=== PATIENT | male | born 1990 | race Caucasian/White ===

== ENCOUNTER 2020-03-03 08:33 | Inpatient (IN) | payer MEDICARE, MEDICAID, SELFPAY ==
[2020-03-03 09:06] VITALS: BP 152/102; PULSE 130; RESP 16; TEMP 37.6; O2SAT 99; BMI 26.5
--- NOTE | 2020-03-03 09:30 | ECG_ITS ---
Test Reason : TACHICARDIA Blood Pressure : / mmHG Vent. Rate : 134 BPM Atrial Rate : 134 BPM P-R Int : 120 ms QRS Dur : 084 ms QT Int : 294 ms P-R-T Axes : 057 082 031 degrees QTc Int : 439 ms Sinus tachycardia Otherwise normal ECG No previous ECGs available Referred By: Ivana Moa Electronically Signed By:JESSIE MOLINA
--- NOTE | 2020-03-03 09:30 | XR_ITS ---
EXAMINATION: XR CHEST CLINICAL INFORMATION: Short of breath COMPARISON: None TECHNIQUE: Frontal view of the chest was obtained. FINDINGS: No significant abnormality is noted involving the heart, lungs, mediastinum, bony thorax or soft tissues. XR/XR chest 1V IMPRESSION: Unremarkable chest examination.
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
[2020-03-03 09:53] VITALS: PULSE 122
[2020-03-03 10:19] LABS: MANUAL DIFF FLAG NO
[2020-03-03 10:20] LABS: Basophils Percent Auto 0.3 % (0-2); Eosinophils Percent Auto 0.1 % (0-4); Hematocrit 51.1 % (42-52); Hemoglobin 18.2 g/dl (14.0-18.0); Imm Gran Abs Auto 0.03 X10*3/uL (0.00-0.03); Imm Gran Pct Auto 0.2 % (0.0-0.4); Lymphocytes Absolute Auto 1.5 X10*3/uL (1.2-4.9); Lymphocytes Percent Auto 11.1 % (20-40); Mean Corpuscular HGB Conc 35.6 g/dl (31.0-36.0); Mean Corpuscular Hemoglobin 32.2 pg (27.0-33.0); Mean Corpuscular Volume 90.4 fL (80-98); Mean Platelet Volume 9.4 fL (9.4-12.4); Monocytes Absolute Auto 1.3 X10*3/uL (0.1-1.2); Monocytes Percent Auto 9.6 % (2-11); Neutrophils Absolute Auto 10.8 X10*3/uL (2.0-8.3); Neutrophils Percent Auto 78.7 % (45-73); Platelet Count 287 X10*3/uL (160-400); Red Blood Count 5.65 X10*6/uL (4.60-5.80); Red Cell Distribution Width 11.8 % (11.0-16.0); White Blood Count 13.7 X10*3/uL (4.8-10.8)
[2020-03-03] MEDS: LORazepam 1 MG TABLET PO (10:21)
[2020-03-03 10:34] LABS: Glucose Urine UA NEG (NEG); Leukocyte Esterase Urine NEG (NEG); Nitrite Urine NEG (NEG); Specific Gravity - Urine 1.015 (1.005-1.025); Urine Blood NEG (NEG); Urine Ketones NEG (NEG); Urine Protein NEG (NEG-TRACE)
[2020-03-03 10:36] LABS: Appearance Urine CLEAR; Color Urine YELLOW
[2020-03-03 10:45] LABS: Ethanol < 10 mg/dL
[2020-03-03 10:47] LABS: Acetaminophen LAB < 1 mcg/mL (<30); Alanine Aminotransferase 85 U/L (0-40); Albumin Level 5.3 g/dL (3.5-5.0); Alkaline Phosphatase 132 U/L (39-117); Anion Gap 15 (12-20); Aspartate Amino Transferase 22 U/L (5-37); Bilirubin Direct 0.5 mg/dL (0.0-0.5); Bilirubin Total 1.2 mg/dL (0.0-1.0); Blood Urea Nitrogen 3 mg/dL (9-16); Calcium 11.8 mg/dL (8.4-10.2); Carbon Dioxide 24 mmol/L (22-29); Chloride 104 mmol/L (96-108); Creatinine Clr Calc Pharmacy 107.5; Estimated Glomerular Filt Rate > 60; Glucose Random 121 mg/dL (60-115); Lipase 17 U/L (8-78); Magnesium 2.2 mg/dL (1.6-2.6); Potassium 3.6 mmol/l (3.3-5.1); Salicylate < 5.0 mg/dL (15-30); Sodium 139 mmol/L (135-145); Total Protein 8.5 g/dL (6.5-8.0)
[2020-03-03 10:48] LABS: Amphetamine Screen Urine Not Detected (Not Detect); Barbiturates, Urine Not Detected (Not Detect); Benzodiazepines Screen Urine Not Detected (Not Detect); Cannabinoid Screen Urine POSITIVE (Not Detect); Cocaine Screen Urine Not Detected (Not Detect); Opiate Screen Urine Not Detected (Not Detect); Phencyclidine Screen Urine Not Detected (Not Detect)
[2020-03-03 12:07] VITALS: BP 147/95; PULSE 119; RESP 18; O2SAT 100
[2020-03-03 15:55] VITALS: BP 130/82; PULSE 103; RESP 16; TEMP 36.4; O2SAT 98
[2020-03-03 18:00] VITALS: BP 151/94; PULSE 123; RESP 16; TEMP 37.1; O2SAT 99
[2020-03-03] MEDS: LORazepam 1 MG TABLET 2 MG PO (18:38)
[2020-03-04] VITALS: BP 132/84; PULSE 82; RESP 18; TEMP 37.2; O2SAT 98
--- NOTE | 2020-03-04 02:09 | PC.NURSE ---
PATIENT RESTING COMFORTABLY AT THIS TIME. RESPIRATIONS EVEN/UNLABORED, CALM/COOPERATIVE. AWAKE, BUT HAS NO NEEDS/COMPLAINTS AT THIS TIME. WILL CONTINUE TO MONITOR. SITTER REMAINS PRESENT.
--- NOTE | 2020-03-04 07:18 | PC.NURSE ---
Report received. PT is eating breakfast. Calm and cooperative. PT is inpatient bed search.
--- NOTE | 2020-03-04 13:31 | PC.NURSE ---
PT is pacing around, wants to be smoke a cigarette. PT is refusing to eat and has not had anything all day today.
[2020-03-04 15:23] VITALS: BP 139/86; PULSE 100; RESP 18; O2SAT 98
--- NOTE | 2020-03-04 15:39 | PC.NURSE ---
Report received from Chaim HERRERA. Patient is resting comfortably in room at this time. Appears anxious at times and stands at edge of room. Shows no sign of attempting to leave. Remains calm and cooperative. Respirations regular and even. SKin PWD. VSS. Awaiting inpatient bed search per N. Evaluates 30 minutes prior. Will continue to monitor.
--- NOTE | 2020-03-04 17:25 | PC.NURSE ---
Patient continues to stand at entry way of room, but remains calm and cooperative, no ditress noted. Will continue to monitor.
--- NOTE | 2020-03-04 18:15 | PC.NURSE ---
Per [facility] bed search is exhausted for today.
--- NOTE | 2020-03-04 19:07 | PC.NURSE ---
Patient just got transferred from main ED, calm and cooperative, ambulated without gait deficit, poor eye contact, currently in shower, per report patient has been assessed by the [facility], disposition in-patient bed search section 12, denied distress at this time, will continue to monitor
[2020-03-04 22:34] LABS: COVID-19 Test Negative (Negative)
[2020-03-04] MEDS: LORazepam 1 MG TABLET 2 MG PO (23:34)
--- NOTE | 2020-03-04 23:44 | PC.NURSE ---
Patient wandering i the POD, requested Olanzapine 20 mg by saying he used to take in the past was off for years, provider notified/decided not order Olanzapine instead offered Ativan 2 mg, patient agreed and accepted/pending effect.
[2020-03-05 00:39] VITALS: BP 140/88; PULSE 111; RESP 18; TEMP 37.2; O2SAT 97
[2020-03-05 06:00] VITALS: BP 137/84; PULSE 112; RESP 20; TEMP 36.8; O2SAT 100
--- NOTE | 2020-03-05 07:34 | PC.NURSE ---
Report received from SHARON White. Patient awake and ate breakfast independently. Calm and cooperative. Walking about POD and interacting with staff. Respirations regular and even. Skin PWD. Remains inpatient bed search at this time. Will continue to monitor.
[2020-03-05] MEDS: Acetaminophen 325 MG TABLET 975 MG PO (08:20)
--- NOTE | 2020-03-05 08:22 | PC.NURSE ---
Patient reporting a headache and requesting Tylenol. Made Elizabeth DOMINGUEZ aware and Tylenol given to patient.
[2020-03-05 09:55] VITALS: BP 118/68; PULSE 110; RESP 16; TEMP 37.1; O2SAT 98
--- NOTE | 2020-03-05 11:28 | PC.NURSE ---
Report received. Pt currently sleeping, no signs of distress, respirations even and unlabored.
--- NOTE | 2020-03-05 13:45 | PC.NURSE ---
Awake at current, drinking a coffee in the common area, calm and cooperative at this time.
--- NOTE | 2020-03-05 15:50 | PC.NURSE ---
Pt on phone at current, no complaints at this time, calm and cooperative
[2020-03-05 15:56] VITALS: BP 117/71; PULSE 93; RESP 18; TEMP 37.1; O2SAT 99
--- NOTE | 2020-03-05 18:44 | PC.NURSE ---
Pt currently resting in bed, no complaints at this time, calm and cooperative.
--- NOTE | 2020-03-05 19:32 | PC.NURSE ---
Report received. PT is walking around the unit. Calm and cooperative. PT is inpatient bed search.
[2020-03-05 21:48] VITALS: BP 130/70; PULSE 94; RESP 18; TEMP 36.8; O2SAT 97
[2020-03-05 23:53] VITALS: BP 136/81; PULSE 102; RESP 20; TEMP 36.4; O2SAT 97
--- NOTE | 2020-03-06 01:21 | PC.NURSE ---
PT is up and pacing around the unit. Asked this nurse for caffeine, this nurse suggested that he try to get some rest in bed, PT was given katelyn shelby to drink and went and sat in the common area to watch TV.
--- NOTE | 2020-03-06 02:03 | PC.NURSE ---
PT laying down in bed. Respirations even and unlabored.
[2020-03-06 04:56] VITALS: RESP 18
[2020-03-06 06:08] VITALS: BP 120/75; PULSE 99; RESP 18; TEMP 36.1; O2SAT 99
--- NOTE | 2020-03-06 06:58 | PC.NURSE ---
Report recieved. PT currently resting, calm and cooperative, denies complaints. PT is inpatient bedsearch.
[2020-03-06 09:56] VITALS: RESP 16
[2020-03-06 16:36] VITALS: BP 123/80; PULSE 96; RESP 18; TEMP 36.6; O2SAT 97
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
[2020-03-07] MEDS: traZODone HCL 50 MG TABLET PO (02:08)
[2020-03-07] MEDS: hydrOXYzine HCL 25 MG TABLET PO (02:08)
[2020-03-07 06:00] VITALS: BP 128/83; PULSE 75; RESP 18; TEMP 36.6; O2SAT 100
[2020-03-07 06:45] VITALS: BP 128/83; PULSE 75; RESP 18; TEMP 36.6; O2SAT 100
[2020-03-07] MEDS: Thiamine HCL 100 MG TABLET PO (08:44)
[2020-03-07 09:09] LABS: Estimated Average Glucose 111 mg/dL; Hemoglobin A1C 151.2579 umol/L; Hemoglobin A1c % 5.5 %
[2020-03-07 09:12] LABS: Amylase 36 U/L (28-100); Cholesterol 157 mg/dL; HDL Cholesterol 40 mg/dL; Iron 187 mcg/dL (45-160); LDL Cholesterol Calculated 99 mg/dl; Lipase 25 U/L (8-78); Magnesium 2.3 mg/dL (1.6-2.6); Percent Iron Saturation 62 % (15-50); Total Iron Binding Capacity 303 mcg/dL (228-428); Triglycerides 93 mg/dL; Unsaturated Iron Binding 116 ug/dL
[2020-03-07 09:35] LABS: TSH reflex Free T4 1.18 mIU/mL (0.32-4.0); Vitamin D 25-OH Total 48.6 ng/mL (>30)
[2020-03-07 09:47] LABS: Folate 10.6 ng/mL (> or = 4.0); Vitamin B12 319 pg/mL (200-900)
[2020-03-07 12:08] VITALS: BMI 26.2
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
[2020-03-07 18:00] VITALS: BP 135/90; PULSE 96; TEMP 35.6
[2020-03-07] MEDS: LORazepam 0.5 MG TABLET PO (19:23)
[2020-03-07] MEDS: OLANZapine 2.5 MG TABLET 7.5 MG PO (20:47)
[2020-03-08 06:00] VITALS: BP 133/98; PULSE 93; TEMP 36.4; O2SAT 100
[2020-03-08] MEDS: Thiamine HCL 100 MG TABLET PO (09:05)
[2020-03-08] MEDS: OLANZapine 5 MG TABLET PO (09:06)
--- NOTE | 2020-03-08 15:33 | HO.PSYCHPN ---
Subjective Subjective Date of Service: 03/08/20 Reason For Visit: Paranoia Subjective Notes: Conditional Voluntary Interim History: took olanzapine - can't tell if it is working yet he slept he discussed not wanting to stay scared of everything Medication Compliance: Yes Side effects from medications: No Attending Groups: Intermittent Review of Systems Comments: no xs sedation Mental Status Exam Mental Status Exam Patient Appearance: Fatigued Patient Orientation: Person, Place and Time Level of Consciousness: Awake Patient Behavior: Guarded Mood Description: Constricted Affect Description: Suspicious Patient Cognition Impaired: No Ability to Follow Directions: Good Speech Pattern: Clear Delusions: Paranoid Ideation Thought Process: Intact and Goal Oriented Thought Content: positive for Intact and positive for Thought Blocking Depressive Symptoms: Diff. Making Decisions Judgement: Fair Diagnostics Vital Signs (24Hr): Vital Signs - 24 hr 03/07/20 18:00 03/08/20 06:00 Temperature 96.0 F L 97.5 F Pulse Rate 96 93 Blood Pressure 135/90 H 133/98 H Pulse Oximetry 100 Body Mass Index 26.2 Labs Results: 03/03/20 10:10 03/03/20 10:10 Labs: Laboratory Results - last 48 hr 03/07/20 03/07/20 03/07/20 08:30 08:30 08:30 Estimat Average Glucose 111 Hemoglobin A1c % 5.5 Magnesium 2.3 Iron 187 H TIBC 303 % Saturation 62 H Unsat Iron Binding 116 Triglycerides 93 Cholesterol 157 LDL Cholesterol, Calc 99 HDL Cholesterol 40 Amylase 36 Lipase 25 Vitamin B12 319 25-OH Vitamin D Total 48.6 Folate 10.6 TSH 1.18 Imaging Radiology Impressions: ITS Impressions Chest X-Ray 03/03/20 09:30 IMPRESSION: Unremarkable chest examination. Medications Medications Current Medications Generic Name Dose Route Start Last Admin Trade Name Freq PRN Reason Stop Dose Admin Acetaminophen 650 mg 03/06/20 16:58 Acetaminophen 325 Mg Tablet PO Q6H PRN Headache/Pain Mild Scale (1-3) Al Hydroxide/Mg Hydroxide 30 ml 03/06/20 16:58 Magnesium Hydrox/Alum Hydrox 30 Ml Oral.Susp PO Q6H PRN Heartburn/Nausea Hydroxyzine HCl 25 mg 03/06/20 16:58 03/07/20 02:08 Hydroxyzine Hcl 25 Mg Tablet PO 25 mg BEDTIME PRN Administration Anxiety Lorazepam 0.5 mg 03/06/20 16:58 03/07/20 19:23 Lorazepam 0.5 Mg Tablet PO 0.5 mg Q4H PRN Administration Anxiety, withdrawal sx Magnesium Hydroxide 30 ml 03/06/20 16:58 Milk Of Magnesia 30 Ml Oral.Susp PO DAILY PRN Constipation Multivitamins/Minerals 1 tab 03/07/20 09:00 03/08/20 09:05 Multivitamin With Minerals Tablet PO 1 tab DAILY KIANA Administration Olanzapine 5 mg 03/06/20 16:58 03/08/20 09:06 Olanzapine 5 Mg Tablet PO 5 mg TID PRN Administration psychosis Olanzapine 10 mg 03/08/20 21:00 Olanzapine 2.5 Mg Tablet PO BEDTIME KIANA Thiamine HCl 100 mg 03/07/20 09:00 03/08/20 09:05 Thiamine Hcl 100 Mg Tablet PO 100 mg DAILY KIANA Administration Trazodone HCl 50 mg 03/06/20 16:58 03/07/20 02:08 Trazodone Hcl 50 Mg Tablet PO 50 mg BEDTIME PRN Administration Insomnia Allergies Allergies Allergy/AdvReac Type Severity Reaction Status Date / Time No Known Allergies Allergy Verified 03/03/20 09:30 Assessment & Plan Assessment & Plan (1) Paranoia: Status: Acute Code(s): F22 - Delusional disorders Assessment and Plan: taking antipsychotic not completely withdrawn sitting in kitchen , sometimes engaging with other patients Greater than 50% of the session was spent on counseling and/or coordination of care
[2020-03-08 16:36] VITALS: BP 132/86; PULSE 117; TEMP 36.9
[2020-03-08] MEDS: OLANZapine 2.5 MG TABLET 10 MG PO (20:31)
[2020-03-08] MEDS: traZODone HCL 50 MG TABLET PO (20:34)
[2020-03-08] MEDS: hydrOXYzine HCL 25 MG TABLET PO (20:34)
[2020-03-09] MEDS: Thiamine HCL 100 MG TABLET PO (08:32)
[2020-03-09] MEDS: OLANZapine 5 MG TABLET PO (08:33)
[2020-03-09 08:44] VITALS: BP 137/67; PULSE 92; TEMP 36.2; O2SAT 97
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
[2020-03-09 18:00] VITALS: BP 136/87; PULSE 120; TEMP 36.9
[2020-03-09] MEDS: traZODone HCL 50 MG TABLET PO (20:03)
[2020-03-09] MEDS: OLANZapine 2.5 MG TABLET 10 MG PO (20:03)
[2020-03-09] MEDS: hydrOXYzine HCL 25 MG TABLET PO (20:03)
[2020-03-10] MEDS: traZODone HCL 50 MG TABLET PO (00:41)
[2020-03-10 06:30] VITALS: BP 149/92; PULSE 100; RESP 18; TEMP 35.9; O2SAT 100
[2020-03-10] MEDS: Thiamine HCL 100 MG TABLET PO (08:26)
[2020-03-10] MEDS: OLANZapine 2.5 MG TABLET PO (08:26)
--- NOTE | 2020-03-10 10:03 | HO.PSYCHPN ---
Subjective Subjective Date of Service: 03/11/20 Reason For Visit: Paranoia Subjective Notes: Conditional Voluntary and 3 Day Interim History: Pt depressed withdrawn denies active si he is paranoid fearful withdrawn Medication Compliance: Yes Mental Status Exam Mental Status Exam Patient Appearance: Appropriate Patient Orientation: Person, Place, Time and Situation Level of Consciousness: Awake Patient Behavior: Guarded Mood Description: Anxious Affect Description: Apathetic Ability to Follow Directions: Good Speech Pattern: Clear Thought Process: Intact Thought Content: positive for Poverty of Content Depressive Symptoms: Diff. Making Decisions and Isolating-Friends/Family Abnormal Motor Activity Signs and Symptoms: Psychomotor Retardation Judgement: Fair Diagnostics Vital Signs (24Hr): Vital Signs - 24 hr 03/09/20 18:00 03/10/20 06:30 Temperature 98.4 F 96.6 F L Pulse Rate 120 H 100 Respiratory Rate 18 Blood Pressure 136/87 149/92 H Pulse Oximetry 100 Body Mass Index 26.2 Labs Results: 03/03/20 10:10 03/03/20 10:10 Imaging Radiology Impressions: ITS Impressions Chest X-Ray 03/03/20 09:30 IMPRESSION: Unremarkable chest examination. Medications Medications Current Medications Generic Name Dose Route Start Last Admin Trade Name Freq PRN Reason Stop Dose Admin Acetaminophen 650 mg 03/06/20 16:58 Acetaminophen 325 Mg Tablet PO Q6H PRN Headache/Pain Mild Scale (1-3) Al Hydroxide/Mg Hydroxide 30 ml 03/06/20 16:58 Magnesium Hydrox/Alum Hydrox 30 Ml Oral.Susp PO Q6H PRN Heartburn/Nausea Hydroxyzine HCl 25 mg 03/06/20 16:58 03/09/20 20:03 Hydroxyzine Hcl 25 Mg Tablet PO 25 mg BEDTIME PRN Administration Anxiety Lorazepam 0.5 mg 03/06/20 16:58 03/07/20 19:23 Lorazepam 0.5 Mg Tablet PO 0.5 mg Q4H PRN Administration Anxiety, withdrawal sx Magnesium Hydroxide 30 ml 03/06/20 16:58 Milk Of Magnesia 30 Ml Oral.Susp PO DAILY PRN Constipation Multivitamins/Minerals 1 tab 03/07/20 09:00 03/10/20 08:26 Multivitamin With Minerals Tablet PO 1 tab DAILY KIANA Administration Olanzapine 10 mg 03/08/20 21:00 03/09/20 20:03 Olanzapine 2.5 Mg Tablet PO 10 mg BEDTIME KIANA Administration Olanzapine 2.5 mg 03/10/20 09:00 03/10/20 08:26 Olanzapine 2.5 Mg Tablet PO 2.5 mg DAILY KIANA Administration Thiamine HCl 100 mg 03/07/20 09:00 03/10/20 08:26 Thiamine Hcl 100 Mg Tablet PO 100 mg DAILY KIANA Administration Trazodone HCl 50 mg 03/06/20 16:58 03/10/20 00:41 Trazodone Hcl 50 Mg Tablet PO 50 mg BEDTIME PRN Administration Insomnia Allergies Allergies Allergy/AdvReac Type Severity Reaction Status Date / Time No Known Allergies Allergy Verified 03/03/20 09:30 Assessment & Plan Assessment & Plan (1) Paranoia: Status: Acute Code(s): F22 - Delusional disorders Assessment and Plan: feliz warning cont zyprexa Greater than 50% of the session was spent on counseling and/or coordination of care
[2020-03-10 17:05] VITALS: BP 135/83; PULSE 106; TEMP 36.8
[2020-03-10] MEDS: OLANZapine 2.5 MG TABLET 10 MG PO (20:26)
[2020-03-11 06:05] VITALS: BP 145/94; PULSE 79; RESP 18; TEMP 36.7; O2SAT 100
[2020-03-11] MEDS: Thiamine HCL 100 MG TABLET PO (08:56)
[2020-03-11] MEDS: OLANZapine 2.5 MG TABLET PO (08:56)
--- NOTE | 2020-03-11 14:14 | P.PNPSI_ITS ---
Subjective Subjective Date of Service: 03/11/20 Reason For Visit: Paranoia Subjective Notes: Martin Warning and 3 Day Interim History: patient somewhat flat dysphoric states he had been cooperative with taking olanzapine up until about a month ago. He had increased the dose of olanzapine on his own to 20 mg and ran out quickly was unable to refill. He had been quite paranoid he is denying hallucinations he is agreeable to outpatient treatment and is asking for olanzapine 20 mg at bedtime Medication Compliance: Yes Mental Status Exam Mental Status Exam Patient Appearance: Appropriate Patient Orientation: Person, Place, Time and Situation Level of Consciousness: Awake Patient Behavior: Guarded and Passive Mood Description: Anxious and Blunted Affect Description: Apathetic Ability to Follow Directions: Good Speech Pattern: Clear and Coherent Thought Process: Intact Thought Content: positive for Poverty of Content, positive for Preoccupation, negative for Suicidal Ideation and negative for Homicidal Ideation Depressive Symptoms: Diff. Making Decisions, Isolating-Friends/Family and Difficulty Concentrating Abnormal Motor Activity Signs and Symptoms: Psychomotor Retardation Judgement: Fair Judgement and Insight: improving judgment agreeable to how crazy patient treatment denies any current suicidal thoughts agreeable to continue medication and states he was stable when taking Diagnostics Vital Signs (24Hr): Vital Signs - 24 hr 03/10/20 17:05 03/11/20 06:05 Temperature 98.2 F 98.1 F Pulse Rate 106 H 79 Respiratory Rate 18 Blood Pressure 135/83 145/94 H Pulse Oximetry 100 Body Mass Index 26.2 Labs Results: 03/03/20 10:10 03/03/20 10:10 Imaging Radiology Impressions: ITS Impressions Chest X-Ray 03/03/20 09:30 IMPRESSION: Unremarkable chest examination. Medications Medications Current Medications Generic Name Dose Route Start Last Admin Trade Name Freq PRN Reason Stop Dose Admin Acetaminophen 650 mg 03/06/20 16:58 Acetaminophen 325 Mg Tablet PO Q6H PRN Headache/Pain Mild Scale (1-3) Al Hydroxide/Mg Hydroxide 30 ml 03/06/20 16:58 Magnesium Hydrox/Alum Hydrox 30 Ml Oral.Susp PO Q6H PRN Heartburn/Nausea Ergocalciferol 1,250 mcg 03/14/20 09:00 Ergocalciferol (Vitamin D2) 1,250 Mcg Capsule PO Fr@0900 [facility] Hydroxyzine HCl 25 mg 03/06/20 16:58 03/09/20 20:03 Hydroxyzine Hcl 25 Mg Tablet PO 25 mg BEDTIME PRN Administration Anxiety Lorazepam 0.5 mg 03/06/20 16:58 03/07/20 19:23 Lorazepam 0.5 Mg Tablet PO 0.5 mg Q4H PRN Administration Anxiety, withdrawal sx Magnesium Hydroxide 30 ml 03/06/20 16:58 Milk Of Magnesia 30 Ml Oral.Susp PO DAILY PRN Constipation Multivitamins/Minerals 1 tab 03/07/20 09:00 03/11/20 08:56 Multivitamin With Minerals Tablet PO 1 tab DAILY KIANA Administration Olanzapine 10 mg 03/08/20 21:00 03/10/20 20:26 Olanzapine 2.5 Mg Tablet PO 10 mg BEDTIME KIANA Administration Olanzapine 2.5 mg 03/10/20 09:00 03/11/20 08:56 Olanzapine 2.5 Mg Tablet PO 2.5 mg DAILY KIANA Administration Thiamine HCl 100 mg 03/07/20 09:00 03/11/20 08:56 Thiamine Hcl 100 Mg Tablet PO 100 mg DAILY KIANA Administration Trazodone HCl 50 mg 03/06/20 16:58 03/10/20 00:41 Trazodone Hcl 50 Mg Tablet PO 50 mg BEDTIME PRN Administration Insomnia Allergies Allergies Allergy/AdvReac Type Severity Reaction Status Date / Time No Known Allergies Allergy Verified 03/03/20 09:30 Assessment & Plan Assessment & Plan (1) Paranoid type delusional disorder: Status: Acute Code(s): F22 - Delusional disorders Assessment and Plan: increase olanzapine to 20 mg at bedtime will not retract 3 day agreeable to outpatient treatment (2) Depression: Status: Acute Code(s): F32.9 - Major depressive disorder, single episode, unspecified Greater than 50% of the session was spent on counseling and/or coordination of care
[2020-03-11 17:20] VITALS: BP 127/93; PULSE 112; TEMP 36.7
[2020-03-11] MEDS: OLANZapine 10 MG TABLET 20 MG PO (20:08)
[2020-03-12 06:00] VITALS: BP 130/86; PULSE 95; TEMP 36.1
[2020-03-12] MEDS: Thiamine HCL 100 MG TABLET PO (08:19)
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
== END 2020-03-12 13:55 | disposition home or self-care (01) | DRG 885 ==
LOC: HO.ED 03-04 18:37 → HO.PM5 03-06 17:22
PROVIDERS: Physician Assistant; Admitting Provider Clinical Nurse Specialist Psychiatric/Mental Health, Adult; Emergency Provider Emergency Medicine Emergency Medical Services; Visit Provider Psychiatry & Neurology Psychiatry
DX: F22 Delusional disorders (principal); F32.9 Major depressive disorder, single episode, unspecified; F17.210 Nicotine dependence, cigarettes, uncomplicated; Z71.6 Tobacco abuse counseling; Z20.828 Contact with and (suspected) exposure to other viral communicable diseases; Z91.14 Patient's other noncompliance with medication regimen; Z79.899 Other long term (current) drug therapy
CPT/HCPCS: 36415; 71045; 80048; 80061; 80076; 80307; 80320; 81003; 82150; 82306; 82607; 82746; 83036; 83540; 83690; 83735; 84443; 85025; 87635; 90792; 93005; 99232; 99239; 99285; G0480

== ENCOUNTER 2020-08-20 09:51 | Inpatient (IN) | payer MEDICARE, MEDICAID, SELFPAY ==
--- NOTE | ~2020-08-20 | XR_ITS ---
EXAMINATION: XR ANKLE, RIGHT CLINICAL INFORMATION: Pain. Trauma. COMPARISON: None TECHNIQUE: 3 views of the right ankle of the right ankle. FINDINGS: There is a transverse nondisplaced fracture of the lateral malleolus. Best appreciated on the lateral view is a questionable vertical fracture of the posterior talus. The ankle mortise is normal. There is diffuse soft tissue swelling. XR/XR ankle RT min 3V IMPRESSION: Transverse nondisplaced fracture of the lateral malleolus and question vertical fracture of the posterior talus. Follow-up CT scan of the foot/ankle recommended.
--- NOTE | ~2020-08-20 | XR_ITS ---
EXAMINATION: XR CHEST CLINICAL INFORMATION: Tachycardia COMPARISON: None TECHNIQUE: Frontal portable view of the chest was obtained. 10:44 PM FINDINGS: Lung volume is low. No acute abnormality. Lungs are normally aerated. No pulmonary vascular congestion. No pleural effusion or pneumothorax. Cardiac and mediastinal contours are normal. XR/XR chest 1V IMPRESSION: Unremarkable examination.
[2020-08-20 10:08] VITALS: BP 151/105; PULSE 120; RESP 18; O2SAT 99; BMI 29.1
--- NOTE | 2020-08-20 10:16 | ECG_ITS ---
Test Reason : TACHYCARDIA Blood Pressure : / mmHG Vent. Rate : 115 BPM Atrial Rate : 115 BPM P-R Int : 140 ms QRS Dur : 084 ms QT Int : 326 ms P-R-T Axes : 045 063 020 degrees QTc Int : 450 ms Artifact in tracing Sinus tachycardia Otherwise normal ECG When compared with ECG of 03-MAR-2020 10:02, No significant change was found Referred By: Elizabeth Escamilla Electronically Signed By:JESSIE MOLINA
--- NOTE | 2020-08-20 10:17 | ED_ITS ---
HPI - Psych General Chief Complaint: Psychiatric Symptoms Stated Complaint: SI ATTEMPT BY JUMPING FROM 2ND FL,R ANK PAIN,SEC12 Time Seen by Provider: 08/20/20 09:57 Source: patient and EMS Mode of arrival: EMS Limitations: other (Vague historian) History of Present Illness HPI Narrative: 29-year-old male with a past medical history of depression and paranoid type delusional disorder presenting to the ED via EMS after he jumped off his 2nd floor balcony. Patient was placed on a Section 12 out in the community for inpt bedsearch. Patient is very vague and does not really answer questions although reports to me that he was arguing with ?Kathy , his girlfriend and the people who were around then did not like the way he was treating her therefore they started to aidan him ?to kill me this is why I had to jump off the 2nd story balcony?. Although patient will not state who he was trying to get away from. Patient appears very depressed. Although at this time patient denies any SI or thoughts of hurting the people who were trying to hurt him or HI. He denies any auditory visual hallucinations. He did not answer me when I asked him if he did any drugs or alcohol he does look down to the floor. Complaining of right ankle pain. Denies head injury or loss of consciousness or any other injuries complaints or concerns at this time. MD complaint: suicidal ideation and feels depressed Onset (ago): minute(s) (Prior to arrival) Duration: constant History of same: Yes Relieving factors: none Exacerbating factors: other (Argument with his girlfriend Kathy) Context: significant life stressor (Patient and his girlfriend Kathy per patient were arguing and she broke up with him) Associated psychiatric symptoms: depression, suicidal ideation and racing thoughts Associated symptoms: other (Right ankle pain/swelling/bruising) Treatments prior to arrival: other (Ice pack placed to right ankle) Related Data Home Medications Medication Instructions Recorded Confirmed cinacalcet 1 tab PO DAILY 08/20/20 08/20/20 fluoxetine 1 cap PO DAILY 08/20/20 08/20/20 hydroxyzine pamoate 1 cap PO BID PRN 08/20/20 08/20/20 olanzapine 10 mg PO BID 08/20/20 08/20/20 trazodone 50 mg PO BEDTIME PRN 08/20/20 08/20/20 Allergies Allergy/AdvReac Type Severity Reaction Status Date / Time No Known Allergies Allergy Verified 03/03/20 09:30 Review of Systems Review of Systems: Constitutional : No Fever, No Chills ENT/Mouth : No Ear Pain, No Nasal Congestion, No sore throat Eyes: No Eye Pain, No Swelling, No Redness Cardiovascular : No Chest Pain, No SOB Respiratory : No Cough, No Sputum, No Dyspnea Gastrointestinal : No ingestions, No Nausea, No Vomiting, No Diarrhea, No He matochezia, No Melena Genitourinary : No Dysuria, No Urinary Frequency, No Hematuria Musculoskeletal : Positive right ankle-foot/joint pain, No Myalgias Skin : No Skin Lesions, No rash Neuro : No Weakness, No Numbness, No Paresthesias, No Dizziness, No Headache, no head injury, no LOC Psych : + Anxiety, + Depression, + SI, + thoughts of self injury, No HI, No AVH, Heme/Lymph: No Lymphadenopathy Endocrine : No Polyuria, No Polydipsia Yes all other systems are reviewed and are negative COUNTS INCLUDE 234 BEDS AT THE [facility] Past Medical History Attestation statement: The following information was validated with the patient. Medical History Noncompliance with medication regimen Vitamin D deficiency Social History Social History Household Members: Significant Other Housing: Apartment Do you presently have visiting nurse or other home services: No Unable to assess alcohol history related to: Unknown Alcohol intake: current Alcohol intake frequency: 3 or more drinks per day Alcohol type: hard liquor Patient Tobacco Use Status: Current everyday Tobacco user Cigarettes Per Day: 3 Years Smoked: 1 month Second Hand Smoke Exposure: No Use of substances other than those prescribed or required for medical reasons: No Substance Use Type: Marijuana Advance Directives: No Advance Directives Information Provided: No service: No Sexual orientation: Straight/Heterosexual Physical Exam Vital Signs: Vital Signs: Last Vital Signs Pulse 120 H 08/20/20 10:08 Resp 18 08/20/20 10:08 BP 151/105 H 08/20/20 10:08 Pulse Ox 99 08/20/20 10:08 Body Mass Index 29.1 vital signs have been reviewed as normal and appeared to be correct. Blood pressure hypertensive 151/105. Heart rate tachycardic at 120. Respiration rate normal. Temperature normal. Oxygen saturation normal. Appearance: Alert. Raghav ented X3. No acute distress. Head: Normal external exam. Normocephalic. Atraumatic. No Ferrera signs noted. No raccoon eyes noted Eyes: PERRLA. EOMI. Conjunctiva and sclera normal. Eyelids normal. ENT: EAC normal. TM's Normal. Pharynx normal. Uvula midline. Moist mucous membranes. No trismus noted. No drooling noted. No muffled voice noted. Neck: Normal inspection. Neck supple. FROM. No adenopathy. Thyroid Normal. No meningeal signs. No neck mass noted. CVS: Normal heart rate and rhythm. Heart sound normal. No murmurs noted. Pulses normal throughout. Respiratory: No respiratory distress. Painless inspiration. Breath sounds normal. No wheezes/rales/rhonchi noted. Chest nontender. No accessory muscle usage noted or decreased air movement noted. Abdomen: Soft and nontender. Bowel sounds normal in all 4 quadrants. No distention noted. No organomegaly noted. No visible injury noted. Back: Full range of motion noted. Nontender. No signs of infection. Skin: Skin warm and dry. Normal skin color. Normal skin turgor. No rashes/lesions/lacerations noted. Extremities: Patient with tenderness to palpation to right foot at the 5th metatarsal. Patient will also tenderness to palpation with soft tissue swelling to right ankle at the lateral and medial malleolus. No laxity or obvious deformities noted. No lower extremity edema. Otherwise all other Extremities exhibit normal range of motion and nontender. Neuro: Oriented X 3. No motor deficit. No sensory deficit. Reflexes normal. Psych: Appearance grossly normal, disheveled, mental status normal, speech and movement normal, speech clear, patient appears very sad and anxious along with depressed. Is cooperative. Does not have a normal thought process/thought content. Does not have good insight or good judgment. Course Course Course Narrative: 10:35am - 29-year-old male presenting to the ED via EMS after he jumped off his 2nd floor [email or web address]. Was seen by N the community and placed on a Section 12 for inpatient bed search. Per patient he reports he was in argument with his girlfriend Kathy and there were people around he does not state who, who did not like the way he was treating her therefore they started to aidan him to kill him therefore he jumped off the 2nd story april injured his right ankle. He denies any SI/HI/auditory visual hallucinations or thoughts of self injury at this time. Reports that he was trying to get away from people not trying to injure himself. Plan: Labs, EKG for medical clearance, UA, drug urine screen, x-ray of right ankle/foot provide 600 mg of Tylenol for the patient's right foot/ankle pain and re-evaluate. Reevaluation(s) Reevaluation #1: - [place] [id number] - random glucose 144. - ALT/alkaline phosphate 51/147 otherwise all other labs are within normal limits. - Patient is negative for all drugs. Negative for EtOH. Negative for COVID. - EKG sinus tachycardia no acute ischemic changes noted. - x-ray of right ankle revealed transverse nondisplaced fracture of lateral malleolus and question vertical fracture of the posterior talus. Therefore I consulted with Riki orthopedic PA and she reported that the patient can be i n a walking boot with weight-bearing as tolerated due to he will be in a psych unit and a splint with an Azar wrap will not be safe for this patient. - therefore patient is medically cleared at this time and placed in Physician observation because the patient will be admitted on a Section 12 for inpatient bed search due to he was sectioned out in the community. At this time patient denies any complaints or concerns at this time. No focal neuro deficits are noted. Lungs clear to auscultation CV RRR. Abdomen is soft and nontender. Will continue to monitor. Time: 12:35 [facility] - Psych Medical Records Attestation: I reviewed the patient's medical records. Lab Data Attestation: I reviewed the patient's lab results. Result diagrams: 08/20/20 11:07 08/20/20 11:07 Labs: Lab Results 08/20/20 08/20/20 08/20/20 Range/Units 10:56 11:07 11:07 WBC 16.3 H (4.8-10.8) X10*3/uL RBC 4.85 (4.60-5.80) X10*6/uL Hgb 15.6 (14.0-18.0) g/dl Hct 43.5 (42-52) % MCV 89.7 (80-98) fL MCH 32.2 (27.0-33.0) pg MCHC 35.9 (31.0-36.0) g/dl RDW 12.7 (11.0-16.0) % Plt Count 352 (160-400) X10*3/uL MPV 8.9 L (9.4-12.4) fL Immature Gran % (Auto) 0.4 (0.0-0.4) % Neut % (Auto) 80.1 H (45-73) % Lymph % (Auto) 10.8 L (20-40) % [place] % (Auto) 8.0 (2-11) % Eos % (Auto) 0.5 (0-4) % Baso % (Auto) 0.2 (0-2) % Lymph # (Auto) 1.8 (1.2-4.9) X10*3/uL [place] # (Auto) 1.3 H (0.1-1.2) X10*3/uL Eos # (Auto) 0.1 (0.0-0.4) X10*3/uL Baso # (Auto) 0.0 (0.0-0.2) X10*3/uL Abs Immat Gran (auto) 0.07 H (0.00-0.03) X10*3/uL Absolute Neuts (auto) 13.0 H (2.0-8.3) X10*3/uL Absolute Nucleated RBC 0.000 (0.0-0.012) X10*3/uL Nucleated RBC % (auto) 0.0 (0.0-0.2) /100WBC PT 11.6 (10.8-13.0) SEC INR 1.0 (0.9-1.1) Sodium (135-145) mmol/L Potassium (3.3-5.1) mmol/L Chloride (96-108) mmol/L Carbon Dioxide (22-29) mmol/L Anion Gap (12-20) BUN (9-16) mg/dL Creatinine (0.5-1.4) mg/dL Estim Creat Clear Calc Estimated GFR Random Glucose (60-115) mg/dL Calcium (8.4-10.2) mg/dL Magnesium (1.6-2.6) mg/dL Total Bilirubin (0.0-1.0) mg/dL AST (5-37) U/L ALT (0-40) U/L Alkaline Phosphatase (39-117) U/L Total Protein (6.5-8.0) g/dL Albumin (3.5-5.0) g/dL Urine Opiates Screen Not Detected (Not Detect) Ur Barbiturates Screen Not Detected (Not Detect) Ur Phencyclidine Scrn Not Detected (Not Detect) Ur Amphetamines Screen Not Detected (Not Detect) U Benzodiazepines Scrn Not Detected (Not Detect) Urine Cocaine Screen Not Detected (Not Detect) U Marijuana (THC) Screen Not Detected (Not Detect) Ethyl Alcohol mg/dL COVID-19 (JARAD) (Negative) COVID-19 Clin Com 08/20/20 08/20/20 08/20/20 Range/Units 11:07 11:07 11:28 WBC (4.8-10.8) X10*3/uL RBC (4.60-5.80) X10*6/uL Hgb (14.0-18.0) g/dl Hct (42-52) % MCV (80-98) fL MCH (27.0-33.0) pg MCHC (31.0-36.0) g/dl RDW (11.0-16.0) % Plt Count (160-400) X10*3/uL MPV (9.4-12.4) fL Immature Gran % (Auto) (0.0-0.4) % Neut % (Auto) (45-73) % Lymph % (Auto) (20-40) % [place] % (Auto) (2-11) % Eos % (Auto) (0-4) % Baso % (Auto) (0-2) % Lymph # (Auto) (1.2-4.9) X10*3/uL [place] # (Auto) (0.1-1.2) X10*3/uL Eos # (Auto) (0.0-0.4) X10*3/uL Baso # (Auto) (0.0-0.2) X10*3/uL Abs Immat Gran (auto) (0.00-0.03) X10*3/uL Absolute Neuts (auto) (2.0-8.3) X10*3/uL Absolute Nucleated RBC (0.0-0.012) X10*3/uL Nucleated RBC % (auto) (0.0-0.2) /100WBC PT (10.8-13.0) SEC INR (0.9-1.1) Sodium 135 (135-145) mmol/L Potassium 3.4 (3.3-5.1) mmol/L Chloride 104 (96-108) mmol/L Carbon Dioxide 22 (22-29) mmol/L Anion Gap 12 (12-20) BUN 3 L (9-16) mg/dL Creatinine 0.81 (0.5-1.4) mg/dL Estim Creat Clear Calc 133.0 Estimated GFR > 60 Random Glucose 144 H (60-115) mg/dL Calcium 10.7 H D (8.4-10.2) mg/dL Magnesium 2.0 (1.6-2.6) mg/dL Total Bilirubin 1.0 (0.0-1.0) mg/dL AST 24 (5-37) U/L ALT 51 H (0-40) U/L Alkaline Phosphatase 147 H (39-117) U/L Total Protein 7.5 (6.5-8.0) g/dL Albumin 4.7 (3.5-5.0) g/dL Urine Opiates Screen (Not Detect) Ur Barbiturates Screen (Not Detect) Ur Phencyclidine Scrn (Not Detect) Ur Amphetamines Screen (Not Detect) U Benzodiazepines Scrn (Not Detect) Urine Cocaine Screen (Not Detect) U Marijuana (THC) Screen (Not Detect) Ethyl Alcohol < 10 mg/dL COVID-19 (JARAD) Negative (Negative) COVID-19 Clin Com See Note Imaging Data Right ankle/foot x-ray: Attestation: I personally reviewed and interpreted this imaging study as follows: Radiologist's impression: FINDINGS: There is a transverse nondisplaced fracture of the lateral malleolus. Best appreciated on the lateral view is a questionable vertical fracture of the posterior talus. The ankle mortise is normal. There is diffuse soft tissue swelling. XR/XR ankle RT min 3V IMPRESSION: Transverse nondisplaced fracture of the lateral malleolus and question vertical fracture of the posterior talus. Follow-up CT scan of the foot/ankle recommended. ECG Data Attestation: I personally reviewed and interpreted this ECG as follows: ECG interpretation date: 08/20/20 ECG interpretation time: 10:29 Interpretation: Sinus tachycardia ventricular rate of 115 with a normal [place] i nterval normal QRS duration normal QT/QTC interval. No acute ischemic change noted. Similar when compared to prior EKG March [id number] Critical Care Time Critical Care Time Critical Care Time: Yes Total Critical Care Time: 60 Attestation: I personally attest to this time spent taking care of the patient Discharge Plan Discharge Clinical Impression: Paranoia, Acute psychosis, Suicidal ideation, Delusion, Ankle fracture, lateral malleolus, closed Instructions: Ankle Fracture (ED), Walking Boot (ED) Prescriptions: No Action fluoxetine 40 mg capsule 1 cap PO DAILY RF: 0 trazodone 50 mg tablet 50 mg PO BEDTIME PRN (Reason: Sleep) RF: 0 hydroxyzine pamoate 50 mg capsule 1 cap PO BID PRN (Reason: anxiety) RF: 0 olanzapine 20 mg tablet 10 mg PO BID RF: 0 cinacalcet 30 mg tablet 1 tab PO DAILY RF: 0 Referrals: Adry Dalal MD [Physician] - 1 week
--- NOTE | 2020-08-20 10:50 | PC.NURSE ---
Rita CervantesAccident, aunt for patient, called to give information about what happened prior to patient arrival. Patients girlfriend is with the aunt and the girlfriend was with patient. Girlfriend states patient was hallucinating and hearing voices prior to jumping out the window. Girlfriend denies patient trying to hurt her in any way.
[2020-08-20 11:11] LABS: MANUAL DIFF FLAG NO
[2020-08-20 11:13] LABS: Basophils Percent Auto 0.2 % (0-2); Eosinophils Absolute Auto 0.1 X10*3/uL (0.0-0.4); Eosinophils Percent Auto 0.5 % (0-4); Hematocrit 43.5 % (42-52); Hemoglobin 15.6 g/dl (14.0-18.0); Imm Gran Abs Auto 0.07 X10*3/uL (0.00-0.03); Imm Gran Pct Auto 0.4 % (0.0-0.4); Lymphocytes Absolute Auto 1.8 X10*3/uL (1.2-4.9); Lymphocytes Percent Auto 10.8 % (20-40); Mean Corpuscular HGB Conc 35.9 g/dl (31.0-36.0); Mean Corpuscular Hemoglobin 32.2 pg (27.0-33.0); Mean Corpuscular Volume 89.7 fL (80-98); Mean Platelet Volume 8.9 fL (9.4-12.4); Monocytes Absolute Auto 1.3 X10*3/uL (0.1-1.2); Neutrophils Percent Auto 80.1 % (45-73); Platelet Count 352 X10*3/uL (160-400); Red Blood Count 4.85 X10*6/uL (4.60-5.80); Red Cell Distribution Width 12.7 % (11.0-16.0); White Blood Count 16.3 X10*3/uL (4.8-10.8)
[2020-08-20 11:18] LABS: Prothrombin Time 11.6 SEC (10.8-13.0)
[2020-08-20] MEDS: Ibuprofen 600 MG TABLET PO (11:30)
[2020-08-20 11:33] LABS: Amphetamine Screen Urine Not Detected (Not Detect); Barbiturates, Urine Not Detected (Not Detect); Benzodiazepines Screen Urine Not Detected (Not Detect); Cannabinoid Screen Urine Not Detected (Not Detect); Cocaine Screen Urine Not Detected (Not Detect); Opiate Screen Urine Not Detected (Not Detect); Phencyclidine Screen Urine Not Detected (Not Detect)
[2020-08-20 11:43] LABS: Ethanol < 10 mg/dL
[2020-08-20 11:53] LABS: Alanine Aminotransferase 51 U/L (0-40); Albumin Level 4.7 g/dL (3.5-5.0); Alkaline Phosphatase 147 U/L (39-117); Anion Gap 12 (12-20); Aspartate Amino Transferase 24 U/L (5-37); Carbon Dioxide 22 mmol/L (22-29); Chloride 104 mmol/L (96-108); Estimated Glomerular Filt Rate > 60; Glucose Random 144 mg/dL (60-115); Potassium 3.4 mmol/L (3.3-5.1); Sodium 135 mmol/L (135-145); Total Protein 7.5 g/dL (6.5-8.0)
[2020-08-20 12:01] LABS: COVID-19 Test Negative (Negative); IDNOW Serial# 9DD0AD1C
[2020-08-20 12:12] LABS: Blood Urea Nitrogen 3 mg/dL (9-16)
[2020-08-20 12:13] LABS: Calcium 10.7 mg/dL (8.4-10.2)
--- NOTE | 2020-08-20 13:33 | PC.NURSE ---
Patient served a meal tray. Pt refusing to eat and just sits in bed looking down. Pt is calm and cooperative with staff.
[2020-08-20] MEDS: FLUoxetine HCl 20 MG CAPSULE 40 MG PO (13:35)
[2020-08-20] MEDS: OLANZapine 10 MG TABLET PO ×2 (13:35→20:16)
--- NOTE | 2020-08-20 14:36 | PHA.MEDREC ---
Pharmacy Consult ? Medication Reconciliation Pharmacy has completed the medication reconciliation.
[2020-08-20] MEDS: Acetaminophen 325 MG TABLET 975 MG PO (17:24)
[2020-08-20 18:38] VITALS: BP 126/93; PULSE 134; RESP 18; TEMP 35.9; O2SAT 96
[2020-08-20] MEDS: traZODone HCL 50 MG TABLET PO (20:16)
[2020-08-20] MEDS: hydrOXYzine HCL 50 MG TABLET PO (20:16)
[2020-08-20] MEDS: Ibuprofen 800 MG TABLET PO (20:17)
[2020-08-20 22:05] VITALS: BP 124/85; PULSE 117; RESP 18; TEMP 36.2; O2SAT 98
--- NOTE | 2020-08-20 22:20 | PC.NURSE ---
Late entry: pt referred to main ed for concerns regarding further work up for sepsis. rn field case manager notified.
[2020-08-20 22:27] VITALS: BP 126/89; PULSE 120; RESP 16; O2SAT 97
[2020-08-20] MEDS: 0.9 % Sodium Chloride 1,000 ML 999 ML IVCONT (22:27)
--- NOTE | 2020-08-20 22:32 | PC.NURSE ---
Pt transferred from the pod into room 6 due to concern for sepsis r/t tachycardia and feeling unwell. IV established, BCX and lactic obtained. IVF infusing per MAR. VSS at this time, pt ST on the monitor @ 120 bpm. MANAGER ACTUARIAL aware. Continue to monitor.
--- NOTE | 2020-08-20 22:40 | PC.NURSE ---
report given to thierno gaspar. no questions pt is 1;1 with sitter in main er.
[2020-08-20 22:49] LABS: Lactic Acid 1.3 mmol/L (0.5-2.0)
[2020-08-21] VITALS (7 sets, daily range): BP systolic 117–142; BP diastolic 80–96; PULSE 86–120; RESP 16–20; TEMP 36.8–37.7; O2SAT 96–99
--- NOTE | 2020-08-21 01:33 | PC.NURSE ---
Pt resting in bed at this time, wakes easily to voice. Calm/cooperative with care. Sitter at bedside. VSS. Continue to monitor.
[2020-08-21] MEDS: 0.9 % Sodium Chloride 1,000 ML 999 ML IVCONT (02:15)
--- NOTE | 2020-08-21 02:15 | PC.NURSE ---
Per SENIOR INFORMATION DEVELOPER, after second liter of NS, pt medically cleared and can return to the BH pod. IVF infusing per MAR.
--- NOTE | 2020-08-21 03:42 | PC.NURSE ---
Report given to Chaim, plan for pt to return to the pod.
--- NOTE | 2020-08-21 04:26 | PC.NURSE ---
PT was transferred to pod via wheelchair. PT injured his right foot jumping off a balcony yesterday. Foot is in an air cast, PT is able to transfer himself from wheelchair to bed on his own strength.
[2020-08-21] MEDS: FLUoxetine HCl 20 MG CAPSULE 40 MG PO (09:03)
[2020-08-21] MEDS: OLANZapine 10 MG TABLET PO ×2 (09:03→23:03)
--- NOTE | 2020-08-21 13:02 | PC.ADMIT ---
Addendum entered by Maryjo Luque RN 08/21/20 13:34: Rolan is a 29 year old male admitted to [facility] from our ED on CV for treatment of exacerbation of longstanding schizoaffective disorder. Per crisis eval Rolan is off medication , isolating, agitated, jumped off a second floor balcony due to auditory hallucinations and delusional belief that someone is trying to kill him. His right leg was injured as a result of this jump. On admission, Rolan is in hospital garb and hygiene is within normal limits. He is not oriented to day, date, time. He indicates disorientation to situation in that he states he is here for treatment of his leg injury, When asked why he signed CV for inpatient psychiatric treatment he stated, I don't know . Rolan appears to be either guarded or a poor historian. His response to many questions was, I don't know . His participation during the admission assessment was marked by mumbled, soft, frequently inaudible speech. He exhibited delayed responses, perhaps thought blocking. He denies perceptual disturbances. He confirms hearing sounds that others don't hear but attributed this to his ability to hear being better than others. When asked why he jumped off the balcony, he states that he had two choices : either jump off the balcony or be killed by the people knocking on his door with guns. It is not corroborated that this was the actual situation. He was unable to state why someone may want to harm him. He denies ideation, plan or intent to harm himself or anyone else. He denies anxiety. He reports that he has been drinking 32oz of vodka at a time once or twice per month He is not exhibiting signs of withdrawal at present. Rolan is wearing an aircast on right lower leg. He reports 10/10 pain with activity, 8/10 pain at rest. ED states he can ambulate. He states he is unable to walk on the aircast and was observed crawling in his room. He is at high risk for falls. He is currently resting in bed. Rolan signed a release for brother only and declined other releases. Original Note: Rolan is a 29 year old male admitted to M3 from our ED on CV for treatment of exacerbation of longstanding schizoaffective disorder. Per crisis fariba Gongora is off medication , isolating, agitated, jumped off a second floor balcony due to auditory hallucinations and delusional belief that someone is trying to kill him. His right leg was injured as a result of this jump. On admission, Rolan is in hospital garb and hygiene is within normal limits. He is not oriented to day, date, time. He indicates disorientation to situation in that he states he is hear for treatment of his leg injury, When asked why he signed CV for inpatient psychiatric treament he stated, I don't know
[2020-08-21] MEDS: Acetaminophen 325 MG TABLET 975 MG PO (18:41)
[2020-08-21] MEDS: LORazepam 1 MG TABLET 2 MG PO (19:31)
--- NOTE | 2020-08-21 19:47 | PC.NURSE ---
At 1800 Rolan's heart rate, blood pressure and temp were elevated. CIWA erformed. Pt scored 7. Dr Nicolasa Quijano informed. Order for UA, hospitalist consult and order to give ativan prn as ordered after urine obtained. However, patient declined to give urine. He appears paranoid. Despite education about need to assess urine for infection and to obtain accurate history to assess for withdrawal patient remains guarded and declines to give urine or history of substance use. He continues to decline urine. Due to patient presentation, ativan 2mg given po.
[2020-08-21] MEDS: traZODone HCL 50 MG TABLET PO (23:02)
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
[2020-08-22] MEDS: PHENobarbitaL sodium 130 MG/ML VIAL 246 MG IM (01:24)
[2020-08-22 01:34] VITALS: BP 116/61; PULSE 100; TEMP 36.8; O2SAT 95
--- NOTE | 2020-08-22 01:35 | PC.NURSE ---
patient accepted phenobarbital injection as ordered by hospitalist. 116/61, 100, 95% ra. pt is clammy. was sleeping and was easily aroused. pt fell asleep after IM administered and VS taken.
[2020-08-22] MEDS: PHENobarbitaL sodium 130 MG/ML VIAL 185 MG IM ×2 (03:33→06:52)
--- NOTE | 2020-08-22 03:45 | PC.NURSE ---
allowed for second im of phenobarbital. 121/78, 89, 98% RA.
[2020-08-22 03:48] VITALS: BP 121/78; PULSE 89; O2SAT 98
[2020-08-22 06:30] VITALS: BP 119/80; PULSE 99; O2SAT 96
[2020-08-22 08:00] VITALS: BP 125/78; PULSE 93; RESP 18; O2SAT 97
[2020-08-22] MEDS: OLANZapine 10 MG TABLET PO ×2 (09:33→20:21)
[2020-08-22] MEDS: Thiamine HCL 100 MG TABLET PO (09:33)
[2020-08-22] MEDS: FLUoxetine HCl 20 MG CAPSULE 40 MG PO (09:33)
[2020-08-22] MEDS: Folic Acid 1 MG TABLET PO (09:33)
[2020-08-22] MEDS: PHENobarbitaL 15 MG TABLET 45 MG PO ×2 (09:33→20:21)
[2020-08-22 11:05] LABS: Glucose Urine UA NEG (NEG); Leukocyte Esterase Urine NEG (NEG); Nitrite Urine NEG (NEG); Specific Gravity - Urine 1.025 (1.005-1.025); Urine Blood NEG (NEG); Urine Ketones 40 MG/DL (NEG); Urine Protein NEG (NEG-TRACE)
[2020-08-22 11:19] LABS: Appearance Urine CLEAR; Color Urine YELLOW
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
[2020-08-22 16:00] VITALS: BP 132/76; PULSE 110; RESP 18; TEMP 36.9; O2SAT 98
[2020-08-22 20:00] VITALS: BP 133/81; PULSE 90; RESP 22; TEMP 37.1; O2SAT 98
[2020-08-22] MEDS: Acetaminophen 325 MG TABLET 975 MG PO (20:20)
[2020-08-23 08:00] VITALS: BP 136/86; PULSE 90; RESP 16; TEMP 36.2; O2SAT 98
[2020-08-23] MEDS: Folic Acid 1 MG TABLET PO (08:39)
[2020-08-23] MEDS: Thiamine HCL 100 MG TABLET PO (08:40)
[2020-08-23] MEDS: OLANZapine 10 MG TABLET PO ×2 (08:40→20:32)
[2020-08-23] MEDS: PHENobarbitaL 15 MG TABLET 45 MG PO ×2 (08:40→20:32)
[2020-08-23] MEDS: FLUoxetine HCl 20 MG CAPSULE 40 MG PO (08:40)
--- NOTE | 2020-08-23 13:55 | P.PNPSI_ITS ---
Subjective Subjective Date of Service: 08/23/20 Reason For Visit: Depression psychosis SI Interim History: Patient isolative withdrawn and internally preoccupied lethargic Medication Compliance: Yes Mental Status Exam Mental Status Exam Patient Appearance: Appropriate Patient Orientation: Person, Place, Time and Situation Level of Consciousness: Awake Patient Behavior: Guarded and Passive Mood Description: Anxious and Blunted Affect Description: Apathetic and Flat Ability to Follow Directions: Good Speech Pattern: Clear and Coherent Hallucinations: None Delusions: Paranoid Ideation ( Residual trust issues sensitivity to the environment but denied active thoughts that people were conspiring against him or signals in the environment) Thought Process: Intact Thought Content: positive for Poverty of Content, positive for Preoccupation, negative for Suicidal Ideation and negative for Homicidal Ideation Depressive Symptoms: Diff. Making Decisions, Isolating-Friends/Family and Difficulty Concentrating Judgement: Fair Judgement and Insight: improved judgment agreeable to treatment denies any current suicidal thoughts agreeable to continue medication and states he was stable when taking medication outpt Diagnostics Vital Signs (24Hr): Vital Signs - 24 hr 08/22/20 16:00 08/22/20 20:00 08/23/20 08:00 Temperature 98.4 F 98.8 F 97.2 F Pulse Rate 110 H 90 90 Respiratory Rate 18 22 H 16 Blood Pressure 132/76 133/81 136/86 Pulse Oximetry 98 98 98 Body Mass Index 29.1 Labs Results: 08/20/20 11:07 08/20/20 11:07 Labs: Laboratory Results - last 48 hr 08/22/20 10:00 Urine Color YELLOW Urine Appearance CLEAR Urine pH 6.0 Ur Specific [place] 1.025 Urine Protein NEG Urine Glucose (UA) NEG Urine Ketones 40 Urine Blood NEG Urine Nitrite NEG Ur Leukocyte Esterase NEG Imaging Radiology Impressions: ITS Impressions Ankle X-Ray 08/20/20 10:15 IMPRESSION: Transverse nondisplaced fracture of the lateral malleolus and question vertical fracture of the posterior talus. Follow-up CT scan of the foot/ankle recommended. Chest X-Ray 08/20/20 21:51 IMPRESSION: Unremarkable examination. Medications Medications Current Medications Generic Name Dose Route Start Last Admin Trade Name Freq PRN Reason Stop Dose Admin Acetaminophen 975 mg 08/20/20 16:49 08/22/20 20:20 Acetaminophen 325 Mg Tablet PO 975 mg Q6H PRN Administration pain Al Hydroxide/Mg Hydroxide 30 ml 08/21/20 11:22 Magnesium Hydrox/Alum Hydrox 30 Ml Oral.Susp PO Q6H PRN Heartburn/Nausea Fluoxetine HCl 40 mg 08/20/20 12:00 08/23/20 08:40 Fluoxetine Hcl 20 Mg Capsule PO 40 mg DAILY KIANA Administration Folic Acid 1 mg 08/22/20 09:00 08/23/20 08:39 Folic Acid 1 Mg Tablet PO 1 mg DAILY KIANA Administration Hydroxyzine HCl 50 mg 08/20/20 11:57 08/20/20 20:16 Hydroxyzine Hcl 50 Mg Tablet PO 50 mg BID PRN Administration anxiety Ibuprofen 800 mg 08/20/20 16:49 08/20/20 20:17 Ibuprofen 800 Mg Tablet PO 800 mg Q6H PRN Administration pain Magnesium Hydroxide 30 ml 08/21/20 11:22 Milk Of Magnesia 30 Ml Oral.Susp PO DAILY PRN Constipation Medication 1 each 08/22/20 09:00 No Benzodiazepines MISCELLANE DAILY KIANA Nicotine Polacrilex 4 mg 08/22/20 09:20 Nicotine Polacrilex 4 Mg Lozenge BUCCAL Q1H PRN Nicotine Cravings Olanzapine 10 mg 08/20/20 12:00 08/23/20 08:40 Olanzapine 10 Mg Tablet PO 10 mg BID KIANA Administration Phenobarbital 45 mg 08/22/20 09:00 08/23/20 08:40 Phenobarbital 15 Mg Tablet PO 08/23/20 21:01 45 mg BID KIANA Administration Protocol Phenobarbital 30 mg 08/24/20 09:00 Phenobarbital 30 Mg Tablet PO 08/25/20 21:01 BID KIANA Protocol Phenobarbital 30 mg 08/26/20 09:00 Phenobarbital 30 Mg Tablet PO 08/27/20 09:01 DAILY KIANA Protocol Thiamine HCl 100 mg 08/22/20 09:00 08/23/20 08:40 Thiamine Hcl 100 Mg Tablet PO 100 mg DAILY KIANA Administration Trazodone HCl 50 mg 08/20/20 11:57 08/21/20 23:02 Trazodone Hcl 50 Mg Tablet PO 50 mg BEDTIME PRN Administration Sleep Trazodone HCl 50 mg 08/21/20 11:22 Trazodone Hcl 50 Mg Tablet PO BEDTIME PRN Insomnia Allergies Allergies Allergy/AdvReac Type Severity Reaction Status Date / Time No Known Allergies Allergy Verified 03/03/20 09:30 Assessment & Plan Assessment & Plan (1) Acute psychosis: Status: Acute Code(s): F23 - Brief psychotic disorder Assessment and Plan: restart zyprexa 10 BID. also taking prozac 40. Monitor for mood and psychosis (2) Alcohol abuse with withdrawal: Status: Acute Code(s): F10.139 - Alcohol abuse with withdrawal, unspecified Assessment and Plan: phenobarb protocol monitor withdrawal (3) Ankle fracture, lateral malleolus, closed: Qualifiers: Encounter type: sequela Fracture alignment: nondisplaced Laterality: unspecified laterality Qualified Code(s): S82.66XS - Nondisplaced fracture of lateral malleolus of unspecified fibula, sequela Status: Acute Code(s): S82.63XA - Displaced fracture of lateral malleolus of unspecified fibula, initial encounter for closed fracture Assessment and Plan: soft cast Greater than 50% of the session was spent on counseling and/or coordination of care Reason for contiued inpatient stay Substantial Risk for: harm to self and inability to function
[2020-08-23 15:38] VITALS: BP 118/76; PULSE 93; RESP 18; TEMP 37.1; O2SAT 98
[2020-08-23 20:00] VITALS: BP 112/64; PULSE 90; RESP 16; TEMP 36.4; O2SAT 93
[2020-08-24] MEDS: Folic Acid 1 MG TABLET PO (08:19)
[2020-08-24] MEDS: PHENobarbitaL 30 MG TABLET PO ×2 (08:19→20:33)
[2020-08-24] MEDS: Thiamine HCL 100 MG TABLET PO (08:19)
[2020-08-24] MEDS: OLANZapine 10 MG TABLET PO (08:19)
[2020-08-24] MEDS: FLUoxetine HCl 20 MG CAPSULE 40 MG PO (08:19)
[2020-08-24 08:22] VITALS: BP 132/74; PULSE 87; RESP 16; TEMP 36.6; O2SAT 97
[2020-08-24 16:00] VITALS: BP 128/67; PULSE 82; RESP 16; TEMP 37.6; O2SAT 97
[2020-08-24 20:00] VITALS: BP 160/92; PULSE 88; RESP 16; TEMP 38
[2020-08-24] MEDS: OLANZapine 7.5 MG TABLET 15 MG PO (20:33)
[2020-08-25 08:00] VITALS: BP 136/80; PULSE 97; TEMP 36.9; O2SAT 94
[2020-08-25] MEDS: FLUoxetine HCl 20 MG CAPSULE 40 MG PO (08:40)
[2020-08-25] MEDS: Thiamine HCL 100 MG TABLET PO (08:40)
[2020-08-25] MEDS: Folic Acid 1 MG TABLET PO (08:40)
[2020-08-25] MEDS: PHENobarbitaL 30 MG TABLET PO ×2 (08:41→20:33)
--- NOTE | 2020-08-25 12:50 | HO.PSYCHPN ---
Subjective Subjective Date of Service: 08/25/20 Reason For Visit: Depression psychosis SI Subjective Notes: Conditional Voluntary Healthcare Proxy: No Guardianship: No Interim History: pt is found sleeping in his bed; seen initially with validation specialist. his answers to questions indicate he is fluent in kosovan and the vocational trainer is able to leave the interview after a few minutes. he states he would like to discharge [facility]. his 3-day notice is discussed and that it will mature on . pt states he is taking his medications. he ambivalently acknowledges that he has a severe mental illness but then denies having experienced SI recently and minimizes the recent seriousness of his actions. states he takes the medications when he feels like he needs them at home. MD counseled him to take the medications daily to prevent episodes like this from happening again. pt states he just wants to discharge to go home to be with his GF kingsley at their apartment. per staff needs assitance to amublate due to soft cast. denies HI/SI. eating better. sleeping well. med-compliant. Medication Compliance: Yes Mental Status Exam Mental Status Exam Narrative: pt appears tired, lying in bed under covers. appears to be wearing hospital marine. no PMA, possibly PMR. cooperative with interview. speech soft, slowed, sparse, flattened, increased in latency. thoughts linear and logical. affect blunted. mood not assessed. denies SI. no HI/AVH expressed. Diagnostics Vital Signs (24Hr): Vital Signs - 24 hr 08/24/20 16:00 08/24/20 20:00 08/25/20 08:00 Temperature 99.7 F 100.4 F 98.4 F Pulse Rate 82 88 97 Respiratory Rate 16 16 Blood Pressure 128/67 160/92 H 136/80 Pulse Oximetry 97 94 Body Mass Index 29.1 Labs Results: 08/20/20 11:07 08/20/20 11:07 Imaging Radiology Impressions: ITS Impressions Ankle X-Ray 08/20/20 10:15 IMPRESSION: Transverse nondisplaced fracture of the lateral malleolus and question vertical fracture of the posterior talus. Follow-up CT scan of the foot/ankle recommended. Chest X-Ray 08/20/20 21:51 IMPRESSION: Unremarkable examination. Medications Medications Current Medications Generic Name Dose Route Start Last Admin Trade Name Freq PRN Reason Stop Dose Admin Acetaminophen 975 mg 08/20/20 16:49 08/22/20 20:20 Acetaminophen 325 Mg Tablet PO 975 mg Q6H PRN Administration pain Al Hydroxide/Mg Hydroxide 30 ml 08/21/20 11:22 Magnesium Hydrox/Alum Hydrox 30 Ml Oral.Susp PO Q6H PRN Heartburn/Nausea Fluoxetine HCl 40 mg 08/20/20 12:00 08/25/20 08:40 Fluoxetine Hcl 20 Mg Capsule PO 40 mg DAILY KIANA Administration Folic Acid 1 mg 08/22/20 09:00 08/25/20 08:40 Folic Acid 1 Mg Tablet PO 1 mg DAILY KIANA Administration Hydroxyzine HCl 50 mg 08/20/20 11:57 08/20/20 20:16 Hydroxyzine Hcl 50 Mg Tablet PO 50 mg BID PRN Administration anxiety Ibuprofen 800 mg 08/20/20 16:49 08/20/20 20:17 Ibuprofen 800 Mg Tablet PO 800 mg Q6H PRN Administration pain Magnesium Hydroxide 30 ml 08/21/20 11:22 Milk Of Magnesia 30 Ml Oral.Susp PO DAILY PRN Constipation Medication 1 each 08/22/20 09:00 No Benzodiazepines MISCELLANE DAILY KIANA Nicotine Polacrilex 4 mg 08/22/20 09:20 Nicotine Polacrilex 4 Mg Lozenge BUCCAL Q1H PRN Nicotine Cravings Olanzapine 15 mg 08/24/20 21:00 08/24/20 20:33 Olanzapine 7.5 Mg Tablet PO 15 mg BEDTIME KIANA Administration Phenobarbital 30 mg 08/24/20 09:00 08/25/20 08:41 Phenobarbital 30 Mg Tablet PO 08/25/20 21:01 30 mg BID KIANA Administration Protocol Phenobarbital 30 mg 08/26/20 09:00 Phenobarbital 30 Mg Tablet PO 08/27/20 09:01 DAILY KIANA Protocol Thiamine HCl 100 mg 08/22/20 09:00 08/25/20 08:40 Thiamine Hcl 100 Mg Tablet PO 100 mg DAILY KIANA Administration Trazodone HCl 50 mg 08/20/20 11:57 08/21/20 23:02 Trazodone Hcl 50 Mg Tablet PO 50 mg BEDTIME PRN Administration Sleep Trazodone HCl 50 mg 08/21/20 11:22 Trazodone Hcl 50 Mg Tablet PO BEDTIME PRN Insomnia Allergies Allergies Allergy/AdvReac Type Severity Reaction Status Date / Time No Known Allergies Allergy Verified 03/03/20 09:30 Assessment & Plan Assessment & Plan (1) Acute psychosis: Status: Acute Code(s): F23 - Brief psychotic disorder Assessment and Plan: restarted zyprexa 10 BID. also taking prozac 40. Monitor for mood and psychosis (2) Alcohol abuse with withdrawal: Status: Acute Code(s): F10.139 - Alcohol abuse with withdrawal, unspecified Assessment and Plan: phenobarb protocol monitor withdrawal (3) Ankle fracture, lateral malleolus, closed: Qualifiers: Encounter type: sequela Fracture alignment: nondisplaced Laterality: unspecified laterality Qualified Code(s): S82.66XS - Nondisplaced fracture of lateral malleolus of unspecified fibula, sequela Status: Acute Code(s): S82.63XA - Displaced fracture of lateral malleolus of unspecified fibula, initial encounter for closed fracture Assessment and Plan: soft cast Greater than 50% of the session was spent on counseling and/or coordination of care Reason for contiued inpatient stay Substantial Risk for: harm to self, harm to others, inability to function and rapid decompensation
[2020-08-25] MEDS: Acetaminophen 325 MG TABLET 975 MG PO (16:21)
[2020-08-25 20:28] VITALS: BP 139/91; PULSE 88; TEMP 36.4; O2SAT 99
[2020-08-25] MEDS: Ibuprofen 800 MG TABLET PO (20:33)
[2020-08-25] MEDS: OLANZapine 7.5 MG TABLET 15 MG PO (20:33)
[2020-08-26 08:00] VITALS: BP 133/87; PULSE 119; RESP 20; TEMP 36.7; O2SAT 96
[2020-08-26] MEDS: PHENobarbitaL 30 MG TABLET PO (09:15)
[2020-08-26] MEDS: FLUoxetine HCl 20 MG CAPSULE 40 MG PO (09:15)
[2020-08-26] MEDS: Folic Acid 1 MG TABLET PO (09:15)
[2020-08-26] MEDS: Thiamine HCL 100 MG TABLET PO (09:15)
[2020-08-26] MEDS: Acetaminophen 325 MG TABLET 975 MG PO ×2 (09:49→18:04)
[2020-08-26] MEDS: Ibuprofen 800 MG TABLET PO ×2 (12:15→20:07)
[2020-08-26 16:00] VITALS: BP 159/105; PULSE 107; RESP 18; TEMP 36.9; O2SAT 97
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
[2020-08-26] MEDS: OLANZapine 10 MG TABLET 20 MG PO (20:08)
[2020-08-27 08:00] VITALS: BP 140/67; PULSE 87; RESP 16; TEMP 36.6; O2SAT 99
[2020-08-27] MEDS: FLUoxetine HCl 20 MG CAPSULE 40 MG PO (08:04)
[2020-08-27] MEDS: PHENobarbitaL 30 MG TABLET PO (08:04)
[2020-08-27] MEDS: Thiamine HCL 100 MG TABLET PO (08:04)
[2020-08-27] MEDS: Folic Acid 1 MG TABLET PO (08:05)
[2020-08-27] MEDS: Ibuprofen 800 MG TABLET PO (08:13)
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
[2020-08-27 16:00] VITALS: BP 156/97; PULSE 87; RESP 18; TEMP 36.9; O2SAT 98
[2020-08-27] MEDS: Acetaminophen 325 MG TABLET 975 MG PO (19:51)
[2020-08-27 20:00] VITALS: BP 152/100; PULSE 115; RESP 18; TEMP 37.7; O2SAT 96
[2020-08-27] MEDS: OLANZapine 10 MG TABLET 20 MG PO (20:42)
[2020-08-28 07:00] VITALS: BMI 22.0
[2020-08-28 08:00] VITALS: BP 146/84; PULSE 87; RESP 16; TEMP 36.7; O2SAT 96
[2020-08-28] MEDS: FLUoxetine HCl 20 MG CAPSULE 40 MG PO (08:17)
[2020-08-28] MEDS: Folic Acid 1 MG TABLET PO (08:17)
[2020-08-28] MEDS: Thiamine HCL 100 MG TABLET PO (08:17)
[2020-08-28] MEDS: Acetaminophen 325 MG TABLET 975 MG PO ×2 (10:02→19:51)
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
[2020-08-28 16:52] VITALS: BP 146/84; PULSE 87; RESP 16; TEMP 36.7; O2SAT 96
[2020-08-28] MEDS: OLANZapine 10 MG TABLET 20 MG PO (19:51)
[2020-08-29 07:30] VITALS: BP 139/80; PULSE 89; RESP 16; TEMP 36.6; O2SAT 96
[2020-08-29] MEDS: Acetaminophen 325 MG TABLET 975 MG PO ×2 (07:59→20:49)
[2020-08-29] MEDS: Thiamine HCL 100 MG TABLET PO (08:00)
[2020-08-29] MEDS: Folic Acid 1 MG TABLET PO (08:00)
[2020-08-29] MEDS: FLUoxetine HCl 20 MG CAPSULE 40 MG PO (08:00)
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
[2020-08-29 18:00] VITALS: BP 142/84; PULSE 90; RESP 16; TEMP 36.3; O2SAT 97
[2020-08-29] MEDS: OLANZapine 10 MG TABLET 20 MG PO (19:54)
[2020-08-29] MEDS: traZODone HCL 50 MG TABLET PO (22:09)
[2020-08-30 08:25] VITALS: BP 118/59; PULSE 81; RESP 18; TEMP 36.8; O2SAT 98
[2020-08-30] MEDS: Thiamine HCL 100 MG TABLET PO (08:34)
[2020-08-30] MEDS: Folic Acid 1 MG TABLET PO (08:34)
[2020-08-30] MEDS: FLUoxetine HCl 20 MG CAPSULE 40 MG PO (08:34)
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
[2020-08-30 20:30] VITALS: BP 143/86; PULSE 108; TEMP 36.8; O2SAT 97
[2020-08-30] MEDS: OLANZapine 10 MG TABLET 20 MG PO (20:30)
[2020-08-30] MEDS: Ibuprofen 800 MG TABLET PO (22:08)
[2020-08-31 09:04] VITALS: BP 104/55; PULSE 80; RESP 16; TEMP 36.7; O2SAT 96
[2020-08-31] MEDS: Folic Acid 1 MG TABLET PO (09:11)
[2020-08-31] MEDS: FLUoxetine HCl 20 MG CAPSULE 40 MG PO (09:11)
[2020-08-31] MEDS: Thiamine HCL 100 MG TABLET PO (09:11)
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
[2020-08-31 19:51] VITALS: BP 131/80; PULSE 117; RESP 18; TEMP 37.1; O2SAT 95
[2020-08-31] MEDS: OLANZapine 10 MG TABLET 20 MG PO (20:10)
[2020-09-01 08:37] VITALS: BP 129/69; PULSE 75; RESP 16
[2020-09-01] MEDS: FLUoxetine HCl 20 MG CAPSULE 40 MG PO (08:38)
[2020-09-01] MEDS: Folic Acid 1 MG TABLET PO (08:38)
[2020-09-01] MEDS: Thiamine HCL 100 MG TABLET PO (08:38)
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
[2020-09-01 18:00] VITALS: BP 151/89; PULSE 107; RESP 18; TEMP 37.2; O2SAT 95
[2020-09-01] MEDS: OLANZapine 10 MG TABLET 20 MG PO (21:09)
[2020-09-02] MEDS: Thiamine HCL 100 MG TABLET PO (08:08)
[2020-09-02] MEDS: FLUoxetine HCl 20 MG CAPSULE 40 MG PO (08:08)
[2020-09-02] MEDS: Folic Acid 1 MG TABLET PO (08:08)
[2020-09-02 08:40] VITALS: BP 138/88; PULSE 94; RESP 16; TEMP 36.7; O2SAT 97
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
[2020-09-02 17:42] VITALS: BP 130/80; PULSE 90; RESP 16; TEMP 36.7; O2SAT 98
[2020-09-02] MEDS: OLANZapine 10 MG TABLET 20 MG PO (20:01)
[2020-09-02] MEDS: Ibuprofen 800 MG TABLET PO (20:01)
[2020-09-02 22:00] VITALS: BP 137/87; PULSE 120; TEMP 36.6; O2SAT 96
[2020-09-03 06:00] VITALS: BP 111/88; PULSE 85; TEMP 36.4; O2SAT 98
[2020-09-03] MEDS: Folic Acid 1 MG TABLET PO (08:09)
[2020-09-03] MEDS: Thiamine HCL 100 MG TABLET PO (08:09)
[2020-09-03] MEDS: FLUoxetine HCl 20 MG CAPSULE 40 MG PO (08:09)
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
[2020-09-03] MEDS: Acetaminophen 325 MG TABLET 975 MG PO (20:30)
[2020-09-03] MEDS: OLANZapine 10 MG TABLET 20 MG PO (20:30)
[2020-09-03 20:36] VITALS: BP 137/85; PULSE 101; TEMP 36.9; O2SAT 98
[2020-09-04 07:00] VITALS: BMI 22.0
[2020-09-04] MEDS: FLUoxetine HCl 20 MG CAPSULE 40 MG PO (08:38)
[2020-09-04] MEDS: Thiamine HCL 100 MG TABLET PO (08:38)
[2020-09-04] MEDS: Folic Acid 1 MG TABLET PO (08:38)
[2020-09-04 08:56] VITALS: BP 127/94; PULSE 85; RESP 16; TEMP 36.4; O2SAT 100
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
[2020-09-04] MEDS: Acetaminophen 325 MG TABLET 975 MG PO ×2 (16:39→22:32)
[2020-09-04 18:00] VITALS: BP 144/88; PULSE 110; RESP 16; TEMP 37; O2SAT 98
[2020-09-04] MEDS: OLANZapine 10 MG TABLET 20 MG PO (20:03)
[2020-09-05 06:00] VITALS: BP 126/68; PULSE 81; RESP 16; TEMP 36.7; O2SAT 94
[2020-09-05] MEDS: FLUoxetine HCl 20 MG CAPSULE 40 MG PO (08:40)
[2020-09-05] MEDS: Folic Acid 1 MG TABLET PO (08:40)
[2020-09-05] MEDS: Thiamine HCL 100 MG TABLET PO (08:40)
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
[2020-09-05] MEDS: Acetaminophen 325 MG TABLET 975 MG PO (14:35)
[2020-09-05 18:00] VITALS: BP 139/85; PULSE 108; RESP 18; TEMP 36.7; O2SAT 98
[2020-09-05] MEDS: OLANZapine 10 MG TABLET 20 MG PO (20:53)
[2020-09-05] MEDS: Ibuprofen 800 MG TABLET PO (22:16)
[2020-09-06] MEDS: FLUoxetine HCl 20 MG CAPSULE 40 MG PO (08:58)
[2020-09-06] MEDS: Thiamine HCL 100 MG TABLET PO (08:58)
[2020-09-06] MEDS: Folic Acid 1 MG TABLET PO (08:58)
[2020-09-06 09:02] VITALS: BP 136/92; PULSE 98; RESP 18; TEMP 36.9; O2SAT 96
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
[2020-09-06] MEDS: Acetaminophen 325 MG TABLET 975 MG PO (14:56)
[2020-09-06 17:09] VITALS: BP 123/80; PULSE 94; RESP 16; TEMP 37.2; O2SAT 97
[2020-09-06] MEDS: OLANZapine 10 MG TABLET 20 MG PO (20:00)
[2020-09-07 08:21] VITALS: BP 119/66; PULSE 74; RESP 16; TEMP 37.2; O2SAT 94
[2020-09-07] MEDS: Folic Acid 1 MG TABLET PO (08:52)
[2020-09-07] MEDS: FLUoxetine HCl 20 MG CAPSULE 40 MG PO (08:52)
[2020-09-07] MEDS: Thiamine HCL 100 MG TABLET PO (08:52)
[2020-09-07] MEDS: Acetaminophen 325 MG TABLET 975 MG PO ×2 (15:39→21:14)
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
[2020-09-07 18:00] VITALS: BP 123/71; PULSE 112; RESP 16; TEMP 36.9; O2SAT 97
[2020-09-07] MEDS: OLANZapine 10 MG TABLET 20 MG PO (20:24)
[2020-09-08] MEDS: Acetaminophen 325 MG TABLET 975 MG PO ×3 (07:59→22:53)
[2020-09-08 08:11] VITALS: BP 145/81; PULSE 106; RESP 17; TEMP 36.4; O2SAT 98
[2020-09-08] MEDS: FLUoxetine HCl 20 MG CAPSULE 40 MG PO (08:20)
[2020-09-08] MEDS: Folic Acid 1 MG TABLET PO (08:20)
[2020-09-08] MEDS: Thiamine HCL 100 MG TABLET PO (08:20)
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
[2020-09-08] MEDS: Ibuprofen 800 MG TABLET PO (20:18)
[2020-09-08] MEDS: Paliperidone ER 6 MG TAB.ER.24 PO (20:46)
[2020-09-08 20:47] VITALS: BP 140/88; PULSE 113; TEMP 36.8
[2020-09-08] MEDS: hydrOXYzine HCL 50 MG TABLET PO (23:33)
[2020-09-09] MEDS: traZODone HCL 50 MG TABLET PO (01:39)
[2020-09-09 09:08] VITALS: BP 138/97; PULSE 99; RESP 17; TEMP 36.8; O2SAT 97
[2020-09-09] MEDS: Folic Acid 1 MG TABLET PO (09:21)
[2020-09-09] MEDS: Thiamine HCL 100 MG TABLET PO (09:21)
[2020-09-09] MEDS: FLUoxetine HCl 20 MG CAPSULE 40 MG PO (09:21)
[2020-09-09] MEDS: Ibuprofen 800 MG TABLET PO ×2 (10:06→20:28)
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
[2020-09-09] MEDS: Acetaminophen 325 MG TABLET 975 MG PO (16:03)
[2020-09-09 18:00] VITALS: BP 144/92; PULSE 124; RESP 16; TEMP 36.6; O2SAT 97
[2020-09-09] MEDS: Paliperidone ER 6 MG TAB.ER.24 PO (20:28)
[2020-09-09] MEDS: hydrOXYzine HCL 50 MG TABLET PO (22:52)
[2020-09-10] MEDS: Acetaminophen 325 MG TABLET 975 MG PO ×2 (00:42→19:01)
[2020-09-10] MEDS: Ibuprofen 800 MG TABLET PO ×2 (04:06→14:13)
[2020-09-10 06:00] VITALS: BP 130/67; PULSE 108; RESP 16; TEMP 36.2; O2SAT 97
[2020-09-10] MEDS: Fluticasone Propionate Nasal 16 GM SPRAY 1 SPRAY NOSTRIL-B (07:58)
[2020-09-10] MEDS: Folic Acid 1 MG TABLET PO (07:59)
[2020-09-10] MEDS: FLUoxetine HCl 20 MG CAPSULE 40 MG PO (07:59)
[2020-09-10] MEDS: Thiamine HCL 100 MG TABLET PO (07:59)
[2020-09-10] MEDS: Paliperidone Palmitate 234 MG/1.5 ML SYRINGE IM (10:15)
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
[2020-09-10 18:00] VITALS: BP 146/86; PULSE 86; RESP 18; TEMP 37.1; O2SAT 96
[2020-09-10] MEDS: hydrOXYzine HCL 50 MG TABLET PO (20:41)
[2020-09-11] MEDS: Fluticasone Propionate Nasal 16 GM SPRAY 1 SPRAY NOSTRIL-B ×2 (02:05→07:45)
[2020-09-11] MEDS: Ibuprofen 800 MG TABLET PO ×2 (02:05→12:34)
[2020-09-11 06:00] VITALS: BP 131/76; PULSE 114; RESP 20; TEMP 36.6; O2SAT 97
[2020-09-11] MEDS: FLUoxetine HCl 20 MG CAPSULE 40 MG PO (07:45)
[2020-09-11] MEDS: Thiamine HCL 100 MG TABLET PO (07:45)
[2020-09-11] MEDS: Folic Acid 1 MG TABLET PO (07:46)
[2020-09-11] MEDS: Acetaminophen 325 MG TABLET 975 MG PO (09:14)
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
--- NOTE | 2020-09-11 13:44 | PC.NURSE ---
Patient is alert, fully oriented, pleasant and cooperative with discharge process. Patient denies ideation, plan or intent to harm self or others. He agrees to homecare to administer his IM medications. Patient was educated about prescribed medications, coping skills, crisis management and denies questions. He continues to complain of right ankle pin 2-4 out of ten and agrees to see orthopedist next week for follow up appointment regarding fracture. He otherwise denies physical complaint.
== END 2020-09-11 14:15 | disposition home or self-care (01) | DRG 885 ==
LOC: HO.ED 08-21 04:26 → HO.PADLT16 08-21 10:51
PROVIDERS: Nurse Practitioner Family; Physician Assistant Medical; Psychiatry & Neurology Psychiatry; Admitting Provider Psychiatry & Neurology Psychiatry; Emergency Provider Emergency Medicine; Visit Provider Psychiatry & Neurology Psychiatry
DX: F23 Brief psychotic disorder (principal); R45.851 Suicidal ideations; F10.239 Alcohol dependence with withdrawal, unspecified; Z20.822 Contact with and (suspected) exposure to COVID-19; W13.0XXA Fall from, out of or through balcony, initial encounter; S82.64XA Nondisplaced fracture of lateral malleolus of right fibula, initial encounter for closed fracture; D72.829 Elevated white blood cell count, unspecified; R00.0 Tachycardia, unspecified; Y93.9 Activity, unspecified; Y92.9 Unspecified place or not applicable; Y99.9 Unspecified external cause status; F17.210 Nicotine dependence, cigarettes, uncomplicated; Z71.6 Tobacco abuse counseling; Z79.51 Long term (current) use of inhaled steroids; Z79.899 Other long term (current) drug therapy
CPT/HCPCS: 36415; 71045; 73610; 80053; 80307; 81003; 82077; 83605; 83735; 85025; 85610; 87040; 87635; 93005; 97162; 99285; J2426; J2560

== ENCOUNTER 2022-08-30 06:29 | Inpatient (IN) | payer MEDICARE, SELFPAY ==
--- NOTE | ~2022-08-30 | XR_ITS ---
EXAMINATION: XR WRIST, LEFT XR HAND, LEFT CLINICAL INFORMATION: Pain and injury. COMPARISON: None available. TECHNIQUE: PA, lateral, and oblique views of the left wrist and PA, lateral, and oblique views of the left hand FINDINGS: LEFT WRIST: The bones and soft tissues are normal. No fracture. Alignment is anatomic. Joint spaces are maintained. No erosions or soft tissue calcifications. LEFT HAND: There is a nondisplaced boxer's fracture fifth metacarpal with mild volar angulation of distal fragment. Rest of the left hand appears unremarkable with joint spaces preserved. The soft tissues are normal.. XR/XR hand wrist LT IMPRESSION: Nondisplaced fracture distal fifth metacarpal with mild dorsal angulation of distal fragment. No other fracture seen. Unremarkable left wrist exam.
[2022-08-30 06:36] VITALS: BP 142/84; PULSE 97; RESP 12; TEMP 36.6; O2SAT 99; BMI 26.6
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
[2022-08-30 08:26] LABS: MANUAL DIFF FLAG NO
[2022-08-30 08:30] LABS: Basophils Percent Auto 0.2 % (0-2); Eosinophils Percent Auto 0.1 % (0-4); Hemoglobin 16.3 g/dl (14.0-18.0); Imm Gran Abs Auto 0.03 X10*3/uL (0.00-0.03); Imm Gran Pct Auto 0.3 % (0.0-0.4); Lymphocytes Absolute Auto 1.1 X10*3/uL (1.2-4.9); Lymphocytes Percent Auto 10.6 % (20-40); Mean Corpuscular HGB Conc 35.4 g/dl (31.0-36.0); Mean Corpuscular Hemoglobin 32.9 pg (27.0-33.0); Mean Corpuscular Volume 92.7 fL (80.0-98.0); Mean Platelet Volume 9.5 fL (9.4-12.4); Monocytes Absolute Auto 0.4 X10*3/uL (0.1-1.2); Monocytes Percent Auto 4.2 % (2-11); Neutrophils Absolute Auto 8.9 x10*3/uL (2.0-8.3); Neutrophils Percent Auto 84.6 % (45-73); Platelet Count 259 X10*3/uL (160-400); Red Blood Count 4.96 X10*6/uL (4.60-5.80); Red Cell Distribution Width 12.5 % (11.0-16.0); White Blood Count 10.5 X10*3/uL (4.8-10.8)
[2022-08-30 08:40] VITALS: BP 120/78; PULSE 61; RESP 18; TEMP 36.8; O2SAT 99
[2022-08-30 08:43] LABS: Alanine Aminotransferase 26 U/L (0-40); Albumin Level 4.7 g/dL (3.5-5.0); Alkaline Phosphatase 133 U/L (39-117); Anion Gap 15 (12-20); Aspartate Amino Transferase 19 U/L (5-37); Blood Urea Nitrogen 7 mg/dL (9-16); Calcium 10.8 mg/dL (8.4-10.2); Carbon Dioxide 20 mmol/L (22-29); Chloride 111 mmol/L (96-108); Creatinine Clr Calc Pharmacy 125.3; Estimated Glomerular Filt Rate > 60; Ethanol < 10 mg/dL; Glucose Random 118 mg/dL (60-115); Potassium 4.1 mmol/L (3.3-5.1); Sodium 142 mmol/L (135-145); Total Protein 7.5 g/dL (6.5-8.0)
--- NOTE | 2022-08-30 09:01 | MHC.EDTECH ---
this tech with the help of two other techs and a student PA, applied a left ulnar gutter splint. pt tolerated well. provider aware
--- NOTE | 2022-08-30 09:20 | PC.NURSE ---
pt aox4, reporting vague feelings of thoughts of fragments and wanting to talk to someone to get medication . Denies SI/HI. per provider, awaiting lab results for medical clearance to go to pod
--- NOTE | 2022-08-30 09:49 | PC.NURSE ---
pt resting pending CARE team consult
--- NOTE | 2022-08-30 10:17 | PHA.MEDREC ---
Pharmacy Consult ? Medication Reconciliation Pharmacy has completed the medication reconciliation. spoke with patient.
--- NOTE | 2022-08-30 10:44 | MHC.CARE ---
Pt pending CARE team consult, waiting for UTOX to be completed for full medical clearance.
[2022-08-30 11:24] VITALS: BP 119/73; PULSE 83; RESP 18; O2SAT 98
--- NOTE | 2022-08-30 11:33 | PC.NURSE ---
pt urine sent to lab, pending CARE team eval
[2022-08-30 11:36] LABS: Appearance Urine Clear; Color Urine Yellow; Glucose Urine UA Negative (Negative); Leukocyte Esterase Urine Trace (Negative); Nitrite Urine Negative (Negative); Specific Gravity - Urine >= 1.030 (1.005-1.025); UMIC TRIGGER UACC YES; Urine Blood Negative (Negative); Urine Ketones >=160 mg/dL (Negative); Urine Protein Trace mg/dL (Neg-Trace)
[2022-08-30 11:41] LABS: Bacteria Urine None Seen (None Seen); Hyaline Casts Urine 0-2 /LPF (0-2); RBC Urine 0-2 /HPF (0-2); Squamous Epithelial Cell Urine 0-2 /HPF (0-2); WBC Urine 0-5 /HPF (0-5)
[2022-08-30 11:44] LABS: Amphetamine Screen Urine Not Detected (Not Detect); Barbiturates, Urine Not Detected (Not Detect); Benzodiazepines Screen Urine Not Detected (Not Detect); Cannabinoid Screen Urine POSITIVE (Not Detect); Cocaine Screen Urine Not Detected (Not Detect); Fentanyl, urine Not Detected (Not Detect); Opiate Screen Urine Not Detected (Not Detect); Phencyclidine Screen Urine Not Detected (Not Detect)
[2022-08-30 14:22] VITALS: BP 147/80; PULSE 78; RESP 18; TEMP 36.1; O2SAT 100
--- NOTE | 2022-08-30 15:22 | MHC.CARE ---
Pt seen by CARE team, patient meets inpatient level of care and is a bedsearch.
--- NOTE | 2022-08-30 16:33 | MHC.CARE ---
CARE team clinician called [facility], they report its handled by [facility] who reported its [facility] and transferred clinician to [facility]. Clinical was presented and she reported they have 24 hours to call and provided auth #. She reports personal care attendant who will be calling is Rebeca Quinonez @ [phone] ext [phone]
--- NOTE | 2022-08-30 17:10 | PC.NURSE ---
S Gave report to chargeback analyst Gia on M3. They will be calling back regarding adjustments to safety protocols from floor around having miriam wrap around splint.
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
[2022-08-31] MEDS: traZODone HCL 50 MG TABLET PO ×2 (02:43→21:12)
[2022-08-31] MEDS: Acetaminophen 325 MG TABLET 650 MG PO ×3 (02:43→21:11)
[2022-08-31 08:42] VITALS: BP 135/96; PULSE 84; TEMP 36.8; O2SAT 98
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
[2022-08-31 09:48] LABS: Alanine Aminotransferase 23 U/L (0-40); Albumin Level 4.5 g/dL (3.5-5.0); Alkaline Phosphatase 135 U/L (39-117); Anion Gap 13 (12-20); Aspartate Amino Transferase 21 U/L (5-37); Bilirubin Total 1.7 mg/dL (0.0-1.0); Blood Urea Nitrogen 8 mg/dL (9-16); Calcium 10.7 mg/dL (8.4-10.2); Carbon Dioxide 22 mmol/L (22-29); Chloride 108 mmol/L (96-108); Cholesterol 137 mg/dL; Creatinine Clr Calc Pharmacy 125.3; Estimated Glomerular Filt Rate > 60; Glucose Fasting 112 mg/dL (60-99); HDL Cholesterol 43 mg/dL; LDL Cholesterol Calculated 79 mg/dl; Potassium 4.3 mmol/L (3.3-5.1); Sodium 139 mmol/L (135-145); Total Protein 7.5 g/dL (6.5-8.0); Triglycerides 77 mg/dL
--- NOTE | 2022-08-31 10:38 | PC.NURSE ---
pt denied smoking cigarettes, declined nicotine replacement at this time
[2022-08-31] MEDS: Ibuprofen 800 MG TABLET PO (12:10)
[2022-08-31] MEDS: Paliperidone ER 3 MG TAB.ER.24 PO ×2 (12:10→21:12)
[2022-08-31] MEDS: hydrOXYzine HCL 25 MG TABLET PO (12:10)
[2022-08-31 21:15] VITALS: BP 140/80; PULSE 100; TEMP 36.3; O2SAT 95
[2022-09-01 08:28] VITALS: BP 116/77; PULSE 74; RESP 20; TEMP 36.8; O2SAT 99
[2022-09-01] MEDS: Paliperidone ER 3 MG TAB.ER.24 PO ×2 (08:37→21:14)
[2022-09-01] MEDS: Ibuprofen 800 MG TABLET PO (08:49)
--- NOTE | 2022-09-01 15:20 | HO.PSYCHPN ---
Subjective Subjective Date of Service: 09/01/22 Reason For Visit: psychosis Interim History: no change in presentation from yesterday. does not appreciate any change with restart of meds. doing OK. per staff, remains on 1:1 due to LAN bandage. taking invega PO. slept well. Mental Status Exam Mental Status Exam Narrative: calm and cooperative. appears to be wearing hospital marine, under blanket. no PMA, possibly PMR. cooperative with interview. speech soft, slowed, sparse, flattened, increased in latency. thoughts linear and logical. affect blunted. mood doing OK. no SI/SIBI/HI/AVH expressed. Diagnostics Vital Signs (24Hr): Vital Signs - 24 hr 08/31/22 21:15 09/01/22 08:28 Temperature 97.3 F 98.3 F Pulse Rate 100 74 Respiratory Rate 20 Blood Pressure 140/80 H 116/77 Pulse Oximetry 95 99 Oxygen Delivery Method Room Air Room Air BMI result Body Mass Index 26.6 Labs 08/30/22 08:23 08/31/22 09:08 Labs: Laboratory Results - last 48 hr 08/31/22 09:08 Sodium 139 Potassium 4.3 Chloride 108 Carbon Dioxide 22 Anion Gap 13 BUN 8 L Creatinine 0.70 Estim Creat Clear Calc 125.3 Estimated GFR > 60 Fasting Glucose 112 H Calcium 10.7 H Total Bilirubin 1.7 H AST 21 ALT 23 Alkaline Phosphatase 135 H Total Protein 7.5 Albumin 4.5 Triglycerides 77 Cholesterol 137 LDL Cholesterol, Calc 79 HDL Cholesterol 43 Imaging Radiology Impressions: ITS Impressions Hand/Wrist X-Ray 08/30/22 06:50 IMPRESSION: Nondisplaced fracture distal fifth metacarpal with mild dorsal angulation of distal fragment. No other fracture seen. Unremarkable left wrist exam. Medications Medications Current Medications Acetaminophen (Acetaminophen 325 Mg Tablet) 650 mg PO Q6H PRN PRN Reason: Headache/Pain Mild Scale (1-3) Last Admin: 08/31/22 21:11 Dose: 650 mg Al Hydroxide/Mg Hydroxide (Magnesium Hydrox/Alum Hydrox 30 Ml Oral.Susp) 30 ml PO Q6H PRN PRN Reason: Heartburn/Nausea Hydroxyzine HCl (Hydroxyzine Hcl 25 Mg Tablet) 25 mg PO Q6H PRN PRN Reason: Anxiety Last Admin: 08/31/22 12:10 Dose: 25 mg Ibuprofen (Ibuprofen 800 Mg Tablet) 800 mg PO Q8H PRN PRN Reason: Pain, Moderate(Pain Scale 4-6) Last Admin: 09/01/22 08:49 Dose: 800 mg Magnesium Hydroxide (Milk Of Magnesia 30 Ml Oral.Susp) 30 ml PO DAILY PRN PRN Reason: Constipation Paliperidone (Paliperidone Er 3 Mg Tab.Er.24) 3 mg PO BID KIANA Last Admin: 09/01/22 08:37 Dose: 3 mg Trazodone HCl (Trazodone Hcl 50 Mg Tablet) 50 mg PO BEDTIME MRX1 PRN PRN Reason: Insomnia Last Admin: 08/31/22 21:12 Dose: 50 mg Allergies Allergies Allergy/AdvReac Type Severity Reaction Status Date / Time No Known Allergies Allergy Verified 08/30/22 06:35 Assessment & Plan Assessment & Plan (1) Schizophrenia, paranoid type: Status: Acute Code(s): F20.0 - Paranoid schizophrenia (2) Fracture of fifth metacarpal bone: Status: Acute Code(s): S62.308A - Unspecified fracture of other metacarpal bone, initial encounter for closed fracture Plan 08/31: start invega 3 mg BID. 09/01: no change. continue current mgmt. Reason for continued inpatient stay Substantial Risk for: harm to self and inability to function Time Spent With Patient Time: Total time managing care of this patient today __25__ minutes.
[2022-09-01 21:00] VITALS: BP 119/60; PULSE 55; TEMP 36.5; O2SAT 95
[2022-09-01] MEDS: traZODone HCL 50 MG TABLET PO (21:14)
[2022-09-01] MEDS: Acetaminophen 325 MG TABLET 650 MG PO (21:14)
[2022-09-02 07:00] VITALS: BMI 25.0
[2022-09-02 08:23] VITALS: BP 127/81; PULSE 105; TEMP 36.2; O2SAT 98
[2022-09-02] MEDS: Paliperidone ER 3 MG TAB.ER.24 PO (08:24)
[2022-09-02] MEDS: Ibuprofen 800 MG TABLET PO ×2 (10:44→21:27)
--- NOTE | 2022-09-02 15:29 | HO.PSYCHPN ---
Subjective Subjective Date of Service: 09/02/22 Reason For Visit: psychosis Interim History: no change in presentation. amenable to increase invega to 3/6 from 3 BID. pt was encouraged to monitor for akathisia and let us know if increased dose caused increased restlessness at HS. per staff, cooperative, guarded. restless at NOC due to pain and a lot on my mind. Mental Status Exam Mental Status Exam Narrative: calm and cooperative. appears to be wearing hospital marine, under blanket. no PMA, possibly PMR. cooperative with interview. speech very soft, slowed, sparse, flattened, increased in latency. thoughts linear and logical. affect blunted. mood OK. no SI/SIBI/HI/AVH expressed. Diagnostics Vital Signs (24Hr): Vital Signs - 24 hr 09/01/22 21:00 09/02/22 08:23 Temperature 97.7 F 97.1 F Pulse Rate 55 105 H Blood Pressure 119/60 127/81 Pulse Oximetry 95 98 Oxygen Delivery Method Room Air Room Air BMI result Body Mass Index 26.6 Labs 08/30/22 08:23 08/31/22 09:08 Imaging Radiology Impressions: ITS Impressions Hand/Wrist X-Ray 08/30/22 06:50 IMPRESSION: Nondisplaced fracture distal fifth metacarpal with mild dorsal angulation of distal fragment. No other fracture seen. Unremarkable left wrist exam. Medications Medications Current Medications Acetaminophen (Acetaminophen 325 Mg Tablet) 650 mg PO Q6H PRN PRN Reason: Headache/Pain Mild Scale (1-3) Last Admin: 09/01/22 21:14 Dose: 650 mg Al Hydroxide/Mg Hydroxide (Magnesium Hydrox/Alum Hydrox 30 Ml Oral.Susp) 30 ml PO Q6H PRN PRN Reason: Heartburn/Nausea Hydroxyzine HCl (Hydroxyzine Hcl 25 Mg Tablet) 25 mg PO Q6H PRN PRN Reason: Anxiety Last Admin: 08/31/22 12:10 Dose: 25 mg Ibuprofen (Ibuprofen 800 Mg Tablet) 800 mg PO Q8H PRN PRN Reason: Pain, Moderate(Pain Scale 4-6) Last Admin: 09/02/22 10:44 Dose: 800 mg Magnesium Hydroxide (Milk Of Magnesia 30 Ml Oral.Susp) 30 ml PO DAILY PRN PRN Reason: Constipation Paliperidone (Paliperidone Er 3 Mg Tab.Er.24) 3 mg PO DAILY KIANA Paliperidone (Paliperidone Er 6 Mg Tab.Er.24) 6 mg PO BEDTIME KIANA Trazodone HCl (Trazodone Hcl 50 Mg Tablet) 50 mg PO BEDTIME MRX1 PRN PRN Reason: Insomnia Last Admin: 09/01/22 21:14 Dose: 50 mg Allergies Allergies Allergy/AdvReac Type Severity Reaction Status Date / Time No Known Allergies Allergy Verified 08/30/22 06:35 Assessment & Plan Assessment & Plan (1) Schizophrenia, paranoid type: Status: Acute Code(s): F20.0 - Paranoid schizophrenia (2) Fracture of fifth metacarpal bone: Status: Acute Code(s): S62.308A - Unspecified fracture of other metacarpal bone, initial encounter for closed fracture Plan 08/31: start invega 3 mg BID. 09/01: no change. continue current mgmt. 09/02: increase invega to 3/6. no change in presentation. Reason for continued inpatient stay Substantial Risk for: inability to function and rapid decompensation Time Spent With Patient Time: Total time managing care of this patient today _25___ minutes.
[2022-09-02] MEDS: Acetaminophen 325 MG TABLET 650 MG PO (16:46)
[2022-09-02] MEDS: Paliperidone ER 6 MG TAB.ER.24 PO (21:26)
[2022-09-02] MEDS: traZODone HCL 50 MG TABLET PO (21:26)
[2022-09-02] MEDS: hydrOXYzine HCL 25 MG TABLET PO (21:26)
[2022-09-02 22:59] VITALS: BP 124/72; PULSE 74; RESP 18; TEMP 36.6; O2SAT 97
[2022-09-03 06:00] VITALS: BP 111/80; PULSE 79; RESP 16; TEMP 36.7; O2SAT 99
[2022-09-03] MEDS: Ibuprofen 800 MG TABLET PO ×2 (09:05→20:56)
[2022-09-03] MEDS: Paliperidone ER 3 MG TAB.ER.24 PO (09:06)
--- NOTE | 2022-09-03 16:12 | HO.PSYCHPN ---
Subjective Subjective Date of Service: 09/03/22 Reason For Visit: psychosis Subjective Notes: Conditional Voluntary Interim History: Pt reports hearing different voices while at home. He states he continues to hear them here but less. He reports he feels calmer. He reports sleeping better. He denies SI/HI. He is taking medications as prescribed and agrees to continue taking them. Medication Compliance: Yes Side effects from medications: No Attending Groups: No Review of Systems Review of Systems Constitutional: No Fever, No Chills, No Night Sweats, No Fatigue, No Malaise ENT/Mouth: No Hearing loss, No Ear Pain, No Nasal Congestion, No sore throat, No Rhinorrhea, No Swallowing Difficulty Eyes: No Eye Pain, No Swelling, No Redness, No Vision Changes Cardiovascular: No Chest Pain, No SOB, No Edema, No Palpitations Respiratory: No Cough, No Sputum, No Dyspnea Gastrointestinal: No Nausea, No Vomiting, No Diarrhea, No Constipation, No Abdominal pain Genitourinary: No Dysuria, No Hematuria, No Urinary Incontinence/retention, No Flank Pain Musculoskeletal: + joint pain, No Myalgias, + Joint Swelling Skin: No Skin Lesions, No rash Neuro: No Weakness, No Numbness, No Headache Psych: No Anxiety/Panic, + Depression, No SI/HI/AH/VH, + Social Issues Yes all other systems are reviewed and are negative Constitutional: Reports as per [facility] Mental Status Exam Mental Status Exam Narrative: calm and cooperative. appears to be wearing hospital marine, under blanket. no PMA, possibly PMR. cooperative with interview. speech very soft, slowed, sparse, flattened, increased in latency. thoughts linear and logical. affect blunted. mood OK. no SI/SIBI/HI/AVH expressed. Diagnostics Vital Signs (24Hr): Vital Signs - 24 hr 09/02/22 22:59 09/03/22 06:00 Temperature 98 F 98.1 F Pulse Rate 74 79 Respiratory Rate 18 16 Blood Pressure 124/72 111/80 Pulse Oximetry 97 99 Oxygen Delivery Method Room Air Room Air BMI result Body Mass Index 25.0 Labs 08/30/22 08:23 08/31/22 09:08 Imaging Radiology Impressions: ITS Impressions Hand/Wrist X-Ray 08/30/22 06:50 IMPRESSION: Nondisplaced fracture distal fifth metacarpal with mild dorsal angulation of distal fragment. No other fracture seen. Unremarkable left wrist exam. Medications Medications Current Medications Acetaminophen (Acetaminophen 325 Mg Tablet) 650 mg PO Q6H PRN PRN Reason: Headache/Pain Mild Scale (1-3) Last Admin: 09/02/22 16:46 Dose: 650 mg Al Hydroxide/Mg Hydroxide (Magnesium Hydrox/Alum Hydrox 30 Ml Oral.Susp) 30 ml PO Q6H PRN PRN Reason: Heartburn/Nausea Hydroxyzine HCl (Hydroxyzine Hcl 25 Mg Tablet) 25 mg PO Q6H PRN PRN Reason: Anxiety Last Admin: 09/02/22 21:26 Dose: 25 mg Ibuprofen (Ibuprofen 800 Mg Tablet) 800 mg PO Q8H PRN PRN Reason: Pain, Moderate(Pain Scale 4-6) Last Admin: 09/03/22 09:05 Dose: 800 mg Magnesium Hydroxide (Milk Of Magnesia 30 Ml Oral.Susp) 30 ml PO DAILY PRN PRN Reason: Constipation Paliperidone (Paliperidone Er 3 Mg Tab.Er.24) 3 mg PO DAILY KIANA Last Admin: 09/03/22 09:06 Dose: 3 mg Paliperidone (Paliperidone Er 6 Mg Tab.Er.24) 6 mg PO BEDTIME KIANA Last Admin: 09/02/22 21:26 Dose: 6 mg Trazodone HCl (Trazodone Hcl 50 Mg Tablet) 50 mg PO BEDTIME PRN PRN Reason: Insomnia Allergies Allergies Allergy/AdvReac Type Severity Reaction Status Date / Time No Known Allergies Allergy Verified 08/30/22 06:35 Assessment & Plan Assessment & Plan (1) Schizophrenia, paranoid type: Status: Acute Code(s): F20.0 - Paranoid schizophrenia (2) Fracture of fifth metacarpal bone: Status: Acute Code(s): S62.308A - Unspecified fracture of other metacarpal bone, initial encounter for closed fracture Plan 08/31: start invega 3 mg BID. 09/01: no change. continue current mgmt. 09/02: increase invega to 3/6. no change in presentation. 09/03 continue current medications. some improvement in AH per pt. continues internally preoccupied with some paranoid ideas. Reason for continued inpatient stay Substantial Risk for: inability to function Time Spent With Patient Time: Total time managing care of this patient today ____ minutes.
[2022-09-03 20:45] VITALS: BP 137/90; PULSE 107; TEMP 36.7; O2SAT 96
[2022-09-03] MEDS: Paliperidone ER 6 MG TAB.ER.24 PO (20:49)
[2022-09-03] MEDS: traZODone HCL 50 MG TABLET PO (20:49)
[2022-09-04] MEDS: traZODone HCL 50 MG TABLET PO ×2 (00:21→20:40)
[2022-09-04] MEDS: hydrOXYzine HCL 25 MG TABLET PO ×2 (00:22→20:41)
[2022-09-04] MEDS: Paliperidone ER 3 MG TAB.ER.24 PO (09:40)
[2022-09-04 10:08] VITALS: BP 114/73; PULSE 107; RESP 18; TEMP 36.6; O2SAT 99
[2022-09-04] MEDS: Ibuprofen 800 MG TABLET PO ×2 (11:06→20:40)
--- NOTE | 2022-09-04 14:27 | HO.PSYCHPN ---
Subjective Subjective Date of Service: 09/04/22 Reason For Visit: psychosis Subjective Notes: Conditional Voluntary Medical Problems Affecting Mental Status: No Interim History: met with patient. Discussed with Nursing. Chart reviewed. On one-to-one observation due to hand splint with Azar wrap. No management issues. With video game script writer reports feeling that things are improving and that him releasing anger prior to admission has been helpful. Feeling safe in the hospital and supported by staff. Happy with current treatment and medication regimen. Reports at times hearing indistinct sounds but does have difficulty elaborating on details. No evidence of SI HI or agitation. Medication Compliance: Yes Side effects from medications: No Attending Groups: Yes Review of Systems Acute medical concerns: No Review of Systems Review of Systems No acute changes or needs Mental Status Exam Mental Status Exam Narrative: calm and cooperative. hospital elothing, Hand splint. no PMA, possibly PMR. cooperative with interview. speech very soft, slowed, sparse, flattened, increased in latency. thoughts linear and logical. affect blunted. mood OK. no SI/SIBI/HI/AVH expressed. insight and judgment fair Diagnostics Vital Signs (24Hr): Vital Signs - 24 hr 09/03/22 20:45 09/04/22 10:08 Temperature 98.0 F 97.9 F Pulse Rate 107 H 107 H Respiratory Rate 18 Blood Pressure 137/90 H 114/73 Pulse Oximetry 96 99 Oxygen Delivery Method Room Air Room Air BMI result Body Mass Index 25.0 Labs 08/30/22 08:23 08/31/22 09:08 Imaging Radiology Impressions: ITS Impressions Hand/Wrist X-Ray 08/30/22 06:50 IMPRESSION: Nondisplaced fracture distal fifth metacarpal with mild dorsal angulation of distal fragment. No other fracture seen. Unremarkable left wrist exam. Medications Medications Current Medications Acetaminophen (Acetaminophen 325 Mg Tablet) 650 mg PO Q6H PRN PRN Reason: Headache/Pain Mild Scale (1-3) Last Admin: 09/02/22 16:46 Dose: 650 mg Al Hydroxide/Mg Hydroxide (Magnesium Hydrox/Alum Hydrox 30 Ml Oral.Susp) 30 ml PO Q6H PRN PRN Reason: Heartburn/Nausea Hydroxyzine HCl (Hydroxyzine Hcl 25 Mg Tablet) 25 mg PO Q6H PRN PRN Reason: Anxiety Last Admin: 09/04/22 00:22 Dose: 25 mg Ibuprofen (Ibuprofen 800 Mg Tablet) 800 mg PO Q8H PRN PRN Reason: Pain, Moderate(Pain Scale 4-6) Last Admin: 09/04/22 11:06 Dose: 800 mg Magnesium Hydroxide (Milk Of Magnesia 30 Ml Oral.Susp) 30 ml PO DAILY PRN PRN Reason: Constipation Paliperidone (Paliperidone Er 3 Mg Tab.Er.24) 3 mg PO DAILY [facility] Last Admin: 09/04/22 09:40 Dose: 3 mg Paliperidone (Paliperidone Er 6 Mg Tab.Er.24) 6 mg PO BEDTIME KIANA Last Admin: 09/03/22 20:49 Dose: 6 mg Trazodone HCl (Trazodone Hcl 50 Mg Tablet) 50 mg PO BEDTIME PRN PRN Reason: Insomnia Last Admin: 09/04/22 00:21 Dose: 50 mg Allergies Allergies Allergy/AdvReac Type Severity Reaction Status Date / Time No Known Allergies Allergy Verified 08/30/22 06:35 Assessment & Plan Assessment & Plan (1) Schizophrenia, paranoid type: Status: Acute Code(s): F20.0 - Paranoid schizophrenia (2) Fracture of fifth metacarpal bone: Status: Acute Code(s): S62.308A - Unspecified fracture of other metacarpal bone, initial encounter for closed fracture Plan 08/31: start invega 3 mg BID. 09/01: no change. continue current mgmt. 09/02: increase invega to 3/6. no change in presentation. 09/03 continue current medications. some improvement in AH per pt. continues internally preoccupied with some paranoid ideas. 09/04/2022: No changes to current plan Reason for continued inpatient stay Substantial Risk for: inability to function Time Spent With Patient Time: Total time managing care of this patient today ____ minutes.
[2022-09-04] MEDS: Paliperidone ER 6 MG TAB.ER.24 PO (20:40)
[2022-09-04 20:44] VITALS: BP 120/75; PULSE 87; TEMP 36.6; O2SAT 96
[2022-09-05] MEDS: Paliperidone ER 3 MG TAB.ER.24 PO (08:29)
[2022-09-05 08:30] VITALS: BP 116/80; PULSE 90; RESP 18; TEMP 36.6; O2SAT 100
[2022-09-05] MEDS: Ibuprofen 800 MG TABLET PO ×2 (08:30→21:41)
--- NOTE | 2022-09-05 13:33 | HO.PSYCHPN ---
Subjective Subjective Date of Service: 09/05/22 Reason For Visit: psychosis Subjective Notes: Conditional Voluntary Medical Problems Affecting Mental Status: No Interim History: met with patient. Discussed with Nursing. Remains on one-to-one observation due to hand splint with Azar wrap. No management issues. With leader writer reports feeling that things are getting better. Feeling safe . No concerns with current treatment and medication regimen. Now denies hearing sounds or voices. No evidence of SI HI or agitation. Medication Compliance: Yes Side effects from medications: No Attending Groups: Intermittent Review of Systems Acute medical concerns: No Review of Systems Review of Systems No acute changes or needs Mental Status Exam Mental Status Exam Narrative: calm and cooperative. hospital elothing, Hand splint. no PMA, possibly PMR. cooperative with interview. speech very soft, slowed, sparse, flattened, increased in latency. thoughts linear and logical. affect blunted. mood OK. no SI/SIBI/HI/AVH expressed. insight and judgment fair Diagnostics Vital Signs (24Hr): Vital Signs - 24 hr 09/04/22 20:44 09/05/22 08:30 Temperature 97.9 F 97.9 F Pulse Rate 87 90 Respiratory Rate 18 Blood Pressure 120/75 116/80 Pulse Oximetry 96 100 Oxygen Delivery Method Room Air Room Air BMI result Body Mass Index 25.0 Labs 08/30/22 08:23 08/31/22 09:08 Imaging Radiology Impressions: ITS Impressions Hand/Wrist X-Ray 08/30/22 06:50 IMPRESSION: Nondisplaced fracture distal fifth metacarpal with mild dorsal angulation of distal fragment. No other fracture seen. Unremarkable left wrist exam. Medications Medications Current Medications Acetaminophen (Acetaminophen 325 Mg Tablet) 650 mg PO Q6H PRN PRN Reason: Headache/Pain Mild Scale (1-3) Last Admin: 09/02/22 16:46 Dose: 650 mg Al Hydroxide/Mg Hydroxide (Magnesium Hydrox/Alum Hydrox 30 Ml Oral.Susp) 30 ml PO Q6H PRN PRN Reason: Heartburn/Nausea Hydroxyzine HCl (Hydroxyzine Hcl 25 Mg Tablet) 25 mg PO Q6H PRN PRN Reason: Anxiety Last Admin: 09/04/22 20:41 Dose: 25 mg Ibuprofen (Ibuprofen 800 Mg Tablet) 800 mg PO Q8H PRN PRN Reason: Pain, Moderate(Pain Scale 4-6) Last Admin: 09/05/22 08:30 Dose: 800 mg Magnesium Hydroxide (Milk Of Magnesia 30 Ml Oral.Susp) 30 ml PO DAILY PRN PRN Reason: Constipation Paliperidone (Paliperidone Er 3 Mg Tab.Er.24) 3 mg PO DAILY KIANA Last Admin: 09/05/22 08:29 Dose: 3 mg Paliperidone (Paliperidone Er 6 Mg Tab.Er.24) 6 mg PO BEDTIME KIANA Last Admin: 09/04/22 20:40 Dose: 6 mg Trazodone HCl (Trazodone Hcl 50 Mg Tablet) 50 mg PO BEDTIME PRN PRN Reason: Insomnia Last Admin: 09/04/22 20:40 Dose: 50 mg Allergies Allergies Allergy/AdvReac Type Severity Reaction Status Date / Time No Known Allergies Allergy Verified 08/30/22 06:35 Assessment & Plan Assessment & Plan (1) Schizophrenia, paranoid type: Status: Acute Code(s): F20.0 - Paranoid schizophrenia (2) Fracture of fifth metacarpal bone: Status: Acute Code(s): S62.308A - Unspecified fracture of other metacarpal bone, initial encounter for closed fracture Plan 08/31: start invega 3 mg BID. 09/01: no change. continue current mgmt. 09/02: increase invega to 3/6. no change in presentation. 09/03 continue current medications. some improvement in AH per pt. continues internally preoccupied with some paranoid ideas. 09/05/2022: No changes to current plan Reason for continued inpatient stay Substantial Risk for: inability to function Time Spent With Patient Time: Total time managing care of this patient today ____ minutes.
[2022-09-05] MEDS: Acetaminophen 325 MG TABLET 650 MG PO (17:27)
[2022-09-05 19:45] VITALS: BP 131/79; PULSE 82; RESP 18; TEMP 36.7; O2SAT 98
[2022-09-05] MEDS: Paliperidone ER 6 MG TAB.ER.24 PO (21:37)
[2022-09-05] MEDS: hydrOXYzine HCL 25 MG TABLET PO (21:41)
[2022-09-05] MEDS: traZODone HCL 50 MG TABLET PO (21:42)
[2022-09-06 08:29] VITALS: BP 133/88; PULSE 93; TEMP 36.6; O2SAT 100
[2022-09-06] MEDS: Ibuprofen 800 MG TABLET PO ×2 (08:50→20:28)
[2022-09-06] MEDS: Paliperidone ER 3 MG TAB.ER.24 PO (08:50)
--- NOTE | 2022-09-06 08:50 | HO.PSYCHPN ---
Subjective Subjective Date of Service: 09/06/22 Reason For Visit: psychosis Subjective Notes: Conditional Voluntary Interim History: met with patient. Discussed with Nursing. Remains on one-to-one observation due to hand splint with Azar wrap. No management issues. Pt reports feeling better, tired today. He denies SI/HI. He reports less AH/VH. He hopes to be discharged soon. Pt tolerating medications. No behavioral concerns. Medication Compliance: Yes Side effects from medications: No Review of Systems Review of Systems No acute changes or needs Yes all other systems are reviewed and are negative Constitutional: Reports as per HPI Mental Status Exam Mental Status Exam Narrative: calm and cooperative. hospital elothing, Hand splint. no PMA, possibly PMR. cooperative with interview. speech very soft, slowed, sparse, flattened, increased in latency. thoughts linear and logical. affect blunted. mood OK. no SI/SIBI/HI/AVH expressed. insight and judgment fair Diagnostics Vital Signs (24Hr): Vital Signs - 24 hr 09/05/22 19:45 09/06/22 08:29 Temperature 98.0 F 97.8 F Pulse Rate 82 93 Respiratory Rate 18 Blood Pressure 131/79 133/88 Pulse Oximetry 98 100 Oxygen Delivery Method Room Air Room Air BMI result Body Mass Index 25.0 Labs 08/30/22 08:23 08/31/22 09:08 Imaging Radiology Impressions: ITS Impressions Hand/Wrist X-Ray 08/30/22 06:50 IMPRESSION: Nondisplaced fracture distal fifth metacarpal with mild dorsal angulation of distal fragment. No other fracture seen. Unremarkable left wrist exam. Medications Medications Current Medications Acetaminophen (Acetaminophen 325 Mg Tablet) 650 mg PO Q6H PRN PRN Reason: Headache/Pain Mild Scale (1-3) Last Admin: 09/05/22 17:27 Dose: 650 mg Al Hydroxide/Mg Hydroxide (Magnesium Hydrox/Alum Hydrox 30 Ml Oral.Susp) 30 ml PO Q6H PRN PRN Reason: Heartburn/Nausea Hydroxyzine HCl (Hydroxyzine Hcl 25 Mg Tablet) 25 mg PO Q6H PRN PRN Reason: Anxiety Last Admin: 09/05/22 21:41 Dose: 25 mg Ibuprofen (Ibuprofen 800 Mg Tablet) 800 mg PO Q8H PRN PRN Reason: Pain, Moderate(Pain Scale 4-6) Last Admin: 09/05/22 21:41 Dose: 800 mg Magnesium Hydroxide (Milk Of Magnesia 30 Ml Oral.Susp) 30 ml PO DAILY PRN PRN Reason: Constipation Paliperidone (Paliperidone Er 3 Mg Tab.Er.24) 3 mg PO DAILY KIANA Last Admin: 09/05/22 08:29 Dose: 3 mg Paliperidone (Paliperidone Er 6 Mg Tab.Er.24) 6 mg PO BEDTIME KIANA Last Admin: 09/05/22 21:37 Dose: 6 mg Trazodone HCl (Trazodone Hcl 50 Mg Tablet) 50 mg PO BEDTIME PRN PRN Reason: Insomnia Last Admin: 09/05/22 21:42 Dose: 50 mg Allergies Allergies Allergy/AdvReac Type Severity Reaction Status Date / Time No Known Allergies Allergy Verified 08/30/22 06:35 Assessment & Plan Assessment & Plan (1) Schizophrenia, paranoid type: Status: Acute Code(s): F20.0 - Paranoid schizophrenia (2) Fracture of fifth metacarpal bone: Status: Acute Code(s): S62.308A - Unspecified fracture of other metacarpal bone, initial encounter for closed fracture Plan 08/31: start invega 3 mg BID. 09/01: no change. continue current mgmt. 09/02: increase invega to 3/6. no change in presentation. 09/03 continue current medications. some improvement in AH per pt. continues internally preoccupied with some paranoid ideas. 09/05/2022: No changes to current plan 09/06 continue tx. Patient educated on: diagnosis Informed Consent: understands Reason for continued inpatient stay Substantial Risk for: inability to function Time Spent With Patient Time: Total time managing care of this patient today ____ minutes.
[2022-09-06] MEDS: hydrOXYzine HCL 25 MG TABLET PO (10:26)
[2022-09-06] MEDS: Acetaminophen 325 MG TABLET 650 MG PO (17:48)
[2022-09-06 20:24] VITALS: BP 122/67; PULSE 77; TEMP 36.6; O2SAT 98
[2022-09-06] MEDS: Paliperidone ER 6 MG TAB.ER.24 PO (20:28)
[2022-09-06] MEDS: traZODone HCL 50 MG TABLET PO ×2 (20:31→21:59)
[2022-09-07 08:11] VITALS: BP 126/79; PULSE 94; TEMP 36.2; O2SAT 99
[2022-09-07] MEDS: Ibuprofen 800 MG TABLET PO ×2 (08:12→20:55)
[2022-09-07] MEDS: Paliperidone ER 3 MG TAB.ER.24 PO (08:12)
[2022-09-07] MEDS: Acetaminophen 325 MG TABLET 650 MG PO (09:17)
--- NOTE | 2022-09-07 11:43 | HO.PSYCHPN ---
Subjective Subjective Date of Service: 09/07/22 Reason For Visit: psychosis Subjective Notes: Conditional Voluntary Interim History: Pt sleeping better. He reports trazodone helpful. He reports voices are less more manageable. No SI/HI. Pt taking paliperidone. He declined getting OHARA of invega. No behavioral concerns. Pt asking for discharge soon. Medication Compliance: Yes Side effects from medications: No Review of Systems Review of Systems No acute changes or needs Yes all other systems are reviewed and are negative Constitutional: Reports as per HPI Mental Status Exam Mental Status Exam Narrative: calm and cooperative. hospital elothing, Hand splint. no PMA, possibly PMR. cooperative with interview. speech very soft, slowed, sparse, flattened, increased in latency. thoughts linear and logical. affect blunted. mood OK. no SI/SIBI/HI/AVH expressed. insight and judgment fair Diagnostics Vital Signs (24Hr): Vital Signs - 24 hr 09/06/22 20:24 09/07/22 08:11 Temperature 97.8 F 97.2 F Pulse Rate 77 94 Blood Pressure 122/67 126/79 Pulse Oximetry 98 99 Oxygen Delivery Method Room Air Room Air BMI result Body Mass Index 25.0 Labs 08/30/22 08:23 08/31/22 09:08 Imaging Radiology Impressions: ITS Impressions Hand/Wrist X-Ray 08/30/22 06:50 IMPRESSION: Nondisplaced fracture distal fifth metacarpal with mild dorsal angulation of distal fragment. No other fracture seen. Unremarkable left wrist exam. Medications Medications Current Medications Acetaminophen (Acetaminophen 325 Mg Tablet) 650 mg PO Q6H PRN PRN Reason: Headache/Pain Mild Scale (1-3) Last Admin: 09/07/22 09:17 Dose: 650 mg Al Hydroxide/Mg Hydroxide (Magnesium Hydrox/Alum Hydrox 30 Ml Oral.Susp) 30 ml PO Q6H PRN PRN Reason: Heartburn/Nausea Hydroxyzine HCl (Hydroxyzine Hcl 25 Mg Tablet) 25 mg PO Q6H PRN PRN Reason: Anxiety Last Admin: 09/06/22 10:26 Dose: 25 mg Ibuprofen (Ibuprofen 800 Mg Tablet) 800 mg PO Q8H PRN PRN Reason: Pain, Moderate(Pain Scale 4-6) Last Admin: 09/07/22 08:12 Dose: 800 mg Magnesium Hydroxide (Milk Of Magnesia 30 Ml Oral.Susp) 30 ml PO DAILY PRN PRN Reason: Constipation Paliperidone (Paliperidone Er 3 Mg Tab.Er.24) 3 mg PO DAILY KIANA Last Admin: 09/07/22 08:12 Dose: 3 mg Paliperidone (Paliperidone Er 6 Mg Tab.Er.24) 6 mg PO BEDTIME KIANA Last Admin: 09/06/22 20:28 Dose: 6 mg Trazodone HCl (Trazodone Hcl 50 Mg Tablet) 50 mg PO BEDTIME PRN PRN Reason: Insomnia Last Admin: 09/06/22 21:59 Dose: 50 mg Allergies Allergies Allergy/AdvReac Type Severity Reaction Status Date / Time No Known Allergies Allergy Verified 08/30/22 06:35 Assessment & Plan Assessment & Plan (1) Schizophrenia, paranoid type: Status: Acute Code(s): F20.0 - Paranoid schizophrenia (2) Fracture of fifth metacarpal bone: Status: Acute Code(s): S62.308A - Unspecified fracture of other metacarpal bone, initial encounter for closed fracture Plan 08/31: start invega 3 mg BID. 09/01: no change. continue current mgmt. 09/02: increase invega to 3/6. no change in presentation. 09/03 continue current medications. some improvement in AH per pt. continues internally preoccupied with some paranoid ideas. 09/05/2022: No changes to current plan 09/06 continue tx. 09/07 continue tx. Reason for continued inpatient stay Substantial Risk for: inability to function Time Spent With Patient Time: Total time managing care of this patient today ____ minutes.
[2022-09-07 20:45] VITALS: BP 140/83; PULSE 97; RESP 16; TEMP 36.3; O2SAT 99
[2022-09-07] MEDS: traZODone HCL 50 MG TABLET PO ×2 (20:55→22:04)
[2022-09-07] MEDS: Paliperidone ER 6 MG TAB.ER.24 PO (20:55)
[2022-09-07] MEDS: hydrOXYzine HCL 25 MG TABLET PO (22:05)
[2022-09-08 07:56] VITALS: BP 138/83; PULSE 91; RESP 18; TEMP 36.6; O2SAT 100
[2022-09-08] MEDS: Paliperidone ER 3 MG TAB.ER.24 PO (07:56)
[2022-09-08] MEDS: hydrOXYzine HCL 25 MG TABLET PO (09:03)
--- NOTE | 2022-09-08 13:53 | HO.PSYCHPN ---
Subjective Subjective Date of Service: 09/08/22 Reason For Visit: psychosis Interim History: pt asking about discharge today, informs him there is no plan for that. agree on discharge tomorrow to allow time for appointments to be made, and also to see how med changes requested by pt go. pt requests increase in invega dosing to 6 mg BID, which is done. feels the medication has been helpful for him. asking about aftercare, referred to speak with SW. per staff, visible. showering. making jokes. denies SI/HI/AVH. wants to D/C. using headphones a lot. +meds, meals, sleep. Mental Status Exam Mental Status Exam Narrative: calm and cooperative. wearing hospital marine. no PMA, possibly PMR. cooperative with interview. speech soft, slowed, less sparse, flattened, nml latency. thoughts linear and logical. affect blunted. mood pretty happy. no SI/SIBI. no HI/AVH expressed. Diagnostics Vital Signs (24Hr): Vital Signs - 24 hr 09/07/22 20:45 09/08/22 07:56 Temperature 97.3 F 97.8 F Pulse Rate 97 91 Respiratory Rate 16 18 Blood Pressure 140/83 H 138/83 Pulse Oximetry 99 100 Oxygen Delivery Method Room Air Room Air BMI result Body Mass Index 25.0 Labs 08/30/22 08:23 08/31/22 09:08 Imaging Radiology Impressions: ITS Impressions Hand/Wrist X-Ray 08/30/22 06:50 IMPRESSION: Nondisplaced fracture distal fifth metacarpal with mild dorsal angulation of distal fragment. No other fracture seen. Unremarkable left wrist exam. Medications Medications Current Medications Acetaminophen (Acetaminophen 325 Mg Tablet) 650 mg PO Q6H PRN PRN Reason: Headache/Pain Mild Scale (1-3) Last Admin: 09/07/22 09:17 Dose: 650 mg Al Hydroxide/Mg Hydroxide (Magnesium Hydrox/Alum Hydrox 30 Ml Oral.Susp) 30 ml PO Q6H PRN PRN Reason: Heartburn/Nausea Hydroxyzine HCl (Hydroxyzine Hcl 25 Mg Tablet) 25 mg PO Q6H PRN PRN Reason: Anxiety Last Admin: 09/08/22 09:03 Dose: 25 mg Ibuprofen (Ibuprofen 800 Mg Tablet) 800 mg PO Q8H PRN PRN Reason: Pain, Moderate(Pain Scale 4-6) Last Admin: 09/07/22 20:55 Dose: 800 mg Magnesium Hydroxide (Milk Of Magnesia 30 Ml Oral.Susp) 30 ml PO DAILY PRN PRN Reason: Constipation Paliperidone (Paliperidone Er 6 Mg Tab.Er.24) 6 mg PO BID KIANA Trazodone HCl (Trazodone Hcl 50 Mg Tablet) 50 mg PO BEDTIME PRN PRN Reason: Insomnia Last Admin: 09/07/22 22:04 Dose: 50 mg Allergies Allergies Allergy/AdvReac Type Severity Reaction Status Date / Time No Known Allergies Allergy Verified 08/30/22 06:35 Assessment & Plan Assessment & Plan (1) Schizophrenia, paranoid type: Status: Acute Code(s): F20.0 - Paranoid schizophrenia (2) Fracture of fifth metacarpal bone: Status: Acute Code(s): S62.308A - Unspecified fracture of other metacarpal bone, initial encounter for closed fracture Plan 08/31: start invega 3 mg BID. 09/01: no change. continue current mgmt. 09/02: increase invega to 3/6. no change in presentation. 09/03: continue current medications. some improvement in AH per pt. continues internally preoccupied with some paranoid ideas. 09/05: No changes to current plan 09/06: continue tx. 09/07: continue tx. 09/08: increase paliperidone from 3/6 to 6 BID per pt request. discharge tomorrow, also per pt request. much improved from admission. less slowed, less paucity of thought/language, less paranoid, louder speech. denies SI/SIBI. Reason for continued inpatient stay Substantial Risk for: inability to function and rapid decompensation Time Spent With Patient Time: Total time managing care of this patient today __25__ minutes.
[2022-09-08] MEDS: Ibuprofen 800 MG TABLET PO (19:28)
[2022-09-08 20:05] VITALS: BP 148/92; PULSE 118; RESP 18; TEMP 36.3; O2SAT 97
[2022-09-08] MEDS: traZODone HCL 50 MG TABLET PO (21:29)
[2022-09-08] MEDS: Acetaminophen 325 MG TABLET 650 MG PO (21:29)
[2022-09-09 08:33] VITALS: BP 137/80; PULSE 92; RESP 18; TEMP 36.1; O2SAT 99
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
== END 2022-09-09 13:48 | disposition home or self-care (01) | DRG 885 ==
LOC: HO.ED 16:26 → HO.PADLT16 18:12
PROVIDERS: Physician Assistant; Admitting Provider Psychiatry & Neurology Psychiatry; Emergency Provider Emergency Medicine; Visit Provider Psychiatry & Neurology Psychiatry
DX: F20.0 Paranoid schizophrenia (principal); S62.308A Unspecified fracture of other metacarpal bone, initial encounter for closed fracture; W22.8XXA Striking against or struck by other objects, initial encounter; F17.210 Nicotine dependence, cigarettes, uncomplicated; Z71.6 Tobacco abuse counseling; Z79.899 Other long term (current) drug therapy
CPT/HCPCS: 36415; 73110; 73130; 80053; 80061; 80307; 81001; 85025; 99285; S9485

== ENCOUNTER 2022-09-17 23:13 | Emergency (ER) | payer OTHER, SELFPAY ==
[2022-09-17 23:20] VITALS: BMI 22.6
[2022-09-17 23:28] VITALS: BP 140/84; PULSE 104; RESP 17; TEMP 36.6; O2SAT 97
[2022-09-18] LABS: MANUAL DIFF FLAG NO
[2022-09-18 00:01] LABS: Basophils Percent Auto 0.6 % (0-2); Eosinophils Absolute Auto 0.1 X10*3/uL (0.0-0.4); Hematocrit 40.8 % (42.0-52.0); Hemoglobin 14.5 g/dl (14.0-18.0); Imm Gran Abs Auto 0.01 X10*3/uL (0.00-0.03); Imm Gran Pct Auto 0.1 % (0.0-0.4); Lymphocytes Absolute Auto 2.1 X10*3/uL (1.2-4.9); Lymphocytes Percent Auto 30.6 % (20-40); Mean Corpuscular HGB Conc 35.5 g/dl (31.0-36.0); Mean Corpuscular Volume 90.1 fL (80.0-98.0); Monocytes Absolute Auto 0.6 X10*3/uL (0.1-1.2); Monocytes Percent Auto 8.3 % (2-11); Neutrophils Absolute Auto 4.2 x10*3/uL (2.0-8.3); Neutrophils Percent Auto 59.4 % (45-73); Platelet Count 270 X10*3/uL (160-400); Red Blood Count 4.53 X10*6/uL (4.60-5.80); Red Cell Distribution Width 12.1 % (11.0-16.0)
[2022-09-18 00:22] LABS: Amphetamine Screen Urine Not Detected (Not Detect); Barbiturates, Urine Not Detected (Not Detect); Benzodiazepines Screen Urine Not Detected (Not Detect); Cannabinoid Screen Urine POSITIVE (Not Detect); Cocaine Screen Urine Not Detected (Not Detect); Fentanyl, urine Not Detected (Not Detect); Opiate Screen Urine Not Detected (Not Detect); Phencyclidine Screen Urine Not Detected (Not Detect)
[2022-09-18 00:28] LABS: Alanine Aminotransferase 30 U/L (0-40); Albumin Level 4.1 g/dL (3.5-5.0); Alkaline Phosphatase 133 U/L (39-117); Anion Gap 11 (12-20); Aspartate Amino Transferase 21 U/L (5-37); Bilirubin Total 0.4 mg/dL (0.0-1.0); Blood Urea Nitrogen 8 mg/dL (9-16); Calcium 11.3 mg/dL (8.4-10.2); Carbon Dioxide 25 mmol/L (22-29); Chloride 107 mmol/L (96-108); Creatinine Clr Calc Pharmacy 141.8; Estimated Glomerular Filt Rate > 60; Ethanol < 10 mg/dL; Glucose Random 103 mg/dL (60-115); Potassium 3.4 mmol/L (3.3-5.1); Sodium 140 mmol/L (135-145); Total Protein 6.6 g/dL (6.5-8.0)
--- NOTE | 2022-09-18 01:00 | ED.PSYCH ---
HPI - Psych General Chief Complaint: Psychiatric Symptoms Stated Complaint: sob from panic attack, per ems Time Seen by Provider: 09/17/22 23:29 Source: patient Mode of arrival: EMS Limitations: no limitations History of Present Illness HPI Narrative: Patient comes to emergency room by ambulance. Patient called from his home. Patient called PD 3 times prior to arrival stating that he was feeling mentally unwell. Patient denies suicidal homicidal ideation. Patient known to have schizophrenia and states that he has been off medications for several months, states that he marion with his illness with alcohol. Related Data Home Medications Medication Instructions Recorded Confirmed No Known Home Meds 09/18/22 09/18/22 Allergies Allergy/AdvReac Type Severity Reaction Status Date / Time No Known Allergies Allergy Verified 08/30/22 06:35 Review of Systems Review of Systems: Constitutional : No Weight loss, No Fever, No Chills, No Night Sweats, No Fatigue, No Malaise ENT/Mouth : No Hearing loss, No Ear Pain, No Nasal Congestion, No Sinus Pain, No Hoarseness, No sore throat, No Rhinorrhea, No Swallowing Difficulty Eyes: No Eye Pain, No Swelling, No Redness, No Foreign Body, No Discharge, No Vision Changes Cardiovascular : No Chest Pain, No SOB, No Dyspnea on Exertion, No Orthopnea, No Edema, No Palpitations Respiratory : No Cough, No Sputum, No Wheezing, No Smoke Exposure, No Dyspnea Gastrointestinal : No Nausea, No Vomiting, No Diarrhea, No Constipation, No abdominal Pain, No Hematochezia, No Melena Genitourinary : no irregular bleeding, No Dysuria, No Urinary Frequency, No Hematuria, No Urinary Incontinence, No Urgency, No Flank Pain, No Urinary Flow Changes, No Hesitancy Musculoskeletal : No joint pain, No Myalgias, No Joint Swelling Skin : No Skin Lesions, No rash Neuro : No Weakness, No Numbness, No Paresthesias, No Loss of Consciousness, No Dizziness, No Headache Psych : Complaining of not feeling mentally well Heme/Lymph: No Bruising, No Bleeding,No Lymphadenopathy Endocrine : No Polyuria, No Polydipsia, No Temperature Intolerance PMFSH Past Medical History Medical History Ankle fracture, lateral malleolus, closed Depression Leukocytosis Noncompliance with medication regimen Paranoia Schizophrenia, paranoid type Sinus tachycardia Vitamin D deficiency Social History Social History Household Members: None Household Members Other:: Kathy Housing: Apartment Do you presently have visiting nurse or other home services: No Unable to assess alcohol history related to: Refusing to respond Alcohol intake: current Alcohol intake frequency: 3 or more drinks per day Alcohol type: hard liquor Patient Tobacco Use Status: Current someday Tobacco user Tobacco use type: Cigarette Cigarette Packs Per Day: 1 Cigarettes Per Day: 20.0 Years Smoked: 1 month Second Hand Smoke Exposure: No Substance Use Type: Marijuana Advance Directives: No Advance Directives Information Provided: Yes service: No Sexual orientation: Don't Know Physical Exam Vital Signs: Vital Signs: Last Vital Signs Temp 98 F 09/17/22 23:28 Pulse 104 H 09/17/22 23:28 Resp 17 09/17/22 23:28 BP 140/84 H 09/17/22 23:28 Pulse Ox 97 09/17/22 23:28 O2 Del Method Room Air 09/17/22 23:28 BMI result Body Mass Index 22.6 Const: Other: Appearance: Alert. Oriented X3. No acute distress. Somnolent, easily arousable Eyes: Pupils equal, round and reactive to light. ENT: Pharynx normal. Neck: Normal inspection. Neck supple. No lymph nodes noted. No crepitus CVS: Normal heart rate and rhythm. Pulses normal. Normal S1 and S2 Respiratory: No respiratory distress. Breath sounds normal. No Wheezing. No rales Abdomen: Soft and nontender. No rigidity. No distention. Skin: Skin warm and dry. Normal skin color. Normal skin turgor. Extremities: No lower extremity edema. No Lacerations. No Rash Neuro: Oriented X 3. No motor deficit. No sensory deficit. Moving all extremities. No slurred speech. CN 2 through 12 grossly intact Psych: calm, cooperative, speaks very softly, avoids eye contact Course Course Course Narrative: -I reviewed patient's labs, no acute findings. -patient's urine toxicology positive for THC, blood work negative for ETOH -care team consult pending -patient not suicidal or homicidal, not on a Section 12. Patient is here voluntarily -physician observation started at 01:00 Medical Decision Making Medical Decision Making MDM Narrative: -patient since decompensated, likely to be admitted by psychiatry. Submission consider. -I reviewed patient's labs, my interpretation: No acute findings. White blood cell count normal, no electrolyte abnormalities. Urine toxicology positive for THC - Differential Diagnosis Differential Diagnoses: The differential diagnosis associated with the presentation includes (Polysubstance substance abuse, alcohol abuse, anxiety, depression, schizophrenia) Admission/Observation Consideration of admission/observation: Escalation of care including admission/observation considered Lab Data [facility] Lab Attestation statement: I reviewed the patient's lab results. 09/17/22 23:50 09/17/22 23:51 Labs: Lab Results 09/17/22 09/17/22 09/17/22 Range/Units 23:50 23:50 23:51 WBC 7.0 (4.8-10.8) X10*3/uL RBC 4.53 L (4.60-5.80) X10*6/uL Hgb 14.5 (14.0-18.0) g/dl Hct 40.8 L (42.0-52.0) % MCV 90.1 (80.0-98.0) fL MCH 32.0 (27.0-33.0) pg MCHC 35.5 (31.0-36.0) g/dl RDW 12.1 (11.0-16.0) % Plt Count 270 (160-400) X10*3/uL MPV 9.0 L (9.4-12.4) fL Immature Gran % (Auto) 0.1 (0.0-0.4) % Neut % (Auto) 59.4 (45-73) % Lymph % (Auto) 30.6 (20-40) % Butts % (Auto) 8.3 (2-11) % Eos % (Auto) 1.0 (0-4) % Baso % (Auto) 0.6 (0-2) % Lymph # (Auto) 2.1 (1.2-4.9) X10*3/uL Butts # (Auto) 0.6 (0.1-1.2) X10*3/uL Eos # (Auto) 0.1 (0.0-0.4) X10*3/uL Baso # (Auto) 0.0 (0.0-0.2) X10*3/uL Abs Immat Gran (auto) 0.01 (0.00-0.03) X10*3/uL Absolute Neuts (auto) 4.2 (2.0-8.3) x10*3/uL Absolute Nucleated RBC 0.000 (0.0-0.012) X10*3/uL Nucleated RBC % (auto) 0.0 (0.0-0.2) /100WBC Sodium 140 (135-145) mmol/L Potassium 3.4 D (3.3-5.1) mmol/L Chloride 107 (96-108) mmol/L Carbon Dioxide 25 (22-29) mmol/L Anion Gap 11 L (12-20) BUN 8 L (9-16) mg/dL Creatinine 0.69 (0.5-1.4) mg/dL Estim Creat Clear Calc 141.8 Estimated GFR > 60 Random Glucose 103 (60-115) mg/dL Calcium 11.3 H (8.4-10.2) mg/dL Total Bilirubin 0.4 (0.0-1.0) mg/dL AST 21 (5-37) U/L ALT 30 (0-40) U/L Alkaline Phosphatase 133 H (39-117) U/L Total Protein 6.6 (6.5-8.0) g/dL Albumin 4.1 (3.5-5.0) g/dL Urine Color Urine Appearance Urine pH (5.0-9.0) Ur Specific [place] (1.005-1.025) Urine Protein (Neg-Trace) mg/dL Urine Glucose (UA) (Negative) mg/dL Urine Ketones (Negative) mg/dL Urine Blood (Negative) Urine Nitrite (Negative) Ur Leukocyte Esterase (Negative) Urine Opiates Screen Not Detected (Not Detect) Urine Fentanyl Screen Not Detected (Not Detect) Ur Barbiturates Screen Not Detected (Not Detect) Ur Phencyclidine Scrn Not Detected (Not Detect) Ur Amphetamines Screen Not Detected (Not Detect) U Benzodiazepines Scrn Not Detected (Not Detect) Urine Cocaine Screen Not Detected (Not Detect) U Marijuana (THC) Screen POSITIVE H (Not Detect) Ethyl Alcohol < 10 mg/dL 09/18/22 Range/Units 01:09 WBC (4.8-10.8) X10*3/uL RBC (4.60-5.80) X10*6/uL Hgb (14.0-18.0) g/dl Hct (42.0-52.0) % MCV (80.0-98.0) fL MCH (27.0-33.0) pg MCHC (31.0-36.0) g/dl RDW (11.0-16.0) % Plt Count (160-400) X10*3/uL MPV (9.4-12.4) fL Immature Gran % (Auto) (0.0-0.4) % Neut % (Auto) (45-73) % Lymph % (Auto) (20-40) % Butts % (Auto) (2-11) % Eos % (Auto) (0-4) % Baso % (Auto) (0-2) % Lymph # (Auto) (1.2-4.9) X10*3/uL Butts # (Auto) (0.1-1.2) X10*3/uL Eos # (Auto) (0.0-0.4) X10*3/uL Baso # (Auto) (0.0-0.2) X10*3/uL Abs Immat Gran (auto) (0.00-0.03) X10*3/uL Absolute Neuts (auto) (2.0-8.3) x10*3/uL Absolute Nucleated RBC (0.0-0.012) X10*3/uL Nucleated RBC % (auto) (0.0-0.2) /100WBC Sodium (135-145) mmol/L Potassium (3.3-5.1) mmol/L Chloride (96-108) mmol/L Carbon Dioxide (22-29) mmol/L Anion Gap (12-20) BUN (9-16) mg/dL Creatinine (0.5-1.4) mg/dL Estim Creat Clear Calc Estimated GFR Random Glucose (60-115) mg/dL Calcium (8.4-10.2) mg/dL Total Bilirubin (0.0-1.0) mg/dL AST (5-37) U/L ALT (0-40) U/L Alkaline Phosphatase (39-117) U/L Total Protein (6.5-8.0) g/dL Albumin (3.5-5.0) g/dL Urine Color Yellow Urine Appearance Clear Urine pH 6.0 (5.0-9.0) Ur Specific [place] 1.010 (1.005-1.025) Urine Protein Negative (Neg-Trace) mg/dL Urine Glucose (UA) Negative (Negative) mg/dL Urine Ketones Negative (Negative) mg/dL Urine Blood Negative (Negative) Urine Nitrite Negative (Negative) Ur Leukocyte Esterase Trace H (Negative) Urine Opiates Screen (Not Detect) Urine Fentanyl Screen (Not Detect) Ur Barbiturates Screen (Not Detect) Ur Phencyclidine Scrn (Not Detect) Ur Amphetamines Screen (Not Detect) U Benzodiazepines Scrn (Not Detect) Urine Cocaine Screen (Not Detect) U Marijuana (THC) Screen (Not Detect) Ethyl Alcohol mg/dL External Record Review External record reviewed: Inpatient record Patient was discharged on 09/09/2022, patient was admitted for paranoid schizophrenia Discharge Plan Discharge Clinical Impression: Schizophrenia, paranoid type Patient Disposition: Still a Patient Prescriptions: No Action No Known Home Meds Interventions: [place]-Suicide Risk Severity Scale Last Done: 09/17/22 23:27
[2022-09-18 01:17] LABS: Appearance Urine Clear; Color Urine Yellow; Glucose Urine UA Negative (Negative); Leukocyte Esterase Urine Trace (Negative); Nitrite Urine Negative (Negative); UMIC TRIGGER UA YES; Urine Blood Negative (Negative); Urine Ketones Negative (Negative); Urine Protein Negative (Neg-Trace)
[2022-09-18 02:06] LABS: Bacteria Urine None Seen (None Seen); Hyaline Casts Urine 0-2 /LPF (0-2); RBC Urine 0-2 /HPF (0-2); Squamous Epithelial Cell Urine 0-2 /HPF (0-2); WBC Urine 0-5 /HPF (0-5)
--- NOTE | 2022-09-18 06:35 | PC.NURSE ---
Patient slept through the night, no distress observed/reported, behavior non concerning, care consult ordered/pending evaluation in the morning, med rec completed/pending provider's approval, labs completed/resulted, VSS, will continue to monitor.
--- NOTE | 2022-09-18 07:36 | PC.NURSE ---
Resumed care of patient this morning, he is currently resting in bed, pt has been up to use the bathroom, able to ambulate steady and make needs known. All safety measures in place at this time. Awaiting careteam consult at this time
[2022-09-18] MEDS: Paliperidone ER 6 MG TAB.ER.24 PO (09:04)
[2022-09-18 09:09] VITALS: BP 126/82; PULSE 96; RESP 18; O2SAT 98
--- NOTE | 2022-09-18 10:10 | MHC.CARE ---
Pt arrived voluntarily at [facility] via ambulance. Pt reports that he suffered a panic attack while being locked out of his apartment on his porch, which he states lasted between 4-6 hours. Pt most recently had been IPLOC on M3 between August 30-09/10. Pt has a hx of schizophrenia. He was prescribed Invega which he states he has taken. He did miss his set up therapy appt but is looking to reschedule. Pt did not display any symptoms of SI/HI and was able to contract for safety. He reported that he was on the porch when the door closed behind him and locked him out. He started to suffer a panic attack, and contacted EMS for assistance.Pt has a history of IPLOC which seem to be a result of him not taking his prescribed medication. Review of his last assessment it was noted that PT was disheveled, disorientated and ongoing concerns with his hygiene. During this assessment, Pt was able to maintain ongoing eye contact, able to respond to questions ( although soft spoken) and presented as well maintained. Pt gave permission to contact his brother, Graeme, to gather collateral information. Graeme stated that he had been in contact with his brother last night when he was stuck on his porch. Previously, Graeme had provided information regarding his brothers ongoing struggle to consistently take his medication, which led to mental decompensation. When asked if he has noticed a difference since his brother has been discharged he stated that he has noticed that he has been more talkative which is a good sign. Graeme states that he can tell when Rolan is off his medication as he keeps to himself and is hard to understand what he is saying, so its a good sign. Care SW thanked Graeme for this time and stated that it seems as though his brother does not require IPLOC at this time, however if that changed he would be informed. Graeme stated that he would check in with him as well. Discharge was conferenced with KAYLA Saucedo, who was in agreement with the discharging pt. Dr. Borjas was also made aware so that she could discharge pt at this time.
== END 2022-09-18 10:46 | disposition home or self-care (01) ==
PROVIDERS: Emergency Provider Emergency Medicine
DX: F25.9 Schizoaffective disorder, unspecified (principal); F41.0 Panic disorder [episodic paroxysmal anxiety]; R06.02 Shortness of breath; F17.210 Nicotine dependence, cigarettes, uncomplicated; Z71.6 Tobacco abuse counseling
CPT/HCPCS: 36415; 80053; 80307; 81001; 85025; 99284; 99285

== ENCOUNTER 2023-03-05 10:27 | Inpatient (IN) | payer MEDICARE, OTHER, SELFPAY ==
--- NOTE | ~2023-03-05 | CT_ITS ---
EXAMINATION: CT ABDOMEN AND PELVIS WITH CONTRAST CLINICAL INFORMATION: n/v R sided abdominal pain WBC 19 COMPARISON: None. TECHNIQUE: Multidetector volumetric imaging was performed from the superior aspect of the liver through the pubic symphysis following administration of 85 mL Omnipaque 300 intravenous contrast. Sagittal and coronal reformatted images were obtained on the technologist workstation.. This CT examination was performed using dose optimization techniques as appropriate, variously including the following: *Automated exposure control *Adjustment of mA and/or kV according to patient size (this includes techniques or standardized protocols for targeted exams where dose is matched to indication/reason for exam; i.e. extremities or head) *Use of iterative reconstruction technique Unfortunately there is extensive motion artifact breathing when imaging the upper abdomen DLP: 462 mGy-cm FINDINGS: LUNG BASES: Linear atelectasis at the left lung base LIVER, GALLBLADDER, AND BILIARY TREE: The liver is normal in size, shape, and attenuation. No focal hepatic lesion or biliary ductal dilatation is present. The gallbladder is unremarkable with no evidence of radiopaque gallstones, gallbladder wall thickening, or obvious pericholecystic inflammatory changes. PANCREAS: Unremarkable. SPLEEN: Unremarkable. ADRENAL GLANDS: Unremarkable. KIDNEYS AND URETERS: There is right-sided hydronephrosis, hydroureter, and perinephric stranding. The right ureter is dilated up to a 9 mm calcification in the proximal right ureter at the level of L3. Contralateral left kidney unremarkable BLADDER: Decompressed GASTROINTESTINAL TRACT: The small and large bowel are unremarkable. The appendix is unremarkable. ABDOMINAL WALL: No significant hernia is appreciated. LYMPHOVASCULAR STRUCTURES: No lymphadenopathy. The aorta is unremarkable. PELVIC VISCERA: Unremarkable. OSSEOUS STRUCTURES: Unremarkable. CT/CT abdomen pelvis w IV con IMPRESSION: Right-sided hydronephrosis and hydroureter extending up to a 9 mm calcification in the proximal right ureter at the level of L3.
--- NOTE | ~2023-03-05 | XR_ITS ---
EXAMINATION: XR ABDOMEN KUB CLINICAL INDICATION: Constipation COMPARISON: None available. TECHNIQUE: AP view of the abdomen. FINDINGS: Unremarkable bowel gas pattern. Stool and air seen throughout the colon to the rectum. No significant small bowel dilatation or obstruction seen. Stomach is partially decompressed. Calcifications overlying the right renal shadow greater than left difficult to define further. XR/XR KUB IMPRESSION: Unremarkable bowel gas pattern. Stool and air seen throughout the colon to the rectum.
[2023-03-05 10:42] VITALS: BP 120/72; PULSE 82; O2SAT 99
--- NOTE | 2023-03-05 11:22 | ED_ITS ---
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 No fevers. He also had SI and burned some of his fingertips and punched a mirror in self harm. MD complaint: suicidal ideation and feels depressed Onset (ago): day(s) (few) Duration: getting worse History of same: Yes Relieving factors: none Exacerbating factors: other Context: not taking psychiatric medications Associated psychiatric symptoms: depression and suicidal ideation Associated symptoms: nausea, vomiting and other (abdominal pain) If self harm: admits thoughts of self harm, has plan and self-inflicted trauma Related Data Home Medications Medication Instructions Recorded Confirmed hydroxyzine HCl 25 mg tablet 25 mg PO BID PRN Anxiety 09/18/22 09/18/22 paliperidone 6 mg tablet,extended 6 mg PO BID 09/18/22 09/18/22 release 24 hr (Invega) trazodone 50 mg tablet 50 mg PO BEDTIME PRN Insomnia 09/18/22 09/18/22 Allergies Allergy/AdvReac Type Severity Reaction Status Date / Time No Known Allergies Allergy Verified 03/05/23 11:41 Review of Systems 2 Review of Systems: Constitutional : No Fever, No Chills ENT/Mouth : No Ear Pain, No Nasal Congestion, No sore throat Eyes: No Eye Pain, No Swelling, No Redness Cardiovascular : No Chest Pain, No SOB Respiratory : No Cough, No Sputum, No Dyspnea Gastrointestinal : pos Nausea, pos Vomiting, No Diarrhea, No Hematochezia, No Melena, pos adominal pain Genitourinary : No Dysuria, No Urinary Frequency, No Hematuria Musculoskeletal : No Myalgias Skin : No Skin Lesions, No rash Neuro : No Weakness, No Numbness, No Paresthesias, No Dizziness, No Headache Psych : positive Anxiety, positive Depression, positive SI no HI Heme/Lymph: No Lymphadenopathy Endocrine : No Polyuria, No Polydipsia All other systems reviewed and are negative [facility] Past Medical History Attestation statement: The following information was validated with the patient. Source: old records reviewed Medical History Schizophrenia, paranoid type Sinus tachycardia Leukocytosis Ankle fracture, lateral malleolus, closed Noncompliance with medication regimen Depression Vitamin D deficiency Paranoia Social History Social History Household Members: None Household Members Other:: Kathy Housing: Apartment Do you presently have visiting nurse or other home services: No Unable to assess alcohol history related to: Refusing to respond Alcohol intake: current Alcohol intake frequency: a few times a month Alcohol type: beer Comment: Q5 MIN SAFETY CHECKS Patient Tobacco Use Status: Current someday Tobacco user Tobacco use type: Cigarette Cigarette Packs Per Day: 1 Cigarettes Per Day: 20.0 Years Smoked: 1 month Smoked in Last 30 Days: Yes Second Hand Smoke Exposure: No Use of substances other than those prescribed or required for medical reasons: No Substance Use Type: Marijuana Advance Directives: No service: No Sexual orientation: Don't Know Physical Exam 2 Vital Signs: Vital Signs: Last Vital Signs Temp 98.5 F 03/05/23 15:11 Pulse 79 03/05/23 15:11 Resp 16 03/05/23 15:11 BP 136/98 H 03/05/23 15:11 Pulse Ox 98 03/05/23 15:11 O2 Del Method Room Air 03/05/23 15:11 BMI result Body Mass Index 25.8 Appearance: Alert. Oriented X3. No acute distress. withdrawn, flat affect Eyes: Pupils equal, round and reactive to light. ENT: Pharynx normal. Neck: Normal inspection. Neck supple. CVS: Normal heart rate and rhythm. Pulses normal. Respiratory: No respiratory distress. Breath sounds normal. Abdomen: Soft and non-tender. no grimace due to palpation Skin: Skin warm and dry. Normal skin color. Normal skin turgor. Extremities: No lower extremity edema. No calf ttp. Neuro: Oriented X 3. No motor deficit. No sensory deficit. CN2-12 intact Course Course Course Narrative: WBC [address] scan ordered for appendicitis Reevaluation(s) Reevaluation #1: Physician observation started at 406pm. Patient placed in physician observation because the patient needed more time for CARE team to assess the need for psych admission. At the time observation was started the patient's vitals were stable, patient is alert and oriented but slightly agitated/anxious, Neuro: nonfocal, CV RRR, Lungs clear Medications Administered Generic Name Dose Route Start Last Admin Trade Name Freq PRN Reason Stop Dose Admin Sodium Chloride 1,000 mls @ 999 mls/hr 03/05/23 15:30 03/05/23 15:38 Ns IV 03/05/23 16:30 999 mls/hr .Q1H1M KIANA Administration Discontinued Medications Generic Name Dose Route Start Last Admin Trade Name Freq PRN Reason Stop Dose Admin Famotidine 20 mg 03/05/23 11:16 03/05/23 11:46 Famotidine 20 Mg Tablet PO 03/05/23 11:17 20 mg ONCE ONE Administration Sodium Chloride 1,000 mls @ 999 mls/hr 03/05/23 13:00 03/05/23 15:02 Ns IV 03/05/23 14:00 Infused .Q1H1M KIANA Infusion Iohexol 85 ml 03/05/23 14:04 03/05/23 14:04 Iohexol 350 Mg/Ml 100 Ml Infus..Btl IV 03/05/23 14:05 85 ml ONCE ONE Administration Ondansetron HCl 4 mg 03/05/23 11:16 03/05/23 11:47 Ondansetron Odt 4 Mg Tab.Rapdis TRANSLINGU 03/05/23 11:17 4 mg ONCE ONE Administration Tamsulosin HCl 0.4 mg 03/05/23 15:05 03/05/23 15:38 Tamsulosin Hcl 0.4 Mg Capsule PO 03/05/23 15:06 0.4 mg ONCE ONE Administration Medical Decision Making Medical Decision Making MDM Narrative: 32 yo male with schizoaffective disorder here with c/o SI and self harm but also c/o constipation and abdominal pain 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 Differential Diagnosis Differential Diagnoses: The differential diagnosis associated with the presentation includes gastritis, viral syndrome, SI Admission/Observation Consideration of admission/observation: Escalation of care including admission/observation considered observe overnight for pain control but also CARE team Dr. Linares recommends observe start on levofloxacin as well given WBC count, no intervention at this time Consult Healthcare Provider Management of the patient was discussed with: Refr[employer] [employer] I[facility] and Behavioral Health Provider Lab Data MDM Lab Attestation statement: I reviewed the patient's lab results. 03/05/23 12:07 03/05/23 12:07 Labs: Lab Results 03/05/23 03/05/23 03/05/23 Range/Units 12:07 12:14 15:24 WBC 19.2 H (4.8-10.8) X10*3/uL RBC 4.87 (4.60-5.80) X10*6/uL Hgb 15.8 (14.0-18.0) g/dl Hct 44.4 (42.0-52.0) % MCV 91.2 (80.0-98.0) fL MCH 32.4 (27.0-33.0) pg MCHC 35.6 (31.0-36.0) g/dl RDW 12.4 (11.0-16.0) % Plt Count 303 (160-400) X10*3/uL MPV 9.4 (9.4-12.4) fL Immature Gran % (Auto) 0.3 (0.0-0.4) % Neut % (Auto) 91.4 H (45-73) % Lymph % (Auto) 4.7 L (20-40) % [place] % (Auto) 3.3 (2-11) % Eos % (Auto) 0.1 (0-4) % Baso % (Auto) 0.2 (0-2) % Lymph # (Auto) 0.9 L (1.2-4.9) X10*3/uL [place] # (Auto) 0.6 (0.1-1.2) X10*3/uL Eos # (Auto) 0.0 (0.0-0.4) X10*3/uL Baso # (Auto) 0.0 (0.0-0.2) X10*3/uL Abs Immat Gran (auto) 0.06 H (0.00-0.03) X10*3/uL Absolute Neuts (auto) 17.5 H (2.0-8.3) x10*3/uL Absolute Nucleated RBC 0.000 (0.0-0.012) X10*3/uL Nucleated RBC % (auto) 0.0 (0.0-0.2) /100WBC Smear Tech's Comments VERIFIED Sodium 138 (135-145) mmol/L Potassium 3.9 (3.3-5.1) mmol/L Chloride 107 (96-108) mmol/L Carbon Dioxide 21 L (22-29) mmol/L Anion Gap 14 (12-20) BUN 9 (9-16) mg/dL Creatinine 1.12 (0.5-1.4) mg/dL Estim Creat Clear Calc 87.0 Estimated GFR > 60 Random Glucose 174 H (60-115) mg/dL Calcium 10.5 H D (8.4-10.2) mg/dL Magnesium 1.9 (1.6-2.6) mg/dL Total Bilirubin 0.7 (0.0-1.0) mg/dL Direct Bilirubin 0.2 (0.0-0.5) mg/dL AST 26 (5-37) U/L ALT 45 H (0-40) U/L Alkaline Phosphatase 141 H (39-117) U/L C-Reactive Protein < 0.10 (< or = 0.50) mg/dL Total Protein 7.3 (6.5-8.0) g/dL Albumin 4.6 (3.5-5.0) g/dL Lipase 16 (8-78) U/L Urine Color Yellow Urine Appearance Clear Urine pH 7.5 (5.0-9.0) Ur Specific [place] >= 1.030 H (1.005-1.025) Urine Protein Negative (Neg-Trace) mg/dL Urine Glucose (UA) Negative (Negative) mg/dL Urine Ketones Negative (Negative) mg/dL Urine Blood Trace H (Negative) Urine Nitrite Negative (Negative) Ur Leukocyte Esterase Negative (Negative) Urine RBC 3-5 H (0-2) /HPF Urine WBC 0-5 (0-5) /HPF Ur Squamous Epith Cells 0-2 (0-2) /HPF Urine Bacteria None Seen (None Seen) Hyaline Casts 0-2 (0-2) /LPF Urine Opiates Screen Not Detected (Not Detect) Urine Fentanyl Screen Not Detected (Not Detect) Ur Barbiturates Screen Not Detected (Not Detect) Ur Phencyclidine Scrn Not Detected (Not Detect) Ur Amphetamines Screen Not Detected (Not Detect) U Benzodiazepines Scrn Not Detected (Not Detect) Urine Cocaine Screen Not Detected (Not Detect) U Marijuana (THC) Screen POSITIVE H (Not Detect) Ethyl Alcohol < 10 mg/dL COVID-19 (JARAD) Negative (Negative) COVID-19 Clin Com See Note Independent Interpretation I performed an independent interpretation of an: Plain X-Ray and CT Scan (9mm R prox stone) Radiology Impression Discussion of test interpretation with radiology: I have reviewed the radiologist's reading. External Record Review External record reviewed: Inpatient record Discharge Plan Discharge Clinical Impression: Suicidal ideation, Calculus, ureteral Elevated WBC count Qualifiers: Leukocytosis type: unspecified Qualified Code(s): D72.829 - Elevated white blood cell count, unspecified Abdominal pain Qualifiers: Abdominal location: right lower quadrant Qualified Code(s): R10.31 - Right lower quadrant pain Patient Disposition: Still a Patient Prescriptions: No Action trazodone 50 mg Tablet 50 mg PO BEDTIME PRN (Reason: Insomnia) paliperidone [Invega] 6 mg Tablet Extended Release 24 Hr 6 mg PO BID hydroxyzine HCl 25 mg Tablet 25 mg PO BID PRN (Reason: Anxiety)
--- NOTE | 2023-03-05 11:36 | MHC.EDTECH ---
Belongings in locker 12
[2023-03-05 11:37] VITALS: BP 144/89; PULSE 80; RESP 16; TEMP 36.5; O2SAT 96; BMI 25.8
[2023-03-05] MEDS: Famotidine 20 MG TABLET PO (11:46)
[2023-03-05] MEDS: Ondansetron ODT 4 MG TAB.RAPDIS TRANSLINGU (11:47)
--- NOTE | 2023-03-05 11:52 | PC.NURSE ---
Pt is alert and oriented, soft spoken and guarded with questions asked. Reports RUQ abd pain after eating spaghetti last night. States same pain after eating spaghetti x 1 week ago. Pt also reports +SI, no plan. When asked about h/o self harm pt reports punching velazco. Denies A/H hallucinations. 1:1 pt observer at bedside
[2023-03-05 12:28] LABS: COVID-19 Test Negative (Negative); IDNOW Serial# BCCEAD1C
[2023-03-05 12:38] LABS: Amphetamine Screen Urine Not Detected (Not Detect); Barbiturates, Urine Not Detected (Not Detect); Benzodiazepines Screen Urine Not Detected (Not Detect); Cannabinoid Screen Urine POSITIVE (Not Detect); Cocaine Screen Urine Not Detected (Not Detect); Fentanyl, urine Not Detected (Not Detect); Opiate Screen Urine Not Detected (Not Detect); Phencyclidine Screen Urine Not Detected (Not Detect)
[2023-03-05 12:39] LABS: Basophils Percent Auto 0.2 % (0-2); Eosinophils Percent Auto 0.1 % (0-4); Hematocrit 44.4 % (42.0-52.0); Hemoglobin 15.8 g/dl (14.0-18.0); Imm Gran Abs Auto 0.06 X10*3/uL (0.00-0.03); Imm Gran Pct Auto 0.3 % (0.0-0.4); Lymphocytes Absolute Auto 0.9 X10*3/uL (1.2-4.9); Lymphocytes Percent Auto 4.7 % (20-40); MANUAL DIFF FLAG SCAN; Mean Corpuscular HGB Conc 35.6 g/dl (31.0-36.0); Mean Corpuscular Hemoglobin 32.4 pg (27.0-33.0); Mean Corpuscular Volume 91.2 fL (80.0-98.0); Mean Platelet Volume 9.4 fL (9.4-12.4); Monocytes Absolute Auto 0.6 X10*3/uL (0.1-1.2); Monocytes Percent Auto 3.3 % (2-11); Neutrophils Absolute Auto 17.5 x10*3/uL (2.0-8.3); Neutrophils Percent Auto 91.4 % (45-73); Platelet Count 303 X10*3/uL (160-400); Red Blood Count 4.87 X10*6/uL (4.60-5.80); Red Cell Distribution Width 12.4 % (11.0-16.0); SCAN SMEAR FLAG 1; White Blood Count 19.2 X10*3/uL (4.8-10.8)
[2023-03-05 12:43] LABS: Alanine Aminotransferase 45 U/L (0-40); Albumin Level 4.6 g/dL (3.5-5.0); Alkaline Phosphatase 141 U/L (39-117); Anion Gap 14 (12-20); Aspartate Amino Transferase 26 U/L (5-37); Bilirubin Direct 0.2 mg/dL (0.0-0.5); Bilirubin Total 0.7 mg/dL (0.0-1.0); Blood Urea Nitrogen 9 mg/dL (9-16); C Reactive Protein < 0.10 mg/dL (< or = 0.50); Calcium 10.5 mg/dL (8.4-10.2); Carbon Dioxide 21 mmol/L (22-29); Chloride 107 mmol/L (96-108); Estimated Glomerular Filt Rate > 60; Ethanol < 10 mg/dL; Glucose Random 174 mg/dL (60-115); Lipase 16 U/L (8-78); Magnesium 1.9 mg/dL (1.6-2.6); Potassium 3.9 mmol/L (3.3-5.1); Sodium 138 mmol/L (135-145); Total Protein 7.3 g/dL (6.5-8.0)
[2023-03-05 13:02] LABS: SLIDE REVIEW VERIFIED
[2023-03-05] MEDS: 0.9 % Sodium Chloride 1,000 ML 999 ML IV ×2 (13:48→15:38)
[2023-03-05] MEDS: iohexoL 350 MG/ML 100 ML INFUS..BTL 85 ML IV (14:04)
[2023-03-05 15:11] VITALS: BP 136/98; PULSE 79; RESP 16; TEMP 36.9; O2SAT 98
[2023-03-05 15:32] LABS: Appearance Urine Clear; Color Urine Yellow; Glucose Urine UA Negative (Negative); Leukocyte Esterase Urine Negative (Negative); Nitrite Urine Negative (Negative); PH 7.5 (5.0-9.0); Specific Gravity - Urine >= 1.030 (1.005-1.025); UMIC TRIGGER UACC YES; Urine Blood Trace (Negative); Urine Ketones Negative (Negative); Urine Protein Negative (Neg-Trace)
[2023-03-05 15:34] LABS: Bacteria Urine None Seen (None Seen); Hyaline Casts Urine 0-2 /LPF (0-2); Squamous Epithelial Cell Urine 0-2 /HPF (0-2); WBC Urine 0-5 /HPF (0-5)
[2023-03-05] MEDS: Tamsulosin HCL 0.4 MG CAPSULE PO (15:38)
[2023-03-05] MEDS: Acetaminophen 325 MG TABLET 975 MG PO (16:13)
[2023-03-05] MEDS: cefTRIAXone sodium 1 GM in 0.9 % Sodium Chloride 50 ML IV (16:13)
--- NOTE | 2023-03-05 17:35 | PC.NURSE ---
Care team at bedside with pt.
--- NOTE | 2023-03-05 18:34 | MHC.CARE ---
Pt is an inpatient bedsearch, agreeable to plan
--- NOTE | 2023-03-05 18:59 | PC.NURSE ---
This RN verified medications with patient, states he hasn't taken his medications recently. Also states that Trazodone was scary but declined to elaborate
[2023-03-05 19:01] VITALS: BP 147/89; PULSE 68; RESP 16; TEMP 37.2; O2SAT 100
--- NOTE | 2023-03-05 23:20 | PC.NURSE ---
Assumed care of pt. Pt lying on stretcher, eyes closed, respirations even and unlabored, no acute distress at this time. Continuing plan of care with safety measures per protocol.
--- NOTE | 2023-03-06 01:45 | PC.NURSE ---
Pt awake, kneeling at edge of bed, no acute distress at this time. Calm and cooperative with staff. Continuing plan of care.
--- NOTE | 2023-03-06 04:27 | PC.NURSE ---
Pt remains lying on stretcher, eyes closed, respirations even and unlabored, no acute medical or behavioral issues at this time. Continuing plan of care.
[2023-03-06 05:45] VITALS: BP 140/86; PULSE 77; RESP 16; TEMP 37.4; O2SAT 97
--- NOTE | 2023-03-06 08:10 | PC.NURSE ---
ASSUMED CARE OF THIS PT AT 0700. PT SLEEPING AT THE TIME OF ASSUMING CARE. UNEVENTFUL NIGHT REPORTED BY OVERNIGHT NURSE. WILL CONTINUE TO OBSERVE.
[2023-03-06] MEDS: levoFLOXacin 500 MG TABLET PO (10:52)
[2023-03-06] MEDS: oxyCODONE HCl Immed Release 5 MG TABLET PO (13:55)
[2023-03-06 16:57] VITALS: BP 142/88; PULSE 95; RESP 18; TEMP 37.4; O2SAT 98
--- NOTE | 2023-03-06 17:25 | PC.NURSE ---
PT IN COMMON AREA WATCHING TV. NO COMPLAINTS AT THIS TIME.
--- NOTE | 2023-03-06 18:12 | PHA.MEDREC ---
Pharmacy Consult ? Medication Reconciliation Pharmacy has completed the medication reconciliation.
--- NOTE | 2023-03-06 18:35 | PC.NURSE ---
MED REC DONE BY PHARMACY, HOME MEDS ORDERED.
--- NOTE | 2023-03-07 06:18 | PC.NURSE ---
Pt Denies SI/HI at this time. Endorsing VH states he sees shadows when he is stressed. PT states he continues to have right flank pain but declined medication at this time. Plan of care ongoing.
[2023-03-07 06:30] VITALS: BP 128/90; PULSE 89; RESP 16; TEMP 36.8; O2SAT 100
[2023-03-07] MEDS: levoFLOXacin 500 MG TABLET PO (10:23)
[2023-03-07] MEDS: hydrOXYzine HCL 25 MG TABLET PO (10:23)
--- NOTE | 2023-03-07 11:20 | MHC.CARE ---
RAD team conducted a statewide bedsearch, unfortunately no beds are available statewide. RAD Team will continue bedsearch tomorrow (03/08) if deemed necessary
[2023-03-07 16:36] VITALS: BP 122/89; PULSE 96; RESP 18; TEMP 37.7; O2SAT 98
[2023-03-07] MEDS: Acetaminophen 325 MG TABLET 650 MG PO (16:55)
--- NOTE | 2023-03-07 19:06 | PC.NURSE ---
patient appears to remain at rest at present respirations are even and unlabored patient appears in no distress.
[2023-03-07 22:12] VITALS: BP 105/69; PULSE 87; RESP 16; TEMP 36.5; O2SAT 100
[2023-03-08] MEDS: traZODone HCL 50 MG TABLET PO ×2 (01:03→21:02)
[2023-03-08] MEDS: oxyCODONE HCl Immed Release 5 MG TABLET PO ×2 (04:18→23:50)
--- NOTE | 2023-03-08 07:15 | PC.NURSE ---
Resumed care of patient, he is currently sleeping comfortably in his room, q15 minute checks maintained, safety measures maintained, awaiting bed placement at this time
[2023-03-08] MEDS: levoFLOXacin 500 MG TABLET PO (08:33)
[2023-03-08 08:49] LABS: COVID-19 Test Negative (Negative); IDNOW Serial# 08D9AD1C
[2023-03-08 08:51] VITALS: BP 127/67; PULSE 80; RESP 16; TEMP 36.8; O2SAT 98
[2023-03-08 16:23] VITALS: BP 128/82; PULSE 87; RESP 20; TEMP 36.5; O2SAT 100
[2023-03-08 23:09] VITALS: BP 133/91; PULSE 62; RESP 16; TEMP 36.4; O2SAT 100
[2023-03-08] MEDS: hydrOXYzine HCL 25 MG TABLET PO (23:50)
--- NOTE | 2023-03-09 01:00 | PC.NURSE ---
Patient walking around unit calm and cooperative with staff, sat in common room watching TV for a while. Awaiting full effectiveness of medications at this time.
--- NOTE | 2023-03-09 02:55 | PC.NURSE ---
Patient resting on bed with eyes closed at this time, chest rise equal and no s/s of distress noted.
[2023-03-09] MEDS: OLANZapine 5 MG TABLET PO (06:29)
--- NOTE | 2023-03-09 06:29 | PC.NURSE ---
pt given katelyn shelby and medicated per may.
[2023-03-09] MEDS: levoFLOXacin 500 MG TABLET PO (12:03)
[2023-03-09 12:53] VITALS: BP 115/80; PULSE 63; RESP 16; TEMP 36.9; O2SAT 99
--- NOTE | 2023-03-09 13:08 | MHC.CARE ---
AUTH INFO, called [place] [phone]/ Ana Paula PARRA gives auth starting 03/09/2023. Apparently, [facility] is a [employer] PLAN per [place]. This means: Unit UR will call the State Superintendent Of Schools, Elysia Rudd upon patient d/c ([phone] If the patient is still on the unit after 13 days, State [employer] will call the UR on the unit to get more information.
--- NOTE | 2023-03-09 13:52 | PC.NURSE ---
Levaquin given. PT asleep most of morning. No behavioral concerns.
--- NOTE | 2023-03-09 14:29 | PC.ADMIT ---
Pt was admitted to at 1330 from?[facility] for treatment of SI. The precipitant of admission includes decompensation due to pt's report of not being on medications for a long time , and self injurious behaviors that include punching a mirror and burning his fingertips. Patient is soft spoken with poor eye contact. Pt presents guarded, and appears to be responding to internal stimuli during admission process. Patient reports he cannot describe his mood. Affect is anxious. He denies hallucinations but appears internally preoccupied. Pt states he lives alone, but reports my neighbors interrupt me and focus on me. Pt states that he feels targeted by his neighbors and describes them as being too loud . Thought process is disorganized and ability to focus is poor. Pt states poor sleep for awhile , and reports appetite is fair. Patient reports daily nicotine use and reports I smoke a lot of cigarettes . Pt declines nicotine replacement therapy and states I need to go cold turkey. Pt denies physical complaints but does acknowledge that he has kidney stones. He denies ideation, plan or intent to harm self or others. Attempted to complete safety tool with patient and pt repeatedly stated I don't think I should answer that right now. Pt signed a release for his brother Graeme Argueta, but declined to sign any additional releases. Pt oriented to unit and placed on 15 minute checks for safety.
[2023-03-09 18:00] VITALS: BP 118/78; PULSE 78; TEMP 36.8
[2023-03-09] MEDS: traZODone HCL 50 MG TABLET PO (19:59)
[2023-03-10 07:00] VITALS: BP 139/82; PULSE 71; TEMP 36.2; O2SAT 100
[2023-03-10 08:24] LABS: Estimated Average Glucose 117 mg/dL; Hemoglobin A1c % 5.7 % (<6.0)
[2023-03-10] MEDS: levoFLOXacin 500 MG TABLET PO (08:51)
[2023-03-10 08:52] LABS: Free T4 (Free Thyroxine) 1.05 ng/dL (0.71-1.85); Thyroid Stimulating Hormone 1.12 uIU/mL (0.32-4.0)
[2023-03-10 09:04] LABS: Folate 13.2 ng/mL (> or = 4.0)
[2023-03-10 10:14] LABS: Cholesterol 142 mg/dL (<200); HDL Cholesterol 34 mg/dL (>40); LDL Cholesterol Calculated 79 mg/dL (<100); Magnesium 1.6 mg/dL (1.6-2.6); Triglycerides 147 mg/dL (<150)
--- NOTE | 2023-03-10 10:42 | PC.NURSE ---
PT SIGNED A 3 DAY ON MAR 10 TO BE UP ON TuesdayMAR 15.
[2023-03-10 10:59] LABS: Vitamin B12 315 pg/mL (200-900)
[2023-03-10] MEDS: Paliperidone ER 3 MG TAB.ER.24 PO (13:47)
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
[2023-03-10 18:00] VITALS: BP 134/82; PULSE 72; TEMP 36.3; O2SAT 100
[2023-03-10] MEDS: traZODone HCL 50 MG TABLET PO (20:11)
[2023-03-11 08:56] VITALS: BP 137/72; PULSE 77; RESP 16; TEMP 36.3; O2SAT 100
[2023-03-11] MEDS: levoFLOXacin 500 MG TABLET PO (09:07)
--- NOTE | 2023-03-11 14:04 | HO.PSYCHPN ---
Subjective Subjective Date of Service: 03/11/23 Reason For Visit: Schizophrenia Subjective Notes: Conditional Voluntary and 3 Day Healthcare Proxy: No Guardianship: No Medical Problems Affecting Mental Status: No Interim History: Resting in bed this afternoon. Reports he is tolerating medication initiation Denies questions or concerns States he awaits discharge, I received what I came in for, and thank all of you. Medication Compliance: Yes Side effects from medications: No Attending Groups: Intermittent Review of Systems Acute medical concerns: No Medical Review of Systems: unchanged Review of Systems Review of Systems Yes all other systems are reviewed and are negative (denies) Mental Status Exam Mental Status Exam Patient Appearance: Appropriate Patient Orientation: Person, Place, Time and Situation Level of Consciousness: Alert Patient Behavior: Guarded, Talkative, Cooperative, Suspicious, Anxious, Fatigued, Distractible and Good Eye Contact Mood Description: Withdrawn and Anxious Affect Description: Withdrawn and Anxious Patient Cognition Impaired: No Ability to Follow Directions: Good Speech Pattern: Spontaneous Speech Memory Description: Episodic Impaired Delusions: Present Perceptual Disturbances: Depersonalization and Derealization Thought Process: Distracted and Rumination Thought Content: positive for [place], positive for Circumstantial and positive for Suicidal Ideation (denies) Depressive Symptoms: Increased Anxiety, Unhappiness, Thoughts of /Suicide (denies) and Difficulty Concentrating Judgement: Fair Diagnostics Vital Signs (24Hr): Vital Signs - 24 hr 03/10/23 18:00 03/11/23 08:56 Temperature 97.3 F 97.4 F Pulse Rate 72 77 Respiratory Rate 16 Blood Pressure 134/82 137/72 Pulse Oximetry 100 100 Oxygen Delivery Method Room Air Room Air BMI result Body Mass Index 25.8 Labs 03/09/23 12:42 03/05/23 12:07 Labs: Laboratory Results - last 48 hr 03/10/23 03/10/23 08:08 09:51 Estimat Average Glucose 117 Hemoglobin A1c % 5.7 Magnesium 1.6 Triglycerides 147 Cholesterol 142 LDL Cholesterol, Calc 79 HDL Cholesterol 34 L Vitamin B12 315 Folate 13.2 TSH 1.12 Free T4 1.05 Imaging Radiology Impressions: ITS Impressions KUB X-Ray 03/05/23 11:44 IMPRESSION: Unremarkable bowel gas pattern. Stool and air seen throughout the colon to the rectum. Abdomen/Pelvis CT 03/05/23 14:09 IMPRESSION: Right-sided hydronephrosis and hydroureter extending up to a 9 mm calcification in the proximal right ureter at the level of L3. Medications Medications Current Medications Acetaminophen (Acetaminophen 325 Mg Tablet) 650 mg PO Q6H PRN PRN Reason: Headache/Pain Mild Scale (1-3) Last Admin: 03/09/23 16:37 Dose: 650 mg Al Hydroxide/Mg Hydroxide (Magnesium Hydrox/Alum Hydrox 30 Ml Oral.Susp) 30 ml PO Q6H PRN PRN Reason: Heartburn/Nausea Hydroxyzine HCl (Hydroxyzine Hcl 25 Mg Tablet) 25 mg PO BID PRN PRN Reason: Anxiety Levofloxacin (Levofloxacin 500 Mg Tablet) 500 mg PO DAILY [facility] Stop: 03/12/23 09:01 Last Admin: 03/11/23 09:07 Dose: 500 mg Magnesium Hydroxide (Milk Of Magnesia 30 Ml Oral.Susp) 30 ml PO DAILY PRN PRN Reason: Constipation Olanzapine (Olanzapine 5 Mg Tablet) 5 mg PO Q4H PRN PRN Reason: psychosis, agitation Last Admin: 03/10/23 01:01 Dose: 5 mg Paliperidone (Paliperidone Er 3 Mg Tab.Er.24) 3 mg PO BID KIANA Last Admin: 03/11/23 09:06 Dose: 3 mg Trazodone HCl (Trazodone Hcl 50 Mg Tablet) 50 mg PO BEDTIME MRX1 PRN PRN Reason: Insomnia Last Admin: 03/10/23 23:05 Dose: 50 mg Allergies Allergies Allergy/AdvReac Type Severity Reaction Status Date / Time No Known Allergies Allergy Verified 03/05/23 11:41 Assessment & Plan Assessment & Plan (1) Schizophrenia, paranoid type: Status: Acute Code(s): F20.0 - Paranoid schizophrenia Plan 32 yo male, history of paranoid schizophrenia, non compliance with meds and treatment. Pt presents with ureteral calculus, SI, and a desire to re-start treatment with medications after an 8-9 month break. Plan: Invega 3 mg bid Continue trazodone, hydroxyzine Collateral contact Diagnostics 03/11/23 Three day notice Continue current regime/plan. Informed Consent: understands Reason for continued inpatient stay Substantial Risk for: rapid decompensation Time Spent With Patient Time: Total time managing care of this patient today ____ minutes.
[2023-03-11 18:00] VITALS: BP 134/76; PULSE 74; RESP 16; TEMP 36.2; O2SAT 99
[2023-03-12] MEDS: levoFLOXacin 500 MG TABLET PO (10:22)
[2023-03-12 12:46] VITALS: BP 120/77; PULSE 92; RESP 16; TEMP 36.4; O2SAT 98
--- NOTE | 2023-03-12 15:36 | HO.PSYCHPN ---
Subjective Subjective Date of Service: 03/12/23 Reason For Visit: Schizophrenia Subjective Notes: Conditional Voluntary and 3 Day Healthcare Proxy: No Guardianship: No Medical Problems Affecting Mental Status: No Interim History: Pt seen, reviewed with the team. Pt reports he is tolerating Invega without adverse effects. He is spending much time in his room, however, is seen intermittently in the milieu, but remains away from peers. He reports I am waiting for Tuesday, I want to go home. No behavioral issues noted. Medication Compliance: Yes Side effects from medications: No Attending Groups: No Review of Systems Acute medical concerns: No Medical Review of Systems: unchanged Review of Systems Review of Systems Yes all other systems are reviewed and are negative (denies) Mental Status Exam Mental Status Exam Patient Appearance: Appropriate Patient Orientation: Person, Place, Time and Situation Level of Consciousness: Alert Patient Behavior: Guarded, Talkative, Cooperative, Suspicious, Anxious, Fatigued, Distractible and Good Eye Contact Mood Description: Withdrawn and Anxious Affect Description: Withdrawn and Anxious Patient Cognition Impaired: No Ability to Follow Directions: Good Speech Pattern: Spontaneous Speech Memory Description: Episodic Impaired Delusions: Present Thought Process: Distracted and Rumination Thought Content: positive for [place], positive for Circumstantial and positive for Suicidal Ideation (denies) Depressive Symptoms: Increased Anxiety, Unhappiness, Thoughts of /Suicide (denies) and Difficulty Concentrating Judgement: Fair Diagnostics Vital Signs (24Hr): Vital Signs - 24 hr 03/11/23 18:00 03/12/23 12:46 Temperature 97.2 F 97.6 F Pulse Rate 74 92 Respiratory Rate 16 16 Blood Pressure 134/76 120/77 Pulse Oximetry 99 98 Oxygen Delivery Method Room Air Room Air BMI result Body Mass Index 25.8 Labs 03/09/23 12:42 03/05/23 12:07 Imaging Radiology Impressions: ITS Impressions KUB X-Ray 03/05/23 11:44 IMPRESSION: Unremarkable bowel gas pattern. Stool and air seen throughout the colon to the rectum. Abdomen/Pelvis CT 03/05/23 14:09 IMPRESSION: Right-sided hydronephrosis and hydroureter extending up to a 9 mm calcification in the proximal right ureter at the level of L3. Medications Medications Current Medications Acetaminophen (Acetaminophen 325 Mg Tablet) 650 mg PO Q6H PRN PRN Reason: Headache/Pain Mild Scale (1-3) Last Admin: 03/12/23 10:30 Dose: 650 mg Al Hydroxide/Mg Hydroxide (Magnesium Hydrox/Alum Hydrox 30 Ml Oral.Susp) 30 ml PO Q6H PRN PRN Reason: Heartburn/Nausea Hydroxyzine HCl (Hydroxyzine Hcl 25 Mg Tablet) 25 mg PO BID PRN PRN Reason: Anxiety Last Admin: 03/11/23 19:18 Dose: 25 mg Magnesium Hydroxide (Milk Of Magnesia 30 Ml Oral.Susp) 30 ml PO DAILY PRN PRN Reason: Constipation Olanzapine (Olanzapine 5 Mg Tablet) 5 mg PO Q4H PRN PRN Reason: psychosis, agitation Last Admin: 03/10/23 01:01 Dose: 5 mg Paliperidone (Paliperidone Er 3 Mg Tab.Er.24) 3 mg PO BID KIANA Last Admin: 03/12/23 10:22 Dose: 3 mg Trazodone HCl (Trazodone Hcl 50 Mg Tablet) 50 mg PO BEDTIME MRX1 PRN PRN Reason: Insomnia Last Admin: 03/12/23 01:01 Dose: 50 mg Allergies Allergies Allergy/AdvReac Type Severity Reaction Status Date / Time No Known Allergies Allergy Verified 03/05/23 11:41 Assessment & Plan Assessment & Plan (1) Schizophrenia, paranoid type: Status: Acute Code(s): F20.0 - Paranoid schizophrenia Plan 32 yo male, history of paranoid schizophrenia, non compliance with meds and treatment. Pt presents with ureteral calculus, SI, and a desire to re-start treatment with medications after an 8-9 month break. Plan: Invega 3 mg bid Continue trazodone, hydroxyzine Collateral contact Diagnostics 03/11/23 Three day notice Continue current regime/plan. 03/12/23 Continue current regime/plan. Denies adverse effects at this time. Informed Consent: understands Reason for continued inpatient stay Substantial Risk for: rapid decompensation Time Spent With Patient Time: Total time managing care of this patient today ____ minutes.
[2023-03-12 16:40] VITALS: BP 124/62; PULSE 93; TEMP 36.6
[2023-03-13 08:57] VITALS: BP 143/86; PULSE 92; RESP 16; TEMP 36.3; O2SAT 99
[2023-03-13 17:28] VITALS: BP 133/73; PULSE 78; TEMP 36.4
[2023-03-14 08:20] VITALS: BP 114/69; PULSE 90; RESP 16; TEMP 36.3; O2SAT 98
--- NOTE | 2023-03-14 10:08 | P.PNPSI_ITS ---
Subjective Subjective Date of Service: 03/13/23 Reason For Visit: Schizophrenia Subjective Notes: 3 Day Healthcare Proxy: No Guardianship: No Medical Problems Affecting Mental Status: No Interim History: Pt visable in milieu. Asks to discharge today. We discussed that we are monitoring for possible effects of restarting Invega, thus we are looking to 03/15 to maximize our time with him to make sure this is the correct choice of meds. Some interaction with peers, however, does tend to remain on the periphery of the milieu. Medication Compliance: Yes Side effects from medications: No Attending Groups: No Review of Systems Acute medical concerns: No Medical Review of Systems: unchanged Mental Status Exam Mental Status Exam Patient Appearance: Appropriate Patient Orientation: Person, Place, Time and Situation Level of Consciousness: Alert Patient Behavior: Guarded, Talkative, Cooperative, Suspicious, Anxious, Fatigued, Distractible and Good Eye Contact Mood Description: Withdrawn and Anxious Affect Description: Withdrawn and Anxious Patient Cognition Impaired: No Ability to Follow Directions: Good Speech Pattern: Spontaneous Speech Memory Description: Episodic Impaired Delusions: Present Thought Process: Distracted and Rumination Thought Content: positive for [place], positive for Circumstantial and positive for Suicidal Ideation (denies) Depressive Symptoms: Increased Anxiety, Unhappiness, Thoughts of /Suicide (denies) and Difficulty Concentrating Judgement: Fair Diagnostics Vital Signs (24Hr): Vital Signs - 24 hr 03/13/23 17:28 03/14/23 08:20 Temperature 97.6 F 97.4 F Pulse Rate 78 90 Respiratory Rate 16 Blood Pressure 133/73 114/69 Pulse Oximetry 98 Oxygen Delivery Method Room Air BMI result Body Mass Index 25.8 Labs 03/09/23 12:42 03/05/23 12:07 Imaging Radiology Impressions: ITS Impressions KUB X-Ray 03/05/23 11:44 IMPRESSION: Unremarkable bowel gas pattern. Stool and air seen throughout the colon to the rectum. Abdomen/Pelvis CT 03/05/23 14:09 IMPRESSION: Right-sided hydronephrosis and hydroureter extending up to a 9 mm calcification in the proximal right ureter at the level of L3. Medications Medications Current Medications Acetaminophen (Acetaminophen 325 Mg Tablet) 650 mg PO Q6H PRN PRN Reason: Headache/Pain Mild Scale (1-3) Last Admin: 03/12/23 10:30 Dose: 650 mg Al Hydroxide/Mg Hydroxide (Magnesium Hydrox/Alum Hydrox 30 Ml Oral.Susp) 30 ml PO Q6H PRN PRN Reason: Heartburn/Nausea Hydroxyzine HCl (Hydroxyzine Hcl 25 Mg Tablet) 25 mg PO BID PRN PRN Reason: Anxiety Last Admin: 03/14/23 02:08 Dose: 25 mg Magnesium Hydroxide (Milk Of Magnesia 30 Ml Oral.Susp) 30 ml PO DAILY PRN PRN Reason: Constipation Olanzapine (Olanzapine 5 Mg Tablet) 5 mg PO Q4H PRN PRN Reason: psychosis, agitation Last Admin: 03/10/23 01:01 Dose: 5 mg Paliperidone (Paliperidone Er 3 Mg Tab.Er.24) 3 mg PO BID KIANA Last Admin: 03/14/23 08:56 Dose: 3 mg Trazodone HCl (Trazodone Hcl 50 Mg Tablet) 50 mg PO BEDTIME MRX1 PRN PRN Reason: Insomnia Last Admin: 03/14/23 03:07 Dose: 50 mg Allergies Allergies Allergy/AdvReac Type Severity Reaction Status Date / Time No Known Allergies Allergy Verified 03/05/23 11:41 Assessment & Plan Assessment & Plan (1) Schizophrenia, paranoid type: Status: Acute Code(s): F20.0 - Paranoid schizophrenia Plan 32 yo male, history of paranoid schizophrenia, non compliance with meds and treatment. Pt presents with ureteral calculus, SI, and a desire to re-start treatment with medications after an 8-9 month break. Plan: Invega 3 mg bid Continue trazodone, hydroxyzine Collateral contact Diagnostics 03/11/23 Three day notice Continue current regime/plan. 03/13/23 Continue tx. Patient educated on: medication risk/benefits Informed Consent: understands Reason for continued inpatient stay Substantial Risk for: rapid decompensation Time Spent With Patient Time: Total time managing care of this patient today ____ minutes.
--- NOTE | 2023-03-14 10:12 | HO.PSYCHPN ---
Subjective Subjective Date of Service: 03/14/23 Reason For Visit: Schizophrenia Subjective Notes: 3 Day Healthcare Proxy: No Guardianship: No Medical Problems Affecting Mental Status: No Interim History: Met with pt, discussed with team. Pt appears more relaxed and engaged when we meet today. Talks about discharge, staying on meds, however declines referrals, declines collateral contact Denies SI, HI, perceptual alterations. Continues to be isolative in the milieu, minimal interaction with peers. Denies SE from Invega, reports dosage to be non sedating and helpful. It has always helped when I took it before. Medication Compliance: Yes Side effects from medications: No Attending Groups: No Review of Systems Acute medical concerns: No Medical Review of Systems: unchanged Review of Systems Review of Systems Yes all other systems are reviewed and are negative (denies) Mental Status Exam Mental Status Exam Patient Appearance: Appropriate Patient Orientation: Person, Place, Time and Situation Level of Consciousness: Alert Patient Behavior: Guarded, Talkative, Cooperative, Suspicious, Anxious, Fatigued, Distractible and Good Eye Contact Mood Description: Withdrawn Affect Description: Withdrawn Patient Cognition Impaired: No Ability to Follow Directions: Good Speech Pattern: Spontaneous Speech Memory Description: Episodic Impaired Delusions: Present Thought Process: Distracted and Rumination Thought Content: positive for [place], positive for Circumstantial and positive for Suicidal Ideation (denies) Depressive Symptoms: Unhappiness and Thoughts of /Suicide (denies) Judgement: Good Diagnostics Vital Signs (24Hr): Vital Signs - 24 hr 03/13/23 17:28 03/14/23 08:20 Temperature 97.6 F 97.4 F Pulse Rate 78 90 Respiratory Rate 16 Blood Pressure 133/73 114/69 Pulse Oximetry 98 Oxygen Delivery Method Room Air BMI result Body Mass Index 25.8 Labs 03/09/23 12:42 03/05/23 12:07 Imaging Radiology Impressions: ITS Impressions KUB X-Ray 03/05/23 11:44 IMPRESSION: Unremarkable bowel gas pattern. Stool and air seen throughout the colon to the rectum. Abdomen/Pelvis CT 03/05/23 14:09 IMPRESSION: Right-sided hydronephrosis and hydroureter extending up to a 9 mm calcification in the proximal right ureter at the level of L3. Medications Medications Current Medications Acetaminophen (Acetaminophen 325 Mg Tablet) 650 mg PO Q6H PRN PRN Reason: Headache/Pain Mild Scale (1-3) Last Admin: 03/12/23 10:30 Dose: 650 mg Al Hydroxide/Mg Hydroxide (Magnesium Hydrox/Alum Hydrox 30 Ml Oral.Susp) 30 ml PO Q6H PRN PRN Reason: Heartburn/Nausea Hydroxyzine HCl (Hydroxyzine Hcl 25 Mg Tablet) 25 mg PO BID PRN PRN Reason: Anxiety Last Admin: 03/14/23 02:08 Dose: 25 mg Magnesium Hydroxide (Milk Of Magnesia 30 Ml Oral.Susp) 30 ml PO DAILY PRN PRN Reason: Constipation Olanzapine (Olanzapine 5 Mg Tablet) 5 mg PO Q4H PRN PRN Reason: psychosis, agitation Last Admin: 03/10/23 01:01 Dose: 5 mg Paliperidone (Paliperidone Er 3 Mg Tab.Er.24) 3 mg PO BID KIANA Last Admin: 03/14/23 08:56 Dose: 3 mg Trazodone HCl (Trazodone Hcl 50 Mg Tablet) 50 mg PO BEDTIME MRX1 PRN PRN Reason: Insomnia Last Admin: 03/14/23 03:07 Dose: 50 mg Allergies Allergies Allergy/AdvReac Type Severity Reaction Status Date / Time No Known Allergies Allergy Verified 03/05/23 11:41 Assessment & Plan Assessment & Plan (1) Schizophrenia, paranoid type: Status: Acute Code(s): F20.0 - Paranoid schizophrenia Plan 32 yo male, history of paranoid schizophrenia, non compliance with meds and treatment. Pt presents with ureteral calculus, SI, and a desire to re-start treatment with medications after an 8-9 month break. Plan: Invega 3 mg bid Continue trazodone, hydroxyzine Collateral contact Diagnostics 03/11/23 Three day notice Continue current regime/plan. 03/14/23 Three day notice Discharge planned for 03/15/23. Patient educated on: medication risk/benefits Informed Consent: understands Reason for continued inpatient stay Substantial Risk for: stable for discharge Time Spent With Patient Time: Total time managing care of this patient today ____ minutes.
[2023-03-14 15:50] VITALS: BP 145/87; PULSE 71; RESP 16; TEMP 36.6; O2SAT 100
[2023-03-14] MEDS: OLANZapine 5 MG TABLET PO (17:22)
[2023-03-14] MEDS: hydrOXYzine HCL 25 MG TABLET PO (17:22)
[2023-03-14] MEDS: Acetaminophen 325 MG TABLET 650 MG PO (17:22)
[2023-03-14] MEDS: Paliperidone ER 3 MG TAB.ER.24 PO (22:41)
[2023-03-14] MEDS: traZODone HCL 50 MG TABLET PO (23:45)
[2023-03-15] MEDS: traZODone HCL 50 MG TABLET PO (01:53)
[2023-03-15] MEDS: OLANZapine 5 MG TABLET PO (01:55)
[2023-03-15] MEDS: Paliperidone ER 3 MG TAB.ER.24 PO (08:57)
[2023-03-15 09:56] VITALS: BP 118/68; PULSE 82; RESP 16; TEMP 36.3; O2SAT 96
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
== END 2023-03-15 11:26 | disposition home or self-care (01) | DRG 885 ==
LOC: HO.ED 03-09 11:55 → HO.PM5 03-09 13:15
PROVIDERS: Emergency Medicine; Admitting Provider Clinical Nurse Specialist Psychiatric/Mental Health, Adult; Emergency Provider Emergency Medicine; Visit Provider Clinical Nurse Specialist Psychiatric/Mental Health, Adult
DX: F20.0 Paranoid schizophrenia (principal); R45.851 Suicidal ideations; N20.1 Calculus of ureter; F17.210 Nicotine dependence, cigarettes, uncomplicated; Z91.148 Patient's other noncompliance with medication regimen for other reason; Z91.51 Personal history of suicidal behavior; Z71.6 Tobacco abuse counseling; Z23 Encounter for immunization; Z20.822 Contact with and (suspected) exposure to COVID-19; Z79.899 Other long term (current) drug therapy
CPT/HCPCS: 36415; 74018; 74177; 80048; 80061; 80076; 80307; 81001; 82607; 82746; 83036; 83690; 83735; 84439; 84443; 85025; 86140; 87635; 90686; 93005; 99285; J0696; Q9967; S9485

== ENCOUNTER 2023-03-09 13:10 | Outpatient (BNV) | payer MEDICARE, SELFPAY | END 2023-03-10 11:00 | PROVIDERS: Admitting Provider Clinical Nurse Specialist Psychiatric/Mental Health, Adult; Emergency Provider Emergency Medicine; Visit Provider Internal Medicine Cardiovascular Disease | DX: R41.82 Altered mental status, unspecified (principal); R45.851 Suicidal ideations | CPT/HCPCS: 93010 ==

== ENCOUNTER → 2023-03-09 13:10 | Outpatient (BNV) | payer OTHER, SELFPAY | PROVIDERS: Admitting Provider Clinical Nurse Specialist Psychiatric/Mental Health, Adult; Emergency Provider Emergency Medicine; Visit Provider Clinical Nurse Specialist Psychiatric/Mental Health, Adult | DX: F20.0 Paranoid schizophrenia (principal) | CPT/HCPCS: 90792; 99231; 99238 ==